=== PATIENT | female | born 1970 | race Caucasian/White ===

== ENCOUNTER → 2016-11-16 | Outpatient (CLI) | payer SELFPAY ==
[~2016-11-16] MED LIST: BISO1TAB41 PO; BPR150TCR PO; CIPR500T4 PO; CIPR500T78 PO; CITA40TA19 PO; CLIN300C3 PO; DICY20TA10 PO; DICY20TA33 PO; DICY20TA57 PO; DIVA500T PO; DULO60CA6 PO; ESCI20TA PO; ESTR0.5T PO; ESTR2TAB PO; ESTR2TAB4 PO; HYDR-3062 PO; HYDR25TA4 PO; LEVE100015 PO; LEVE500T PO; LEVE500T6 PO; LEVE500T76 PO; LORA-794 PO; LVT.1T PO; METO-272 PO; METO100T2 PO; METR500T21 PO; MORP15TA8 PO; MULT1TAB12 PO; Metronidazole PO; NAPR550T PO; NF-ESOM40C PO; OMEP-10 GT; OMEP1CAP10 PO; ONDA8TAB2 PO; ONDA8TAB6 PO; ORPH100T PO; OXYC-272 PO; OXYC-471 PO; PRM25T PO; PROM25TA14 PO; QUET50TA PO; RANI150T90 PO; TOPI100T2 PO; TRAM50TA2 PO; TRAZ-144 PO; VENL75CA PO
--- NOTE | 2016-11-16 10:35 | Diagnostic Imaging Report ---
PROCEDURE: US Abdomen, limited. TECHNIQUE: Multiple realtime grayscale images were obtained over the abdomen in various projections. INDICATION: Right upper quadrant pain. COMPARISON: Right upper quadrant ultrasound from 09/17/2013. FINDINGS: The liver is enlarged measuring 23 cm in length. It demonstrates diffuse increased echogenicity indicative of hepatic steatosis. There is no focal hepatic mass. The main portal vein is patent with antegrade flow. The gallbladder is distended without gallstones, wall thickening, or pericholecystic fluid. The common bile duct measures up to 0.4 cm in diameter. No intrahepatic biliary dilation. The visualized portions of the pancreas are normal. Portions of the head and tail are obscured by overlying bowel gas. The right kidney is normal in size. No hydronephrosis, shadowing calculi, or suspicious mass lesion. IMPRESSION: 1. Hepatomegaly with diffuse hepatic steatosis. 2. Normal gallbladder and common bile duct. Dictated by: Dictated on workstation # [id number]
== END ==
LOC: RAD 07:28
PROVIDERS: ATTEND Nurse Practitioner Adult Health
DX: K76.0 Fatty (change of) liver, not elsewhere classified (principal); R16.0 Hepatomegaly, not elsewhere classified
CPT/HCPCS: 76705

== ENCOUNTER → 2017-05-25 | Outpatient (CLI) | payer OTHER ==
[2017-05-25 09:43] LABS: THYROID STIMULATING HORMONE 5.76 UIU/ML (0.35-4.94)
--- NOTE | 2017-05-25 10:48 | Diagnostic Imaging Report ---
CLINICAL INDICATION: Patient with hyperthyroidism. COMPARISONS: None. FINDINGS: THYROID NODULES: There is a 1.1 cm x 0.5 cm x 0.7 cm slightly heterogeneous isoechoic nodule within the mid anterior aspect of the right thyroid gland. There is Doppler flow seen associated with this nodule. There are no other thyroid nodules seen. THYROID GLAND: Besides the thyroid nodule, the thyroid gland has normal size, shape and echogenicity. The right lobe measures 4.2 cm x 1.1 cm x 1.1 cm and the left lobe measures 4.2 cm x 0.9 cm x 1.2 cm in their three dimensions. ISTHMUS: The isthmus is unremarkable and measures 3 mm in thickness. Impression: There is a 1.1 cm nodule within the right thyroid gland. Otherwise, the thyroid gland is unremarkable. Dictated by: Dictated on workstation # [id number]
[2017-05-27 07:44] LABS: THYROGLOBULIN AUTOANTIBODY PT 0.13 Units (0.00-0.50)
== END ==
LOC: RAD 08:24
PROVIDERS: ATTEND Surgery
DX: E04.1 Nontoxic single thyroid nodule (principal)
CPT/HCPCS: 36415; 76536; 84439; 84443; 84480; 86376; 86800

== ENCOUNTER → 2017-06-01 | Outpatient (CLI) | payer OTHER ==
[~2017-06-01] VITALS: Ht 165.1 cm; Wt 78.5 kg
[~2017-06-01] MED LIST changes: +LIDOCAINE 1% INJ 20 ML (XYLOCAINE) VIAL INJ ONE
[2017-06-01 13:41] VITALS: BP 120/67
[2017-06-01 14:15] VITALS: BP 129/80
--- NOTE | 2017-06-01 16:12 | Diagnostic Imaging Report ---
EXAMINATION: US-guided fine needle biopsy-thyroid. INDICATION: Right thyroid nodule. CONSENT: Informed consent was obtained from the patient. The risks, benefits, potential complications and alternatives were reviewed and all questions answered to the patient's satisfaction. FINDINGS: Solid 1 cm right thyroid nodule. PROCEDURE: After sterile preparation and draping, 1% lidocaine was utilized for local anesthesia. A 25-gauge hypodermic needle is introduced into the right thyroid nodule under live ultrasound guidance. After confirming adequate positioning with saved ultrasound images, multiple passes of fine needle aspiration is performed and repeated 4 times. The patient tolerated the procedure well with no immediate complications. IMPRESSION: Successful US-guided fine needle aspiration biopsy of right thyroid nodule. Dictated by: Dictated on workstation # [id number]
== END ==
LOC: RAD 13:23
PROVIDERS: ATTEND Surgery
DX: E04.1 Nontoxic single thyroid nodule (principal)
CPT/HCPCS: 76942

== ENCOUNTER 2017-06-22 05:35 | Outpatient (CLI) | payer SELFPAY ==
[~2017-06-22] VITALS: Ht 165.1 cm; Wt 88.5 kg
[~2017-06-22 05:35] MED LIST changes: -LIDOCAINE 1% INJ 20 ML (XYLOCAINE) VIAL INJ ONE
[2017-06-22] MEDS ORDERED: METO100T12 PO (16:19)
[2017-06-22] MEDS ORDERED: RANI150T90 PO (16:19)
[2017-06-22] MEDS ORDERED: ESCI10TA55 PO (16:31)
== END 2017-06-22 16:32 ==
LOC: PREOP 05:35
PROVIDERS: ATTEND Surgery
DX: Z01.818 Encounter for other preprocedural examination (principal); E04.2 Nontoxic multinodular goiter

== ENCOUNTER 2017-06-29 09:13 | Day surgery (SDC) | payer SELFPAY ==
[~2017-06-29] VITALS: Ht 165.1 cm; Wt 88.5 kg
[~2017-06-29 09:13] MED LIST changes: +ESCI10TA55 PO; +METO100T12 PO
[2017-06-29] MEDS ORDERED: ceFAZolin 2 GM/50 ML NS 50 ML ONE (09:36)
[2017-06-29] MEDS ORDERED: MIDAZOLAM 2 MG/2 ML (VERSED) VIAL IM ONE (09:45)
[2017-06-29] MEDS ORDERED: ceFAZolin 2 GM/50 ML NS 50 ML IV ONE (09:45)
[2017-06-29] MEDS: LACTATED RINGERS 1,000 ML IV PRN ×3 (09:52→13:19)
--- NOTE | 2017-06-29 09:52 | Progress Note-Pre Operative ---
Pre-Operative Progress Note H&P Reviewed The H&P was reviewed, patient examined and no changes noted. Date Seen by Provider: Jun 15, 2017 Time Seen by Provider: 11:58 Date H&P Reviewed: Jun 29, 2017 Time H&P Reviewed: 09:52 Pre-Operative Diagnosis: Thyroid nodules INDY GOEL MD Jun 29, 2017 9:52 am
[2017-06-29 09:55] VITALS: BP 137/92
[2017-06-29] MEDS ORDERED: BUP/EPI 0.5% 1:200,000 (MARCAINE) 10ML VIAL IJ ONE (10:15)
[2017-06-29] MEDS ORDERED: THROMBIN SPRAY KIT 5,000 UNIT VIAL ONE (10:16)
[2017-06-29] MEDS ORDERED: fentaNYL INJECTION 250 MCG/5 ML AMP ONE (10:19)
[2017-06-29] MEDS ORDERED: MIDAZOLAM 2 MG/2 ML (VERSED) VIAL ONE (10:19)
[2017-06-29] MEDS ORDERED: GLYCOPYRROLATE 0.2 MG/ML (ROBINUL) 2 ML VIAL ONE (11:17)
[2017-06-29] MEDS ORDERED: ROCURONIUM 50 MG/5 ML (ZEMURON) VIAL IV ONE (11:17)
[2017-06-29] MEDS ORDERED: DEXAMETHASONE 10 MG/ML (DECADRON) 1 ML VIAL ONE (11:17)
[2017-06-29] MEDS ORDERED: proPOfol 200 MG/20 ML (DIPRIVAN) VIAL IV ONE (11:17)
[2017-06-29] MEDS ORDERED: NEOSTIGMINE (BLOXIVERZ ) 1 MG/1ML 10 ML VIAL ONE (11:17)
[2017-06-29] MEDS ORDERED: ONDANSETRON 4 MG/2 ML (SDV) Z0FRAN ONE (11:17)
[2017-06-29] MEDS ORDERED: LIDOCAINE PF 2% 5 ML (XYLOCAINE) VIAL ONE (11:17)
[2017-06-29] MEDS ORDERED: SEVOFLURANE (ULTANE) 15 ML INHAL SOLN ONE (11:17)
[2017-06-29] MEDS ORDERED: SUCCINYLCHOLINE INJ 100 MG/5 ML SYR ONE (11:17)
[2017-06-29] MEDS ORDERED: ONDANSETRON 4 MG/2 ML (SDV) Z0FRAN IVP PRN ×2 (12:30→12:45)
[2017-06-29] MEDS ORDERED: morphine INJ 10 MG/ML 1ML (SYR OR VIAL) IVP PRN (12:45)
[2017-06-29] MEDS ORDERED: PROMETHAZINE INJ 25 MG/ML (PHENERGAN) AMP ONE (12:57)
[2017-06-29] MEDS ORDERED: PROMETHAZINE INJ 25 MG/ML (PHENERGAN) AMP IVP ONE (13:15)
[2017-06-29] MEDS: fentaNYL INJECTION 100 MCG/2 ML AMP IVP PRN ×3 (13:15→18:35)
[2017-06-29 14:00] VITALS: BP 149/93
--- NOTE | 2017-06-29 14:51 | Consultation-Cardiology ---
HPI-Cardiology Cardiology Consultation: Date of Consultation 06/29/17 Time Seen by Provider: 14:40 Date of Admission 06-29-17 Attending Physician Nikhil Goel MD Admitting Physician Williams Saeed MD Consulting Physician Carito Tee MD HPI: Chief Complaint: EKG changes Ms. Brody is a 46 year old female admitted to [facility] post thyroid surgery. She is currently in bed with an ice pack at the surgical site to her neck. She denies any c/o CP, dyspnea, syncope or near syncope. She does report h/o palpitations in the past for which she follows with her PCP. She denies any LE edema. She states she underwent thyroid surgery d/t "a lump' on her thyroid. She does report surgical site discomfort at this time. Review of Systems-Cardiology Review of Systems Constitutional: No chills, No fever Eyes: No blindness, No blurred vision Ears/Nose/Throat: No recent hearing loss, throat pain (surgical site) Respiratory: As described under HPI Cardiovascular: As described under HPI Gastrointestinal: No constipation, No diarrhea, No vomiting Genitourinary: No dysuria Musculoskeletal: no symptoms reported Skin: No rash, No ulcerations Psychiatric/Neurological: No focal weakness, No syncope Hematologic: No bleeding abnormalities [id number] Hx Patient Social History Alcohol Use: Denies Use Recreational Drug Use: No Smoking Status: Former Smoker Former smoker/When Quit: Aug 11, 2014 Type Used: Cigarettes Recent Foreign Travel: No Recent Infectious Disease Expo: No Immunizations Up To Date Tetanus Booster (TDap): Unknown Date of Influenza Vaccine: May 06, 2014 Past Medical History PMH As described under Assessment. Family Medical History Family Medical History: She reports her brother had CAD and before age 50. Reports father has h/o CAD. Family History: 19 FATHER Diabetes mellitus Hypercholesterolemia Hypertension Kidney disease Myocardial infarction Neoplasm (In the eye) 19 MOTHER Alcoholism Drug abuse Hypertension Psychosocial problem Seizure disorder G8 BROTHER Congenital heart disease Drug abuse Myocardial infarction Allergies and Home Medications Allergies Coded Allergies: No Known Drug Allergies (Unverified , 05/04/10) Home Medications Escitalopram Oxalate 10 Mg Tablet, 10 MG PO DAILY, (Reported) Fluticasone Propionate 9.9 Ml [place].susp, 2 SPRAYS NS DAILY PRN for CONGESTION, (Reported) Hydrocodone/Acetaminophen 1 Each Tablet, 1-2 TAB PO 4-6HR PRN for PAIN, #30 Ref 0 Prescribed by: NIKHIL GOEL on 06/29/17 1600 Levothyroxine Sodium 100 Mcg Tablet, 100 MCG PO DAILY for 30 Days, #30 Ref 6 Prescribed by: NIKHIL GOEL on 06/29/17 1601 Loratadine 10 Mg Tablet, 10 MG PO DAILY, (Reported) Metoprolol Tartrate 100 Mg Tablet, 100 MG PO DAILY, (Reported) Quetiapine Fumarate 50 Mg Tablet, 50 MG PO HS, (Reported) Ranitidine HCl 150 Mg Tablet, 150 MG PO BID, (Reported) Venlafaxine HCl 75 Mg Tab, 75 MG PO BID, (Reported) Physical Exam-Cardiology Physical Exam Vital Signs/I&O Vital Sign - Last 12Hours 06/29/17 06/29/17 06/29/17 06/29/17 09:55 10:08 14:00 15:58 Temp 96.9 96.9 97.7 Pulse 92 72 76 Resp 18 18 B/P (MAP) 137/92 (107) 149/93 (111) Pulse Ox 96 96 O2 Delivery Room Air Nasal Cannula O2 Flow Rate 2.00 06/29/17 16:00 Temp 96.8 Pulse 73 Resp 18 B/P (MAP) 162/96 (118) Pulse Ox 95 O2 Delivery Nasal Cannula O2 Flow Rate 2.00 Capillary Refill : Constitutional: AAO x 3, well-developed, well-nourished HEENT: PERRL Neck: other (S/P thyroidectomy - surgical site) Respiratory: No accessory muscle use, chest expansion is symmetric, chest is bilaterally symmetric, lungs clear to auscultation Cardiovascular: regular rate-rhythm, S1 and S2 Gastrointestinal: No tender, soft, audible bowel sounds Rectal: deferred Extremities: no lower extremity edema bilateral Neurologic/Psychiatric: grossly intact Skin: No rash, No ulcerations Data Review Labs Laboratory Tests 06/29/17 14:26: Troponin I < 0.30 A/P-Cardiology Assessment/Admission Diagnosis Reported transient abnormality of ECG during surgery (possible ST elevation lasting only a couple of seconds, per report) No cliniccal evidence of ACS, thus far Echo of 06/29/27: LVEF 65-70%, no RWMA or valvular abnormality HTN S/P thyroidectomy d/t thyroid nodules by Dr. Goel Depression Seizure disorder Family h/o premature CAD Discussion and Recomendations Abnormal EKG (reported mild ST elevation) seen at the end of thyroid surgery which appears to have been transient We will check serial troponin Echocardiogram to evaluate LVEF Continue home medications for hypertension Further recommendations will be based on her hospital course We would like to thank the surgical services for this consult This consult is being scribed by Arnol Ewing APRN on behalf of Dr. Tee after discussion regarding plan of care Physician Assessment Physician Assessment No cp or palp or syncope or shortness of breath. Some discomfort at site of surgery Lungs: clear Cor: reg Ext: no c/c/e A&R * As documented in our note above that I updated (italics) and as noted below * I discussed her case in detail with Dr Goel, her surgeon, over the phone * I spoke with her and her daughter and answered questions * Continue observation, including serial card enz and ECGs and tele * If no evidence of any acute card issues, then d/c tomorrow with outpatient f/u RICKI EWING SULFONATOR OPERATOR Jun 29, 2017 14:51 CARITO TEE MD FACP FAC CCDS Jun 29, 2017 18:21
--- NOTE | 2017-06-29 15:51 | Operative Report ---
Operative Report Date of Procedure/Surgery Jun 29, 2017 Surgeon (s) INDY GOEL MD Office Messenger Helper (s): N/A Post-Operative Diagnosis Same Procedure Performed Total thyroidectomy Intraoperative neuro monitoring Description of Procedure Anesthesia Type: General Estimated blood loss (mL): Minimal Specimen(s) collected/removed Both lobes of thyroid with isthmus Description of the Procedure Indication for procedure: This lady presented with a right thyroid nodule, that was subjected to fine-needle aspiration. It turned out to be nondiagnostic. Having discussed the options of repeating the biopsy at a later date versus thyroidectomy, she opted to undergo thyroidectomy to establish a definitive diagnosis. Even though right hemithyroidectomy would have sufficient, the patient requested total thyroidectomy to avoid the least to probability of requiring completion thyroidectomy should a carcinoma be found on histological examination. Informed consent was obtained after reviewing the operative details and complications of hematoma, transient hoarseness of voice and hypocalcemia. Description of the procedure: She was placed supine on the operating table and general anesthesia induced using an endotracheal tube. Ancef was administered intravenously as prophylaxis against wound infection. Sequential compression devices were placed around her legs, to minimize the risk of venous thrombosis. Her neck and upper chest were prepared and draped in the usual sterile manner. Pre- emptive analgesia was established using 0.5 percent Marcaine with epinephrine. A 4 cm transverse incision was made along the skin crease of the neck and platysma incised transversely. Flaps were raised superiorly to the level of the thyroid cartilage and inferiorly to the sternal notch. Cervical fascia was incised vertically and the strap muscles were retracted laterally. I began the dissection on the left side. The lobe was retracted medially, displaying a distinct middle thyroid vein. It was controlled using Harmonic scalpel. Superior thyroid artery was then controlled between 0 silk sutures, reinforced with and ligated.. Recurrent laryngeal nerve was identified by visual inspection and nerve stimulation technique. It was kept out of harm's way throughout the procedure. Branches of the inferior thyroid artery were controlled using a combination of ligated ligaclips and Harmonic scalpel, protecting the nerve. Both parathyroid glands were identified and preserved along with their blood supply. The isthmus was then divided and the left lobe sent separately for histological examination. A similar dissection was performed on the right side. I was able to identify both parathyroid glands and preserve their blood supply. We had the anesthesiologist conduct Valsalva maneuver, looking for any venous bleeding. There wasn't any. Gelfoam, soaked in thrombin solution was placed along the tracheo-esophageal groove to optimize hemostasis. Neck was then flexed in preparation for closure. Cervical fascia was approximated using 2-0 Vicryl. Platysma was closed using 3- 0 Vicryl. Skin was closed using 4-0 Vicryl, in a subcuticular fashion. She tolerated the procedure well, was extubated in the operating room and taken to the recovery room in a stable condition. Findings of the Procedure See op report Allergies and Home Medications Allergies Coded Allergies: No Known Drug Allergies (Unverified , 05/04/10) Home Medications Escitalopram Oxalate 10 Mg Tablet, 10 MG PO DAILY, (Reported) Metoprolol Tartrate 100 Mg Tablet, 100 MG PO BID, (Reported) Quetiapine Fumarate 50 Mg Tablet, 50 MG PO HS, (Reported) Ranitidine HCl 150 Mg Tablet, 150 MG PO BID, (Reported) Venlafaxine HCl 75 Mg Cap.er.24h, 75 MG PO BID WITH MEALS, (Reported) INDY GOEL MD Jun 29, 2017 3:51 pm
--- NOTE | 2017-06-29 15:58 | Discharge Inst-Simple/Standard ---
Discharge Inst-Standard Discharge Medications New, Converted or Re-Newed RX: RX on Chart Patient Instructions/Follow Up Plan of Care/Instructions/FU: Dressings off in area. Follow-up in 3 weeks Activity as Tolerated: Yes Discharge Diet: No Restrictions INDY GOEL MD Jun 29, 2017 3:58 pm
[2017-06-29] MEDS ORDERED: VNL75T PO (15:59)
[2017-06-29 16:00] VITALS: BP 162/96
[2017-06-29] MEDS ORDERED: HYDR-3812 PO (16:00)
[2017-06-29] MEDS ORDERED: LEVO100T7 PO (16:01)
[2017-06-29] MEDS ORDERED: LORA10TA7 PO (16:36)
[2017-06-29] MEDS ORDERED: [UNRECOGNIZED DRUG - CODE] NS (16:36)
[2017-06-29] MEDS ORDERED: INFLUENZA TRIvalent 2017-2018 0.5 ML/45 MCG SYR IM ONE (16:45)
[2017-06-29] MEDS: VENlafaxine XR 75 MG (EFFEXOR XR) CAP PO SCH (17:48)
[2017-06-29] MEDS ORDERED: METOCLOPRAMIDE INJ 10 MG/2 ML (REGLAN) ONE (18:31)
[2017-06-29] MEDS: LACTATED RINGERS 1,000 ML IV SCH ×2 (19:32→22:33)
[2017-06-29 20:09] VITALS: BP 138/85
[2017-06-29] MEDS ORDERED: NON-FORMULARY MEDICATION 1 EA EA (Quetiapine Fumarate (Seroquel) 50 MG) PO SCH (21:00)
[2017-06-29] MEDS ORDERED: QUEtiapine 25 MG (SEROquel) TAB IMMEDIATE RELEASE PO SCH (21:00)
[2017-06-29] MEDS ORDERED: SCOPOLAMINE 1.5 MG (TRANSDERM-SCOP) PATCH TOP SCH (21:00)
[2017-06-29] MEDS ORDERED: NON-FORMULARY MEDICATION 1 EA EA (Metoprolol Tartrate 100 MG) PO SCH (21:00)
[2017-06-29] MEDS ORDERED: raNItidine (ZANTAC) 150 MG TAB NON-FORMULARY PO SCH (21:00)
[2017-06-29] MEDS ORDERED: PROMETHAZINE INJ 25 MG/ML (PHENERGAN) AMP IVP PRN (21:00)
[2017-06-29] MEDS: meTOprolol TARTRATE 50 MG (LOPRESSOR) TAB PO SCH (22:13)
[2017-06-29] MEDS: FAMOTIDINE 20 MG (PEPCID) TABLET PO SCH (22:14)
[2017-06-29] MEDS: HYDROcodone/APAP 5 MG/325 MG (LORTAB) TAB PO PRN (22:17)
[2017-06-30] VITALS: BP 118/66
[2017-06-30] MEDS ORDERED: METOCLOPRAMIDE INJ 10 MG/2 ML (REGLAN) IVP PRN
[2017-06-30] MEDS ORDERED: METOCLOPRAMIDE INJ 10 MG/2 ML (REGLAN) IVP SCH
[2017-06-30 04:00] VITALS: BP 109/72
[2017-06-30] MEDS: HYDROcodone/APAP 5 MG/325 MG (LORTAB) TAB PO PRN ×2 (04:24→09:05)
[2017-06-30] MEDS: VENlafaxine XR 75 MG (EFFEXOR XR) CAP PO SCH (05:50)
[2017-06-30 06:12] LABS: MEAN PLATELET VOLUME 9.4 FL (7.4-10.4); RED BLOOD COUNT 4.36 10^6/uL (4.35-5.85); RED CELL DISTRIBUTION WIDTH 15.5 % (10.0-14.5); WHITE BLOOD COUNT 14.1 10^3/uL (4.3-11.0)
[2017-06-30] MEDS ORDERED: LEVOTHYROXINE 100 MCG (LEVOTHROID) TAB PO SCH (06:30)
[2017-06-30 07:21] LABS: ALANINE AMINOTRANSFERASE 49 U/L (0-55); ANION GAP 12 MMOL/L (5-14); ASPARTATE AMINO TRANSFERASE 26 U/L (5-34); BILIRUBIN,TOTAL 0.7 MG/DL (0.1-1.0); BLOOD UREA NITROGEN 10 MG/DL (7-18); BUN/CREATININE RATIO 15; CALCIUM 9.1 MG/DL (8.5-10.1); CARBON DIOXIDE 24 MMOL/L (21-32); CHLORIDE 103 MMOL/L (98-107); CREATININE SERUM 0.67 MG/DL (0.60-1.30); GFR ESTIMATED > 60; GLUCOSE 125 MG/DL (70-105); MAGNESIUM 1.8 MG/DL (1.8-2.4); POTASSIUM 4.1 MMOL/L (3.6-5.0); SODIUM 139 MMOL/L (135-145)
[2017-06-30 07:32] LABS: THYROID STIMULATING HORMONE 1.56 UIU/ML (0.35-4.94)
[2017-06-30 08:54] VITALS: BP 114/72
[2017-06-30] MEDS ORDERED: NON-FORMULARY MEDICATION 1 EA EA (Escitalopram Oxalate 10 MG) PO SCH (09:00)
[2017-06-30] MEDS: FAMOTIDINE 20 MG (PEPCID) TABLET PO SCH (09:05)
[2017-06-30] MEDS: meTOprolol TARTRATE 50 MG (LOPRESSOR) TAB PO SCH (09:05)
--- OUTSIDE RECORDS SUMMARY | 2017-06-30 09:30 | XMS REPORT | Continuity of Care Document ---
Author Author [facility] Address Unknown Phone Unavailable Allergies Active Description Code Type Severity Reaction Onset Reported/Identified Relationship to Patient Clinical Status Yes No Known Drug Allergies [id number] Drug Allergy Unknown N/A 05/04/2010 Yes BuSpar 10 mg tablet Drug Allergy N/A N/A 02/07/2012 Yes Seroquel 100 mg tablet Drug Allergy N/A N/A 02/07/2012 Yes BuSpar 10 mg tablet Drug Allergy 02/07/2012 Yes Seroquel 100 mg tablet Drug Allergy 02/07/2012 Medications There is no data. Problems Date Dx Coded Attending Type Code Diagnosis Diagnosed By 12/19/2008 461.8 RHINOSINUSITIS 12/19/2008 627.9 MENOPAUSAL AND POSTMENOPAUSAL DISORDER UNSPECIFIED 12/19/2008 V07.4 HORMONE REPLACEMENT THERAPY (POSTMENOPAUSAL) 12/19/2008 461.8 RHINOSINUSITIS 12/19/2008 627.9 MENOPAUSAL AND POSTMENOPAUSAL DISORDER UNSPECIFIED 12/19/2008 V07.4 HORMONE REPLACEMENT THERAPY (POSTMENOPAUSAL) 12/19/2008 [facility], ABIEL R 461.8 RHINOSINUSITIS 12/19/2008 [facility], ABIEL R 627.9 MENOPAUSAL AND POSTMENOPAUSAL DISORDER UNSPECIFIED 12/19/2008 [facility], ABIEL R V07.4 HORMONE REPLACEMENT THERAPY (POSTMENOPAUSAL) 12/19/2008 [facility], ABIEL R 461.8 RHINOSINUSITIS 12/19/2008 [facility], ABIEL R 627.9 MENOPAUSAL AND POSTMENOPAUSAL DISORDER UNSPECIFIED 12/19/2008 [facility], ABIEL R V07.4 HORMONE REPLACEMENT THERAPY (POSTMENOPAUSAL) 12/19/2008 [facility], ABIEL R 461.8 RHINOSINUSITIS 12/19/2008 [facility], ABIEL R 627.9 MENOPAUSAL AND POSTMENOPAUSAL DISORDER UNSPECIFIED 12/19/2008 [facility], ABIEL R V07.4 HORMONE REPLACEMENT THERAPY (POSTMENOPAUSAL) 12/19/2008 ANGELY SOUZA APRN LUIS 461.8 RHINOSINUSITIS 12/19/2008 [employer] DES[employer] SUPERVIS[employer], ANGELY SMITH 627.9 MENOPAUSAL AND POSTMENOPAUSAL DISORDER UNSPECIFIED 12/19/2008 LIBBY EDWARDSN, ANGELY SMITH V07.4 HORMONE REPLACEMENT THERAPY (POSTMENOPAUSAL) 12/19/2008 LIBBY EDWARDSN, ANGELY SMITH 461.8 RHINOSINUSITIS 12/19/2008 LIBBY EDWARDSN, ANGELY SMITH 627.9 MENOPAUSAL AND POSTMENOPAUSAL DISORDER UNSPECIFIED 12/19/2008 LIBBY EDWARDSN, ANGELY SMITH V07.4 HORMONE REPLACEMENT THERAPY (POSTMENOPAUSAL) 12/19/2008 [facility], ABIEL R 461.8 RHINOSINUSITIS 12/19/2008 [facility], ABIEL R 627.9 MENOPAUSAL AND POSTMENOPAUSAL DISORDER UNSPECIFIED 12/19/2008 [facility], ABIEL R V07.4 HORMONE REPLACEMENT THERAPY (POSTMENOPAUSAL) 12/19/2008 [facility], ABIEL R 461.8 RHINOSINUSITIS 12/19/2008 [facility], ABIEL R 627.9 MENOPAUSAL AND POSTMENOPAUSAL DISORDER UNSPECIFIED 12/19/2008 [facility], ABIEL R V07.4 HORMONE REPLACEMENT THERAPY (POSTMENOPAUSAL) 12/19/2008 JEREMIE PRIDE PHD 461.8 RHINOSINUSITIS 12/19/2008 JEREMIE PRIDE PHD 627.9 MENOPAUSAL AND POSTMENOPAUSAL DISORDER UNSPECIFIED 12/19/2008 JEREMIE PRIDE PHD V07.4 HORMONE REPLACEMENT THERAPY (POSTMENOPAUSAL) 12/19/2008 SUSAN BYRD MD 461.8 RHINOSINUSITIS 12/19/2008 SUSAN BYRD MD 627.9 MENOPAUSAL AND POSTMENOPAUSAL DISORDER UNSPECIFIED 12/19/2008 SUSAN BYRD MD V07.4 HORMONE REPLACEMENT THERAPY (POSTMENOPAUSAL) 12/19/2008 JEREMIE PRIDE PHD 461.8 RHINOSINUSITIS 12/19/2008 JEREMIE PRIDE PHD 627.9 MENOPAUSAL AND POSTMENOPAUSAL DISORDER UNSPECIFIED 12/19/2008 JEREMIE PRIDE PHD V07.4 HORMONE REPLACEMENT THERAPY (POSTMENOPAUSAL) 12/19/2008 JEREMIE PRIDE PHD 461.8 RHINOSINUSITIS 12/19/2008 JEREMIE PRIDE PHD 627.9 MENOPAUSAL AND POSTMENOPAUSAL DISORDER UNSPECIFIED 12/19/2008 JEREMIE PRIDE PHD V07.4 HORMONE REPLACEMENT THERAPY (POSTMENOPAUSAL) 12/19/2008 [employer] DES[employer] SUPERVISOR, MARTINEZ 461.8 RHINOSINUSITIS 12/19/2008 [employer] DESIGN SUPERVISOR, MARTINEZ 627.9 MENOPAUSAL AND POSTMENOPAUSAL DISORDER UNSPECIFIED 12/19/2008 DAYSI DESIGN SUPERVISOR, MARTINEZ V07.4 HORMONE REPLACEMENT THERAPY (POSTMENOPAUSAL) 12/19/2008 [employer]SI DESIGN SUPERVISOR, MARTINEZ 461.8 RHINOSINUSITIS 12/19/2008 DAYSI DESIGN SUPERVISOR, MARTINEZ 627.9 MENOPAUSAL AND POSTMENOPAUSAL DISORDER UNSPECIFIED 12/19/2008 DAYSI DESIGN SUPERVISOR, MARTINEZ V07.4 HORMONE REPLACEMENT THERAPY (POSTMENOPAUSAL) 12/19/2008 BIGG JETER, JEREMIE Holden 461.8 RHINOSINUSITIS 12/19/2008 BIGG PHD, JEREMIE Holden 627.9 MENOPAUSAL AND POSTMENOPAUSAL DISORDER UNSPECIFIED 12/19/2008 BIGG JETER, JEREMIE Holden V07.4 HORMONE REPLACEMENT THERAPY (POSTMENOPAUSAL) 12/19/2008 [employer] DESIGN SUPERVISOR, MARTINEZ 461.8 RHINOSINUSITIS 12/19/2008 [employer]SI DESIGN SUPERVISOR, MARTINEZ 627.9 MENOPAUSAL AND POSTMENOPAUSAL DISORDER UNSPECIFIED 12/19/2008 DAYSI DESIGN SUPERVISOR, MARTINEZ V07.4 HORMONE REPLACEMENT THERAPY (POSTMENOPAUSAL) 12/19/2008 RENAY DESIGN SUPERVISOR, HUSSAIN S 461.8 RHINOSINUSITIS 12/19/2008 RENAY DESIGN SUPERVISOR, HUSSAIN S 627.9 MENOPAUSAL AND POSTMENOPAUSAL DISORDER UNSPECIFIED 12/19/2008 RENAY DESIGN SUPERVISOR, HUSSAIN S V07.4 HORMONE REPLACEMENT THERAPY (POSTMENOPAUSAL) 12/19/2008 DAYSI DESIGN SUPERVISOR, MARTINEZ 461.8 RHINOSINUSITIS 12/19/2008 DAYSI DESIGN SUPERVISOR, MARTINEZ 627.9 MENOPAUSAL AND POSTMENOPAUSAL DISORDER UNSPECIFIED 12/19/2008 DAYSI DESIGN SUPERVISOR, MARTINEZ V07.4 HORMONE REPLACEMENT THERAPY (POSTMENOPAUSAL) 12/19/2008 BIGG PHD, JEREMIE Holden 461.8 RHINOSINUSITIS 12/19/2008 BIGG JETER, JEREMIE Holden 627.9 MENOPAUSAL AND POSTMENOPAUSAL DISORDER UNSPECIFIED 12/19/2008 BIGG JETER, JEREMIE Holden V07.4 HORMONE REPLACEMENT THERAPY (POSTMENOPAUSAL) 12/19/2008 RENAY DESIGN SUPERVISOR, HUSSAIN S 461.8 RHINOSINUSITIS 12/19/2008 RENAY HOUSTON, HUSSAIN S 627.9 MENOPAUSAL AND POSTMENOPAUSAL DISORDER UNSPECIFIED 12/19/2008 RENAY DESIGN SUPERVISOR, HUSSAIN S V07.4 HORMONE REPLACEMENT THERAPY (POSTMENOPAUSAL) 12/19/2008 RENAY DESIGN SUPERVISOR, HUSSAIN S 461.8 RHINOSINUSITIS 12/19/2008 RENAY DESIGN SUPERVISOR, HUSSAIN S 627.9 MENOPAUSAL AND POSTMENOPAUSAL DISORDER UNSPECIFIED 12/19/2008 RENAY DESIGN SUPERVISOR, HUSSAIN S V07.4 HORMONE REPLACEMENT THERAPY (POSTMENOPAUSAL) 12/19/2008 RENAY DESIGN SUPERVISOR, HUSSAIN S 461.8 RHINOSINUSITIS 12/19/2008 RENAY DESIGN SUPERVISOR, HUSSAIN S 627.9 MENOPAUSAL AND POSTMENOPAUSAL DISORDER UNSPECIFIED 12/19/2008 RENAY DESIGN SUPERVISOR, HUSSAIN S V07.4 HORMONE REPLACEMENT THERAPY (POSTMENOPAUSAL) 12/19/2008 RENAY DESIGN SUPERVISOR, HUSSAIN S 461.8 RHINOSINUSITIS 12/19/2008 RENAY DESIGN SUPERVISOR, HUSSAIN S 627.9 MENOPAUSAL AND POSTMENOPAUSAL DISORDER UNSPECIFIED 12/19/2008 RENAY DESIGN SUPERVISOR, HUSSAIN S V07.4 HORMONE REPLACEMENT THERAPY (POSTMENOPAUSAL) 12/19/2008 RENAY DESIGN SUPERVISOR, HUSSAIN S 461.8 RHINOSINUSITIS 12/19/2008 RENAY DESIGN SUPERVISOR, HUSSAIN S 627.9 MENOPAUSAL AND POSTMENOPAUSAL DISORDER UNSPECIFIED 12/19/2008 RENAY DESIGN SUPERVISOR, HUSSAIN S V07.4 HORMONE REPLACEMENT THERAPY (POSTMENOPAUSAL) 01/17/2009 789.00 ABDOMINAL PAIN UNSPECIFIED SITE 01/17/2009 789.00 ABDOMINAL PAIN UNSPECIFIED SITE 01/17/2009 [facility], ABIEL R 789.00 ABDOMINAL PAIN UNSPECIFIED SITE 01/17/2009 [facility], ABIEL R 789.00 ABDOMINAL PAIN UNSPECIFIED SITE 01/17/2009 [facility], ABIEL R 789.00 ABDOMINAL PAIN UNSPECIFIED SITE 01/17/2009 ANGELY SOUZA APRN 789.00 ABDOMINAL PAIN UNSPECIFIED SITE 01/17/2009 ANGELY SOUZA APRN 789.00 ABDOMINAL PAIN UNSPECIFIED SITE 01/17/2009 [facility], ABIEL R 789.00 ABDOMINAL PAIN UNSPECIFIED SITE 01/17/2009 [facility], ABIEL R 789.00 ABDOMINAL PAIN UNSPECIFIED SITE 01/17/2009 BIGG JETER, JEREMIE oHlden 789.00 ABDOMINAL PAIN UNSPECIFIED SITE 01/17/2009 CARSON GUSMAN, SUSAN 789.00 ABDOMINAL PAIN UNSPECIFIED SITE 01/17/2009 BIGG JETER, JEREMIE Holden 789.00 ABDOMINAL PAIN UNSPECIFIED SITE 01/17/2009 BIGG JETER, JEREMIE Holden 789.00 ABDOMINAL PAIN UNSPECIFIED SITE 01/17/2009 DAYSI DESIGN SUPERVISOR, MARTINEZ 789.00 ABDOMINAL PAIN UNSPECIFIED SITE 01/17/2009 DAYSI DESIGN SUPERVISOR, MARTINEZ 789.00 ABDOMINAL PAIN UNSPECIFIED SITE 01/17/2009 BIGG PHD, JEREMIE Holden 789.00 ABDOMINAL PAIN UNSPECIFIED SITE 01/17/2009 DAYSI DESIGN SUPERVISOR, MARTINEZ 789.00 ABDOMINAL PAIN UNSPECIFIED SITE 01/17/2009 RENAY DESIGN SUPERVISOR, HUSSAIN S 789.00 ABDOMINAL PAIN UNSPECIFIED SITE 01/17/2009 DAYSI DESIGN SUPERVISOR, MARTINEZ 789.00 ABDOMINAL PAIN UNSPECIFIED SITE 01/17/2009 BIGG JETER, JEREMIE Holden 789.00 ABDOMINAL PAIN UNSPECIFIED SITE 01/17/2009 RENAY DESIGN SUPERVISOR, HUSSAIN S 789.00 ABDOMINAL PAIN UNSPECIFIED SITE 01/17/2009 RENAY DESIGN SUPERVISOR, HUSSAIN S 789.00 ABDOMINAL PAIN UNSPECIFIED SITE 01/17/2009 RENAY DESIGN SUPERVISOR, HUSSAIN S 789.00 ABDOMINAL PAIN UNSPECIFIED SITE 01/17/2009 RENAY DESIGN SUPERVISOR, HUSSAIN S 789.00 ABDOMINAL PAIN UNSPECIFIED SITE 01/17/2009 RENAY DESIGN SUPERVISOR, HUSSAIN S 789.00 ABDOMINAL PAIN UNSPECIFIED SITE 02/26/2009 300.02 GENERALIZED ANXIETY DISORDER 02/26/2009 307.42 INSOMNIA DUE TO STRESS 02/26/2009 401.9 ESSENTIAL HYPERTENSION 02/26/2009 300.02 GENERALIZED ANXIETY DISORDER 02/26/2009 307.42 INSOMNIA DUE TO STRESS 02/26/2009 401.9 ESSENTIAL HYPERTENSION 02/26/2009 [facility], ABIEL R 300.02 GENERALIZED ANXIETY DISORDER 02/26/2009 [facility], ABIEL R 307.42 INSOMNIA DUE TO STRESS 02/26/2009 [facility], ABIEL R 401.9 ESSENTIAL HYPERTENSION 02/26/2009 [facility], ABIEL R 300.02 GENERALIZED ANXIETY DISORDER 02/26/2009 [facility], ABIEL R 307.42 INSOMNIA DUE TO STRESS 02/26/2009 BIGG LSCS, ABIEL R 401.9 ESSENTIAL HYPERTENSION 02/26/2009 BIGG [facility]SC[facility], ABIEL R 300.02 GENERALIZED ANXIETY DISORDER 02/26/2009 BIGG LSCS, ABIEL R 307.42 INSOMNIA DUE TO STRESS 02/26/2009 BIGG LSCS, ABIEL R 401.9 ESSENTIAL HYPERTENSION 02/26/2009 [employer] DESIGN SUPERVISOR, ANGELY SMITH 300.02 GENERALIZED ANXIETY DISORDER 02/26/2009 SOUZA DESIGN SUPERVISOR, ANGELY SMITH 307.42 INSOMNIA DUE TO STRESS 02/26/2009 LIBBY DESIGN SUPERVISOR, ANGELY SMITH 401.9 ESSENTIAL HYPERTENSION 02/26/2009 SOUZA DESIGN SUPERVISOR, ANGELY SMITH 300.02 GENERALIZED ANXIETY DISORDER 02/26/2009 SOUZA DESIGN SUPERVISOR, ANGELY SMITH 307.42 INSOMNIA DUE TO STRESS 02/26/2009 SOUZA DESIGN SUPERVISOR, ANGELY SMITH 401.9 ESSENTIAL HYPERTENSION 02/26/2009 BIGG LSCS, ABIEL R 300.02 GENERALIZED ANXIETY DISORDER 02/26/2009 BIGG CS, ABIEL R 307.42 INSOMNIA DUE TO STRESS 02/26/2009 BIGG LSCS, ABIEL R 401.9 ESSENTIAL HYPERTENSION 02/26/2009 BIGG LSCS, ABIEL R 300.02 GENERALIZED ANXIETY DISORDER 02/26/2009 BIGG LSCS, ABIEL R 307.42 INSOMNIA DUE TO STRESS 02/26/2009 BIGG CS, ABIEL R 401.9 ESSENTIAL HYPERTENSION 02/26/2009 JEREMIE PRIDE PHD 300.02 GENERALIZED ANXIETY DISORDER 02/26/2009 JEREMIE PRIDE PHD 307.42 INSOMNIA DUE TO STRESS 02/26/2009 JEREMIE PRIDE PHD 401.9 ESSENTIAL HYPERTENSION 02/26/2009 SUSAN BYRD MD 300.02 GENERALIZED ANXIETY DISORDER 02/26/2009 SUSAN BYRD MD 307.42 INSOMNIA DUE TO STRESS 02/26/2009 SUSAN BYRD MD 401.9 ESSENTIAL HYPERTENSION 02/26/2009 JEREMIE PRIDE PHD 300.02 GENERALIZED ANXIETY DISORDER 02/26/2009 JEREMIE PRIDE PHD 307.42 INSOMNIA DUE TO STRESS 02/26/2009 JEREMIE PRIDE PHD 401.9 ESSENTIAL HYPERTENSION 02/26/2009 JEREMIE PRIDE PHD 300.02 GENERALIZED ANXIETY DISORDER 02/26/2009 JEREMIE PRIDE PHD 307.42 INSOMNIA DUE TO STRESS 02/26/2009 JEREMIE PRIDE PHD 401.9 ESSENTIAL HYPERTENSION 02/26/2009 DAYSI DESIGN SUPERVISOR, MARTINEZ 300.02 GENERALIZED ANXIETY DISORDER 02/26/2009 DAYSI DESIGN SUPERVISOR, MARTINEZ 307.42 INSOMNIA DUE TO STRESS 02/26/2009 DAYSI DESIGN SUPERVISOR, MARTINEZ 401.9 ESSENTIAL HYPERTENSION 02/26/2009 DAYSI DESIGN SUPERVISOR, MARTINEZ 300.02 GENERALIZED ANXIETY DISORDER 02/26/2009 DAYSI DESIGN SUPERVISOR, MARTINEZ 307.42 INSOMNIA DUE TO STRESS 02/26/2009 DAYSI DESIGN SUPERVISOR, MARTINEZ 401.9 ESSENTIAL HYPERTENSION 02/26/2009 JEREMIE PRIDE PHD 300.02 GENERALIZED ANXIETY DISORDER 02/26/2009 JEREMIE PRIDE PHD 307.42 INSOMNIA DUE TO STRESS 02/26/2009 JEREMIE PRIDE PHD 401.9 ESSENTIAL HYPERTENSION 02/26/2009 DAYSI DESIGN SUPERVISOR, MARTINEZ 300.02 GENERALIZED ANXIETY DISORDER 02/26/2009 DAYSI DESIGN SUPERVISOR, MARTINEZ 307.42 INSOMNIA DUE TO STRESS 02/26/2009 DAYSI DESIGN SUPERVISOR, MARTINEZ 401.9 ESSENTIAL HYPERTENSION 02/26/2009 RENAY HOUSTON, HUSSAIN S 300.02 GENERALIZED ANXIETY DISORDER 02/26/2009 RENAY DESIGN SUPERVISOR, HUSSAIN S 307.42 INSOMNIA DUE TO STRESS 02/26/2009 RENAY DESIGN SUPERVISOR, HUSSAIN S 401.9 ESSENTIAL HYPERTENSION 02/26/2009 DAYSI DESIGN SUPERVISOR, MARTINEZ 300.02 GENERALIZED ANXIETY DISORDER 02/26/2009 DAYSI DESIGN SUPERVISOR, MARTINEZ 307.42 INSOMNIA DUE TO STRESS 02/26/2009 DAYSI DESIGN SUPERVISOR, MARTINEZ 401.9 ESSENTIAL HYPERTENSION 02/26/2009 JEREMIE PRIDE PHD 300.02 GENERALIZED ANXIETY DISORDER 02/26/2009 JEREMIE PRIDE PHD 307.42 INSOMNIA DUE TO STRESS 02/26/2009 JEREMIE PRIDE PHD 401.9 ESSENTIAL HYPERTENSION 02/26/2009 RENAY DESIGN SUPERVISOR, HUSSAIN S 300.02 GENERALIZED ANXIETY DISORDER 02/26/2009 RENAY DESIGN SUPERVISOR, HUSSAIN S 307.42 INSOMNIA DUE TO STRESS 02/26/2009 RENAY DESIGN SUPERVISOR, HUSSAIN S 401.9 ESSENTIAL HYPERTENSION 02/26/2009 RENAY DESIGN SUPERVISOR, HUSSAIN S 300.02 GENERALIZED ANXIETY DISORDER 02/26/2009 RENAY DESIGN SUPERVISOR, HUSSAIN S 307.42 INSOMNIA DUE TO STRESS 02/26/2009 MARINA NIÑO APRNNDA S 401.9 ESSENTIAL HYPERTENSION 02/26/2009 RENAY HOUSTON, HUSSAIN S 300.02 GENERALIZED ANXIETY DISORDER 02/26/2009 RENAY HOUSTON, HUSSAIN S 307.42 INSOMNIA DUE TO STRESS 02/26/2009 RENAY HOUSTON, HUSSAIN S 401.9 ESSENTIAL HYPERTENSION 02/26/2009 RENAY HOUSTON, HUSSAIN S 300.02 GENERALIZED ANXIETY DISORDER 02/26/2009 RENAY HOUSTON, HUSSAIN S 307.42 INSOMNIA DUE TO STRESS 02/26/2009 RENAY HOUSTON, HUSSAIN S 401.9 ESSENTIAL HYPERTENSION 02/26/2009 RNEAY HOUSTON, HUSSAIN S 300.02 GENERALIZED ANXIETY DISORDER 02/26/2009 RENAY HOUSTON, HUSSAIN S 307.42 INSOMNIA DUE TO STRESS 02/26/2009 MARINA NIÑO APRNNDA S 401.9 ESSENTIAL HYPERTENSION 05/04/2010 Ot 300.00 05/04/2010 Ot 307.81 05/04/2010 Ot 401.9 05/04/2010 Ot V58.69 06/01/2010 Ot 780.2 04/14/2011 Ot 256.2 04/14/2011 Ot 311 04/14/2011 Ot 401.9 04/14/2011 Ot V58.69 04/14/2011 Ot V62.84 01/21/2012 296.33 MO DEPRESSIVE RECURRENT SEVERE W/O PSYCHOTIC BEHAVIOR 01/21/2012 296.33 MO DEPRESSIVE RECURRENT SEVERE W/O PSYCHOTIC BEHAVIOR 01/21/2012 [facility], ABIEL R 296.33 MO DEPRESSIVE RECURRENT SEVERE W/O PSYCHOTIC BEHAVIOR 01/21/2012 [facility], ABIEL R 296.33 MO DEPRESSIVE RECURRENT SEVERE W/O PSYCHOTIC BEHAVIOR 01/21/2012 [facility], ABIEL R 296.33 MO DEPRESSIVE RECURRENT SEVERE W/O PSYCHOTIC BEHAVIOR 01/21/2012 ANGELY SOUZA APRN 296.33 MO DEPRESSIVE RECURRENT SEVERE W/O PSYCHOTIC BEHAVIOR 01/21/2012 ANGELY SOUZA APRN 296.33 MO DEPRESSIVE RECURRENT SEVERE W/O PSYCHOTIC BEHAVIOR 01/21/2012 [facility], ABIEL R 296.33 MO DEPRESSIVE RECURRENT SEVERE W/O PSYCHOTIC BEHAVIOR 01/21/2012 [facility], ABIEL R 296.33 MO DEPRESSIVE RECURRENT SEVERE W/O PSYCHOTIC BEHAVIOR 01/21/2012 BIGG JETER, JEREMIE Holden 296.33 MO DEPRESSIVE RECURRENT SEVERE W/O PSYCHOTIC BEHAVIOR 01/21/2012 SUSAN BYRD MD 296.33 MO DEPRESSIVE RECURRENT SEVERE W/O PSYCHOTIC BEHAVIOR 01/21/2012 BIGG JETER, JEREMIE Holden 296.33 MO DEPRESSIVE RECURRENT SEVERE W/O PSYCHOTIC BEHAVIOR 01/21/2012 BIGG JETER, JEREMIE Holden 296.33 MO DEPRESSIVE RECURRENT SEVERE W/O PSYCHOTIC BEHAVIOR 01/21/2012 GRECIA TAVAREZ APRNETTE 296.33 MO DEPRESSIVE RECURRENT SEVERE W/O PSYCHOTIC BEHAVIOR 01/21/2012 GRECIA TAVAREZ APRNETTE 296.33 MO DEPRESSIVE RECURRENT SEVERE W/O PSYCHOTIC BEHAVIOR 01/21/2012 BIGG JETER, JEREMIE Holden 296.33 MO DEPRESSIVE RECURRENT SEVERE W/O PSYCHOTIC BEHAVIOR 01/21/2012 MARTINEZ TAVAREZ APRN 296.33 MO DEPRESSIVE RECURRENT SEVERE W/O PSYCHOTIC BEHAVIOR 01/21/2012 KELSEY NIÑO APRNA S 296.33 MO DEPRESSIVE RECURRENT SEVERE W/O PSYCHOTIC BEHAVIOR 01/21/2012 MARTINEZ TAVAREZ APRN 296.33 MO DEPRESSIVE RECURRENT SEVERE W/O PSYCHOTIC BEHAVIOR 01/21/2012 BIGG JETER, JEREMIE Holden 296.33 MO DEPRESSIVE RECURRENT SEVERE W/O PSYCHOTIC BEHAVIOR 01/21/2012 MARINA NIÑO APRNNDA S 296.33 MO DEPRESSIVE RECURRENT SEVERE W/O PSYCHOTIC BEHAVIOR 01/21/2012 MARINA NIÑO APRNNDA S 296.33 MO DEPRESSIVE RECURRENT SEVERE W/O PSYCHOTIC BEHAVIOR 01/21/2012 MARINA NIÑO APRNNDA S 296.33 MO DEPRESSIVE RECURRENT SEVERE W/O PSYCHOTIC BEHAVIOR 01/21/2012 MARINA NIÑO APRNNDA S 296.33 MO DEPRESSIVE RECURRENT SEVERE W/O PSYCHOTIC BEHAVIOR 01/21/2012 MARINA NIÑO APRNNDA S 296.33 MO DEPRESSIVE RECURRENT SEVERE W/O PSYCHOTIC BEHAVIOR 01/26/2012 300.00 AN ANXIETY UNSPEC 01/26/2012 300.00 AN ANXIETY UNSPEC [facility]/2012 [facility] AN ANXIETY UNSPEC 01/26/2012 [facility], ABIEL R 300.00 AN ANXIETY UNSPEC 01/26/2012 [facility], ABIEL R 300.00 AN ANXIETY UNSPEC 01/26/2012 ANGELY SOUZA APRN 300.00 AN ANXIETY UNSPEC 01/26/2012 ANGELY SOUZA APRN LUIS 300.00 AN ANXIETY UNSPEC 01/26/2012 [facility], ABIEL R 300.00 AN ANXIETY UNSPEC 01/26/2012 [facility], ABIEL R 300.00 AN ANXIETY UNSPEC 01/26/2012 BIGG JETER, JEREMIE Holden 300.00 AN ANXIETY UNSPEC 01/26/2012 SUSAN BYRD MD 300.00 AN ANXIETY UNSPEC 01/26/2012 BIGG JETER, JEREMIE Holden 300.00 AN ANXIETY UNSPEC 01/26/2012 BIGG JETER, JEREMIE Holden 300.00 AN ANXIETY UNSPEC 01/26/2012 MARTINEZ TAVAREZ APRN 300.00 AN ANXIETY UNSPEC 01/26/2012 MARTINEZ TAVAREZ APRN 300.00 AN ANXIETY UNSPEC 01/26/2012 BIGG JETER, JEREMIE Holden 300.00 AN ANXIETY UNSPEC 01/26/2012 MARTINEZ TAVAREZ APRN 300.00 AN ANXIETY UNSPEC 01/26/2012 HUSSAIN NIÑO APRN S 300.00 AN ANXIETY UNSPEC 01/26/2012 MARTINEZ TAVAREZ APRN 300.00 AN ANXIETY UNSPEC 01/26/2012 BIGG JETER, JEREMIE Holden 300.00 AN ANXIETY UNSPEC 01/26/2012 HUSSAIN NIÑO APRN S 300.00 AN ANXIETY UNSPEC 01/26/2012 KELSEY NIÑO APRNA S 300.00 AN ANXIETY UNSPEC 01/26/2012 KELSEY NIÑO APRNA S 300.00 AN ANXIETY UNSPEC 01/26/2012 KELSEY NIÑO APRNA S 300.00 AN ANXIETY UNSPEC 01/26/2012 HUSSAIN NIÑO APRN S 300.00 AN ANXIETY UNSPEC 02/06/2012 Ot 780.2 02/06/2012 Ot 780.39 02/06/2012 Ot 920 02/06/2012 Ot 959.01 02/06/2012 Ot E000.8 02/06/2012 Ot E849.0 02/06/2012 Ot E888.1 02/08/2012 296.32 MAJOR DEPRESSION RECURRENT MODERATE 02/08/2012 296.32 MAJOR DEPRESSION RECURRENT MODERATE [facility]2012 [facility] 296.32 MAJOR DEPRESSION RECURRENT MODERATE 02/08/2012 [facility], ABIEL R 296.32 MAJOR DEPRESSION RECURRENT MODERATE 02/08/2012 [facility], ABIEL Amin 296.32 MAJOR DEPRESSION RECURRENT MODERATE 02/08/2012 LIBBY HOUSTON ANGELY GIBBSH 296.32 MAJOR DEPRESSION RECURRENT MODERATE 02/08/2012 LIBBY [place] ANGELY SMITH 296.32 MAJOR DEPRESSION RECURRENT MODERATE 02/08/2012 [facility], ABIEL R 296.32 MAJOR DEPRESSION RECURRENT MODERATE 02/08/2012 [facility], ABIEL R 296.32 MAJOR DEPRESSION RECURRENT MODERATE 02/08/2012 JEREMIE PRIDE PHD 296.32 MAJOR DEPRESSION RECURRENT MODERATE 02/08/2012 SUSAN BYRD MD 296.32 MAJOR DEPRESSION RECURRENT MODERATE 02/08/2012 JEREMIE PRIDE PHD 296.32 MAJOR DEPRESSION RECURRENT MODERATE 02/08/2012 JEREMIE PRIDE PHD 296.32 MAJOR DEPRESSION RECURRENT MODERATE 02/08/2012 MARTINEZ TAVAREZ APRN 296.32 MAJOR DEPRESSION RECURRENT MODERATE 02/08/2012 MARTINEZ TAVAREZ APRN 296.32 MAJOR DEPRESSION RECURRENT MODERATE 02/08/2012 JEREMIE PRIDE PHD 296.32 MAJOR DEPRESSION RECURRENT MODERATE 02/08/2012 MARTINEZ TAVAREZ APRN 296.32 MAJOR DEPRESSION RECURRENT MODERATE 02/08/2012 MARINA NIÑO APRNNDA S 296.32 MAJOR DEPRESSION RECURRENT MODERATE 02/08/2012 GRECIA TAVAREZ APRNETTE 296.32 MAJOR DEPRESSION RECURRENT MODERATE 02/08/2012 JEREMIE PRIDE PHD 296.32 MAJOR DEPRESSION RECURRENT MODERATE 02/08/2012 MARINA NIÑO APRNNDA S 296.32 MAJOR DEPRESSION RECURRENT MODERATE 02/08/2012 MARINA NIÑO APRNNDA S 296.32 MAJOR DEPRESSION RECURRENT MODERATE 02/08/2012 MARINA NIÑO APRNNDA S 296.32 MAJOR DEPRESSION RECURRENT MODERATE 02/08/2012 MARINA NIÑO APRNNDA S 296.32 MAJOR DEPRESSION RECURRENT MODERATE 02/08/2012 MARINA NIÑO APRNNDA S 296.32 MAJOR DEPRESSION RECURRENT MODERATE 05/18/2012 790.29 HYPERGLYCEMIA 05/18/2012 790.29 HYPERGLYCEMIA 05/18/2012 [facility], ABIEL R 790.29 HYPERGLYCEMIA 05/18/2012 [facility], ABILE R 790.29 HYPERGLYCEMIA 05/18/2012 [facility], ABIEL R 790.29 HYPERGLYCEMIA 05/18/2012 [facility] ANGELY LUIS 790.29 HYPERGLYCEMIA 05/18/2012 SOUZA APRN, ANGELY LUIS 790.29 HYPERGLYCEMIA 05/18/2012 [facility], ABIEL R 790.29 HYPERGLYCEMIA 05/18/2012 [facility], ABIEL R 790.29 HYPERGLYCEMIA 05/18/2012 [facility] PHD, JEREMIE Holden 790.29 HYPERGLYCEMIA 05/18/2012 SUSAN BYRD MD 790.29 HYPERGLYCEMIA 05/18/2012 [facility] PHD, JEREMIE Holden 790.29 HYPERGLYCEMIA 05/18/2012 [facility] PHD, JEREMIE Holden 790.29 HYPERGLYCEMIA 05/18/2012 [employer], MARTINEZ 790.29 HYPERGLYCEMIA 05/18/2012 [employer]PER[employer], MARTINEZ 790.29 HYPERGLYCEMIA 05/18/2012 [facility] PHD, JEREMIE Holden 790.29 HYPERGLYCEMIA 05/18/2012 [employer]PER[employer], MARTINEZ 790.29 HYPERGLYCEMIA 05/18/2012 RENA[employer] DES[employer] SUPERVISOR, HUSSAIN S 790.29 HYPERGLYCEMIA 05/18/2012 [employer]PER[employer], MARTINEZ 790.29 HYPERGLYCEMIA 05/18/2012 [facility] JETER, JEREMIE Holden 790.29 HYPERGLYCEMIA 05/18/2012 RENAY DESIGN SUPERVISOR, HUSSAIN S 790.29 HYPERGLYCEMIA 05/18/2012 RENAY DESIGN SUPERVISOR, HUSSAIN S 790.29 HYPERGLYCEMIA 05/18/2012 RENAY DESIGN SUPERVISOR, HUSSAIN S 790.29 HYPERGLYCEMIA 05/18/2012 RENAY DESIGN SUPERVISOR, HUSSAIN S 790.29 HYPERGLYCEMIA 05/18/2012 RENAY DESIGN SUPERVISOR, HUSSAIN S 790.29 HYPERGLYCEMIA 06/07/2012 723.1 neck pain 06/07/2012 788.1 pain during urination (dysuria) 06/07/2012 723.1 neck pain 06/07/2012 788.1 pain during urination (dysuria) 06/07/2012 [facility], ABIEL R 723.1 neck pain 06/07/2012 [facility], ABIEL R 788.1 pain during urination (dysuria) 06/07/2012 [facility], ABIEL R 723.1 neck pain 06/07/2012 [facility], ABIEL R 788.1 pain during urination (dysuria) 06/07/2012 [facility], ABIEL R 723.1 neck pain 06/07/2012 [facility], ABIEL R 788.1 pain during urination (dysuria) 06/07/2012 [facility] ANGELY SMITH 723.1 neck pain 06/07/2012 [facility] ANGELY SMITH 788.1 pain during urination (dysuria) 06/07/2012 [facility], ABIEL R 723.1 neck pain 06/07/2012 [facility], ABIEL R 788.1 pain during urination (dysuria) 06/07/2012 [facility], ABIEL R 723.1 neck pain 06/07/2012 [facility], ABIEL R 788.1 pain during urination (dysuria) 06/07/2012 JEREMIE PRIDE PHD 723.1 neck pain 06/07/2012 JEREMIE PRIDE PHD 788.1 pain during urination (dysuria) 06/07/2012 SUSAN BYRD MD 723.1 neck pain 06/07/2012 SUSAN BYRD MD 788.1 pain during urination (dysuria) 06/07/2012 JEREMIE PRIDE PHD 723.1 neck pain 06/07/2012 JEREMIE PRIDE PHD 788.1 pain during urination (dysuria) 06/07/2012 JEREMIE PRIDE PHD 723.1 neck pain 06/07/2012 JEREMIE PRIDE PHD 788.1 pain during urination (dysuria) 06/07/2012 [facility] MARTINEZ 723.1 neck pain 06/07/2012 [facility], MARTINEZ 788.1 pain during urination (dysuria) 06/07/2012 [facility] MARTINEZ 723.1 neck pain 06/07/2012 [facility] MARTINEZ 788.1 pain during urination (dysuria) 06/07/2012 JEREMIE PRIDE PHD 723.1 neck pain 06/07/2012 JEREMIE PRIDE PHD 788.1 pain during urination (dysuria) 06/07/2012 [facility], MARTINEZ 723.1 neck pain 06/07/2012 [facility], MARTINEZ 788.1 pain during urination (dysuria) 06/07/2012 KELSEY NIÑO APRNA S 723.1 neck pain 06/07/2012 KELSEY NIÑO APRNA S 788.1 pain during urination (dysuria) 06/07/2012 [facility], MARTINEZ 723.1 neck pain 06/07/2012 [employer]PER[employer], MARTINEZ 788.1 pain during urination (dysuria) 06/07/2012 JEREMIE PRIDE PHD 723.1 neck pain 06/07/2012 JEREMIE PRIDE PHD 788.1 pain during urination (dysuria) 06/07/2012 RENAY DESIGN SUPERVISOR, HUSSAIN S 723.1 neck pain 06/07/2012 RENAY DESIGN SUPERVISOR, HUSSAIN S 788.1 pain during urination (dysuria) 06/07/2012 RENAY DESIGN SUPERVISOR, HUSSAIN S 723.1 neck pain 06/07/2012 RENAY DESIGN SUPERVISOR, HUSSAIN S 788.1 pain during urination (dysuria) 06/07/2012 RENAY DESIGN SUPERVISOR, HUSSAIN S 723.1 NECK PAIN 06/07/2012 RENAY DESIGN SUPERVISOR, HUSSAIN S 788.1 PAIN DURING URINATION (DYSURIA) 06/07/2012 RENAY DESIGN SUPERVISOR, HUSSAIN S 723.1 NECK PAIN 06/07/2012 RENAY DESIGN SUPERVISOR, HUSSAIN S 788.1 PAIN DURING URINATION (DYSURIA) 06/07/2012 RENAY DESIGN SUPERVISOR, HUSSAIN S 723.1 NECK PAIN 06/07/2012 RENAY DESIGN SUPERVISOR, HUSSAIN S 788.1 PAIN DURING URINATION (DYSURIA) 09/04/2012 ANGELY SOUZA APRN 345.00 GENERALIZED NONCONVULSIVE EPILEPSY WITHOUT INTRACTABLE EPILEPSY 09/04/2012 [facility], ABIEL R 345.00 GENERALIZED NONCONVULSIVE EPILEPSY WITHOUT INTRACTABLE EPILEPSY 09/04/2012 [facility], ABIEL R 345.00 GENERALIZED NONCONVULSIVE EPILEPSY WITHOUT INTRACTABLE EPILEPSY 09/04/2012 JEREMIE PRIDE PHD 345.00 GENERALIZED NONCONVULSIVE EPILEPSY WITHOUT INTRACTABLE EPILEPSY 09/04/2012 SUSAN BYRD MD 345.00 GENERALIZED NONCONVULSIVE EPILEPSY WITHOUT INTRACTABLE EPILEPSY 09/04/2012 JEREMIE PRIDE PHD 345.00 GENERALIZED NONCONVULSIVE EPILEPSY WITHOUT INTRACTABLE EPILEPSY 09/04/2012 JEREMIE PRIDE PHD 345.00 GENERALIZED NONCONVULSIVE EPILEPSY WITHOUT INTRACTABLE EPILEPSY 09/04/2012 MARTINEZ TAVAREZ APRN 345.00 GENERALIZED NONCONVULSIVE EPILEPSY WITHOUT INTRACTABLE EPILEPSY 09/04/2012 DAYSI HOUSTON, MARTINEZ 345.00 GENERALIZED NONCONVULSIVE EPILEPSY WITHOUT INTRACTABLE EPILEPSY 09/04/2012 BIGG JETER, JEREMIE Holden 345.00 GENERALIZED NONCONVULSIVE EPILEPSY WITHOUT INTRACTABLE EPILEPSY 09/04/2012 DAYSI HOUSTON, MARTINEZ 345.00 GENERALIZED NONCONVULSIVE EPILEPSY WITHOUT INTRACTABLE EPILEPSY 09/04/2012 RENAY HOUSTON, HUSSAIN S 345.00 GENERALIZED NONCONVULSIVE EPILEPSY WITHOUT INTRACTABLE EPILEPSY 09/04/2012 DAYSI HOUSTON, MARTINEZ 345.00 GENERALIZED NONCONVULSIVE EPILEPSY WITHOUT INTRACTABLE EPILEPSY 09/04/2012 BIGG JETER, JEREMIE Holden 345.00 GENERALIZED NONCONVULSIVE EPILEPSY WITHOUT INTRACTABLE EPILEPSY 09/04/2012 RENAY HOUSTON, HUSSAIN S 345.00 GENERALIZED NONCONVULSIVE EPILEPSY WITHOUT INTRACTABLE EPILEPSY 09/04/2012 RENAY HOUSTON, HUSSAIN S 345.00 GENERALIZED NONCONVULSIVE EPILEPSY WITHOUT INTRACTABLE EPILEPSY 09/04/2012 RENAY HOUSTON, HUSSAIN S 345.00 GENERALIZED NONCONVULSIVE EPILEPSY WITHOUT INTRACTABLE EPILEPSY 09/04/2012 RENAY HOUSTON, HUSSAIN S 345.00 GENERALIZED NONCONVULSIVE EPILEPSY WITHOUT INTRACTABLE EPILEPSY 09/04/2012 RENAY HOUSTON, HUSSAIN S 345.00 GENERALIZED NONCONVULSIVE EPILEPSY WITHOUT INTRACTABLE EPILEPSY 09/12/2012 Ot 780.39 OTHER CONVULSIONS 09/12/2012 Ot 780.97 ALTERED MENTAL STATUS 09/14/2012 LIBBY HOUSTON ANGELY SMITH V58.69 MEDICATION HIGH RISK 09/14/2012 [facility], ABIEL R V58.69 MEDICATION HIGH RISK 09/14/2012 [facility], ABIEL R V58.69 MEDICATION HIGH RISK 09/14/2012 BIGG PHD, JEREMIE Holden V58.69 MEDICATION HIGH RISK 09/14/2012 SUSAN BYRD MD V58.69 MEDICATION HIGH RISK 09/14/2012 BIGG PHD, JEREMIE Holden V58.69 MEDICATION HIGH RISK 09/14/2012 BIGG PHD, JEREMIE Holden V58.69 MEDICATION HIGH RISK 09/14/2012 MARTINEZ TAVAREZ APRN V58.69 MEDICATION HIGH RISK 09/14/2012 MARTINEZ TAVAREZ APRN V58.69 MEDICATION HIGH RISK 09/14/2012 BIGG JETER, JEREMIE Holden V58.69 MEDICATION HIGH RISK 09/14/2012 DAYSI DESIGN SUPERVISOR, MARTINEZ V58.69 MEDICATION HIGH RISK 09/14/2012 RENAY DESIGN SUPERVISOR, HUSSAIN S V58.69 MEDICATION HIGH RISK 09/14/2012 DAYSI DESIGN SUPERVISOR, MARTINEZ V58.69 MEDICATION HIGH RISK 09/14/2012 BIGG PHD, JEREMIE Holden V58.69 MEDICATION HIGH RISK 09/14/2012 RENAY DESIGN SUPERVISOR, HUSSAIN S V58.69 MEDICATION HIGH RISK 09/14/2012 RENAY DESIGN SUPERVISOR, HUSSAIN S V58.69 MEDICATION HIGH RISK 09/14/2012 RENAY DESIGN SUPERVISOR, HUSSAIN S V58.69 MEDICATION HIGH RISK 09/14/2012 RENAY DESIGN SUPERVISOR, HUSSAIN S V58.69 MEDICATION HIGH RISK 09/14/2012 RENAY DESIGN SUPERVISOR, HUSSAIN S V58.69 MEDICATION HIGH RISK 10/10/2012 [facility], ABIEL R 301.83 PD BORDERLINE 10/10/2012 [facility], ABIEL R 301.83 PD BORDERLINE 10/10/2012 BIGG PHD, JEREMIE Holden 301.83 PD BORDERLINE 10/10/2012 SUSAN BYRD MD 301.83 PD BORDERLINE 10/10/2012 BIGG PHD, JEREMIE Holden 301.83 PD BORDERLINE 10/10/2012 BIGG PHD, JEREMIE Holden 301.83 PD BORDERLINE 10/10/2012 DAYSI DESIGN SUPERVISOR, MARTINEZ 301.83 PD BORDERLINE 10/10/2012 DAYSI DESIGN SUPERVISOR, MARTINEZ 301.83 PD BORDERLINE 10/10/2012 BIGG PHD, JEREMIE Holden 301.83 PD BORDERLINE 10/10/2012 DAYSI DESIGN SUPERVISOR, MARTINEZ 301.83 PD BORDERLINE 10/10/2012 RENAY DESIGN SUPERVISOR, HUSSAIN S 301.83 PD BORDERLINE 10/10/2012 DAYSI DESIGN SUPERVISOR, MARTINEZ 301.83 PD BORDERLINE 10/10/2012 BIGG PHD, JEREMIE Holden 301.83 PD BORDERLINE 10/10/2012 RENAY DESIGN SUPERVISOR, HUSSAIN S 301.83 PD BORDERLINE 10/10/2012 RENAY DESIGN SUPERVISOR, HUSSAIN S 301.83 PD BORDERLINE 10/10/2012 RENAY DESIGN SUPERVISOR, HUSSAIN S 301.83 PD BORDERLINE 10/10/2012 RENAY DESIGN SUPERVISOR, HUSSAIN S 301.83 PD BORDERLINE 10/10/2012 RENAY DESIGN SUPERVISOR, HUSSAIN S 301.83 PD BORDERLINE 09/26/2013 BIGG JETER, JEREMIE Holden 303.90 ALCOHOLISM 09/26/2013 BIGG JETER, JEREMIE Holden 304.10 SEDATIVE DEPENDENCE 09/26/2013 SUSAN BYRD MD 303.90 ALCOHOLISM 09/26/2013 SUSAN BYRD MD 304.10 SEDATIVE DEPENDENCE 09/26/2013 BIGG JETER, JEREMIE Holden 303.90 ALCOHOLISM 09/26/2013 BIGG JETER, JEREMIE Holden 304.10 SEDATIVE DEPENDENCE 09/26/2013 BIGG JETER, JEREMIE Holden 303.90 ALCOHOLISM 09/26/2013 BIGG JETER, JEREMIE Holden 304.10 SEDATIVE DEPENDENCE 09/26/2013 DAYSI DESIGN SUPERVISOR, MARTINEZ 303.90 ALCOHOLISM 09/26/2013 DAYSI DESIGN SUPERVISOR, MARTINEZ 304.10 SEDATIVE DEPENDENCE 09/26/2013 DAYSI DESIGN SUPERVISOR, MARTINEZ 303.90 ALCOHOLISM 09/26/2013 DAYSI DESIGN SUPERVISOR, MARTINEZ 304.10 SEDATIVE DEPENDENCE 09/26/2013 BIGG JETER, JEREMIE Holden 303.90 ALCOHOLISM 09/26/2013 BIGG JETER, JEREMIE Holden 304.10 SEDATIVE DEPENDENCE 09/26/2013 DAYSI DESIGN SUPERVISOR, MARTINEZ 303.90 ALCOHOLISM 09/26/2013 DAYSI DESIGN SUPERVISOR, MARTINEZ 304.10 SEDATIVE DEPENDENCE 09/26/2013 RENAY DESIGN SUPERVISOR, HUSSAIN S 303.90 ALCOHOLISM 09/26/2013 RENAY DESIGN SUPERVISOR, HUSSAIN S 304.10 SEDATIVE DEPENDENCE 09/26/2013 DAYSI DESIGN SUPERVISOR, MARTINEZ 303.90 ALCOHOLISM 09/26/2013 DAYSI DESIGN SUPERVISOR, MARTINEZ 304.10 SEDATIVE DEPENDENCE 09/26/2013 BIGG JETER, JEREMIE Holden 303.90 ALCOHOLISM 09/26/2013 BIGG JETER, JEREMIE Holden 304.10 SEDATIVE DEPENDENCE 09/26/2013 RENAY DESIGN SUPERVISOR, HUSSAIN S 303.90 ALCOHOLISM 09/26/2013 RENAY DESIGN SUPERVISOR, HUSSAIN S 304.10 SEDATIVE DEPENDENCE 09/26/2013 RENAY DESIGN SUPERVISOR, HUSSAIN S 303.90 ALCOHOLISM 09/26/2013 RENAY DESIGN SUPERVISOR, HUSSAIN S 304.10 SEDATIVE DEPENDENCE 09/26/2013 RENAY DESIGN SUPERVISOR, HUSSAIN S 303.90 ALCOHOLISM 09/26/2013 RENAY DESIGN SUPERVISOR, HUSSAIN S 304.10 SEDATIVE DEPENDENCE 09/26/2013 RENAY DESIGN SUPERVISOR, HUSSAIN S 303.90 ALCOHOLISM 09/26/2013 RENAY DESIGN SUPERVISOR, HUSSAIN S 304.10 SEDATIVE DEPENDENCE 09/26/2013 RENAY HOUSTON, HUSSAIN S 303.90 ALCOHOLISM 09/26/2013 RENAY HOUSTON, HUSSAIN S 304.10 SEDATIVE DEPENDENCE 10/01/2013 BIGG PHD, JEREMIE Holden 304.80 SA POLYSUB DEP 10/06/2013 MIKEL GORE DESIGN SUPERVISOR Ot 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, HYPNOTIC OR ANXIOLYTIC ABUSE, 10/06/2013 MIKEL GORE DESIGN SUPERVISOR Ot 787.91 DIARRHEA 11/12/2013 DAYSI HOUSTON, MARTINEZ 704.00 ALOPECIA UNSPECIFIED 11/12/2013 DAYSI DESIGN SUPERVISOR, MARTINEZ V70.0 EXAM - ROUTINE H&P 11/12/2013 BIGG PHD, JEREMIE Holden 704.00 ALOPECIA UNSPECIFIED 11/12/2013 BIGG PHD, JEREMIE Holden V70.0 EXAM - ROUTINE H&P 11/12/2013 DAYSI HOUSTON, MARTINEZ 704.00 ALOPECIA UNSPECIFIED 11/12/2013 DAYSI HOUSTON, MARTINEZ V70.0 EXAM - ROUTINE H&P 11/12/2013 RENAY HOUSTON, HUSSAIN S 704.00 ALOPECIA UNSPECIFIED 11/12/2013 RENAY EDWARDSN, HUSSAIN S V70.0 EXAM - ROUTINE H&P 11/12/2013 DAYSI HOUSTON, MARTINEZ 704.00 ALOPECIA UNSPECIFIED 11/12/2013 DAYSI HOUSTON, MARTINEZ V70.0 EXAM - ROUTINE H&P 11/12/2013 BIGG PHD, JEREMIE Holden 704.00 ALOPECIA UNSPECIFIED 11/12/2013 BIGG PHD, JEREMIE Hloden V70.0 EXAM - ROUTINE H&P 11/12/2013 RENAY EDWARDSN, HUSSAIN S 704.00 ALOPECIA UNSPECIFIED 11/12/2013 RENAY DESIGN SUPERVISOR, HUSSAIN S V70.0 EXAM - ROUTINE H&P 11/12/2013 RENAY DESIGN SUPERVISOR, HUSSAIN S 704.00 ALOPECIA UNSPECIFIED 11/12/2013 RENAY DESIGN SUPERVISOR, HUSSAIN S V70.0 EXAM - ROUTINE H&P 11/12/2013 RENAY DESIGN SUPERVISOR, HUSSAIN S 704.00 ALOPECIA UNSPECIFIED 11/12/2013 RENAY EDWARDSN, HUSSAIN S V70.0 EXAM - ROUTINE H&P 11/12/2013 MARINA NIÑO APRNNDA S 704.00 ALOPECIA UNSPECIFIED 11/12/2013 MARINA NIÑO APRNNDA S V70.0 EXAM - ROUTINE H&P 11/12/2013 MARINA NIÑO APRNNDA S 704.00 ALOPECIA UNSPECIFIED 11/12/2013 RENAY HOUSTON HUSSAIN S V70.0 EXAM - ROUTINE H&P 12/11/2013 MARTINEZ TAVAREZ APRN 296.35 MO DEPRESSIVE RECURRENT IN PART OR UNSPECIFIED REMISSION 12/11/2013 MARINA NIÑO APRNNDA S 296.35 MO DEPRESSIVE RECURRENT IN PART OR UNSPECIFIED REMISSION 12/11/2013 MARTINEZ TAVAREZ APRN 296.35 MO DEPRESSIVE RECURRENT IN PART OR UNSPECIFIED REMISSION 12/11/2013 BIGG PHD, JEREMIE Holden 296.35 MO DEPRESSIVE RECURRENT IN PART OR UNSPECIFIED REMISSION 12/11/2013 MARINA NIÑO APRNNDA S 296.35 MO DEPRESSIVE RECURRENT IN PART OR UNSPECIFIED REMISSION 12/11/2013 MARINA NIÑO APRNNDA S 296.35 MO DEPRESSIVE RECURRENT IN PART OR UNSPECIFIED REMISSION 12/11/2013 MARINA NIÑO APRNNDA S 296.35 MO DEPRESSIVE RECURRENT IN PART OR UNSPECIFIED REMISSION 12/11/2013 MARINA NIÑO APRNNDA S 296.35 MO DEPRESSIVE RECURRENT IN PART OR UNSPECIFIED REMISSION 12/11/2013 RENAY HOUSTON HUSSAIN S 296.35 MO DEPRESSIVE RECURRENT IN PART OR UNSPECIFIED REMISSION 12/16/2013 PAULA GUSMAN, RONA L Ot 783.21 LOSS OF WEIGHT 12/16/2013 PAULA GUSMAN, RONA L Ot 787.91 DIARRHEA 12/16/2013 PAULA GUSMAN, RONA L Ot 789.00 ABDOMINAL PAIN, UNSPECIFIED SITE 12/25/2013 MARINA NIÑO APRNNDA S 345.90 SEIZURE DISORDER 12/25/2013 MARTINEZ TAVAREZ APRN 345.90 SEIZURE DISORDER 12/25/2013 BIGG JETER, JEREMIE Holden 345.90 SEIZURE DISORDER 12/25/2013 MARINA NIÑO APRNNDA S 345.90 SEIZURE DISORDER 12/25/2013 MARINA NIÑO APRNNDA S 345.90 SEIZURE DISORDER 12/25/2013 MARINA NIÑO APRNNDA S 345.90 SEIZURE DISORDER 12/25/2013 RENAY EDWARDSN, HUSSAIN S 345.90 SEIZURE DISORDER 12/25/2013 RENAY HOUSTON, HUSSAIN S 345.90 SEIZURE DISORDER 01/05/2014 DAYSI HOUSTON MARTINEZ 305.90 DRUG ABUSE - UNSPECIFIED 01/05/2014 BIGG PHD, JEREMIE Holden 305.90 DRUG ABUSE - UNSPECIFIED 01/05/2014 RENAY DESIGN SUPERVISOR, HUSSAIN S 305.90 DRUG ABUSE - UNSPECIFIED 01/05/2014 RENAY DESIGN SUPERVISOR, HUSSAIN S 305.90 DRUG ABUSE - UNSPECIFIED 01/05/2014 RENAY DESIGN SUPERVISOR, HUSSAIN S 305.90 DRUG ABUSE - UNSPECIFIED 01/05/2014 RENAY DESIGN SUPERVISOR, HUSSAIN S 305.90 DRUG ABUSE - UNSPECIFIED 01/05/2014 RENAY EDWARDSN, HUSSAIN S 305.90 DRUG ABUSE - UNSPECIFIED 03/07/2014 BIGG PHD, JEREMIE D 244.9 HYPOTHYROIDISM 03/07/2014 RENAY HOUSTON, HUSSAIN S 244.9 HYPOTHYROIDISM 03/07/2014 RENAY EDWARDSN, HUSSAIN S 244.9 HYPOTHYROIDISM 03/07/2014 RENAY DESIGN SUPERVISOR, HUSSAIN S 244.9 HYPOTHYROIDISM 03/07/2014 RENAY DESIGN SUPERVISOR, HUSSAIN S 244.9 HYPOTHYROIDISM 03/07/2014 RENAY EDWARDSN, HUSSAIN S 244.9 HYPOTHYROIDISM 06/10/2014 RENAY HOUSTON, HUSSAIN S V04.81 FLU SHOT 06/10/2014 RENAY HOUSTON, HUSSAIN S V04.81 FLU SHOT 06/10/2014 RENAY HOUSTON, HUSSAIN S V04.81 FLU SHOT 06/10/2014 RENAY EDWARDSN, HUSSAIN S V04.81 FLU SHOT 07/29/2014 RENAY HOUSTON, HUSSAIN S 564.1 IRRITABLE BOWEL SYNDROME 07/29/2014 MARINA NIÑO APRNNDA S 787.01 NAUSEA WITH VOMITING 07/29/2014 RENAY HOUSTON, HUSSAIN S 789.07 ABDOMINAL PAIN GENERALIZED 07/29/2014 MARINA NIÑO APRNNDA S V15.82 NICOTINE ABUSE 07/29/2014 MARINA NIÑO APRNNDA S 564.1 IRRITABLE BOWEL SYNDROME 07/29/2014 KELSEY NIÑO APRNA S 787.01 NAUSEA WITH VOMITING 07/29/2014 KELSEY NIÑO APRNA S 789.07 ABDOMINAL PAIN GENERALIZED 07/29/2014 MARINA NIÑO APRNNDA S V15.82 NICOTINE ABUSE 07/29/2014 MARINA NIÑO APRNNDA S 564.1 IRRITABLE BOWEL SYNDROME 07/29/2014 MARINA NIÑO APRNNDA S 787.01 NAUSEA WITH VOMITING 07/29/2014 MARINA NIÑO APRNNDA S 789.07 ABDOMINAL PAIN GENERALIZED 07/29/2014 MARINA NIÑO APRNNDA S V15.82 NICOTINE ABUSE 09/19/2014 KELSEY NIÑO APRNA S 578.1 BLOOD IN STOOL 09/19/2014 RENAYKELSEY SANTANA APRNA S 578.1 BLOOD IN STOOL 09/20/2014 Ot 558.9 NONINF GASTROENTERIT NEC 10/04/2014 MUSA CASPER DO Ot 535.50 UNSP GASTRITIS GASTRODUODENITIS W/O ME 10/04/2014 MUSA CASPER DO Ot 578.1 BLOOD IN STOOL 10/04/2014 MUSA CASPER DO Ot 787.91 DIARRHEA 10/11/2014 Ot 478.19 10/11/2014 Ot 780.09 10/11/2014 Ot 710.0 10/11/2014 Ot 780.39 10/11/2014 Ot 710.0 10/11/2014 Ot 780.39 10/11/2014 PAULA GUSMAN, RONA Cabral Ot 345.90 10/11/2014 PAULA GUSMAN, RONA Cabral Ot V58.69 10/11/2014 PAULA GUSMAN, RONA Cabral Ot 345.90 10/11/2014 PAULA GUSMAN, RONA Cabral Ot V58.69 10/11/2014 PAULA GUSMAN, RONA Cabral Ot V58.83 10/11/2014 PAULA GUSMAN, RONA Cabral Ot 787.91 10/11/2014 PAULA GUSMAN, RONA Cabral Ot 789.00 10/11/2014 PAULA GUSMAN, RONA Cabral Ot 787.91 10/11/2014 PAULA GUSMAN, RONA Cabral Ot 789.00 10/11/2014 PAULA GUSMAN, RONA Cabral Ot 345.90 10/11/2014 PAULA GUSMAN, RONA L Ot V58.69 10/11/2014 PAULA GUSMAN, RONA L Ot V58.83 10/11/2014 PAULA GUSMAN, RONA L Ot 345.90 10/11/2014 PAULA GUSMAN, RONA L Ot V58.69 10/11/2014 Ot 710.0 10/11/2014 Ot 780.39 10/11/2014 Ot 710.0 10/11/2014 Ot 780.39 10/11/2014 Ot 710.0 10/11/2014 Ot 780.39 10/11/2014 Ot 710.0 10/11/2014 Ot 780.39 10/23/2014 PAULA GUSMAN, RONA L Ot 345.90 10/23/2014 PAULA GUSMAN, RONA L Ot V58.69 10/23/2014 PAULA GUSMAN, RONA L Ot 345.90 10/23/2014 PAULA GUSMAN, RONA L Ot V58.69 10/23/2014 PAULA GUSMAN, RONA L Ot V58.83 10/23/2014 PAULA GUSMAN, RONA L Ot 787.91 10/23/2014 PAULA GUSMAN, RONA L Ot 789.00 10/29/2014 MUSA CASPER DO Ot V72.84 12/04/2014 PAULA GUSMAN, RONA Cabral Ot 345.90 12/04/2014 PAULA GUSMAN, RONA L Ot V58.69 12/04/2014 PAULA GUSMAN, RONA L Ot 345.90 12/04/2014 PAULA GUSMAN, RONA L Ot V58.69 12/04/2014 PAULA GUSMAN, RONA L Ot V58.83 12/04/2014 PAULA GUSMAN, ORNA L Ot 787.91 12/04/2014 PAULA GUSMAN, RONA L Ot 789.00 12/04/2014 Ot 783.21 12/04/2014 Ot 787.91 12/04/2014 Ot 789.00 12/04/2014 MUSA CASPER DO Ot V72.84 12/10/2014 PAULA GUSMAN, RONA L Ot 345.90 12/10/2014 PAULA GUSMAN, RONA L Ot V58.69 12/10/2014 PAULA GUSMAN, RONA L Ot 345.90 12/10/2014 PAULA GUSMAN, RONA L Ot V58.69 12/10/2014 PAULA GUSMAN, RONA L Ot V58.83 12/10/2014 PAULA GUSMAN, RONA L Ot 787.91 12/10/2014 PAULA GUSMAN, RONA L Ot 789.00 12/10/2014 Ot 783.21 12/10/2014 Ot 787.91 12/10/2014 Ot 789.00 12/10/2014 MUSA CASPER DO Ot V72.84 01/08/2015 PAULA GUSMAN, RONA L Ot 345.90 01/08/2015 PAULA GUSMAN, RONA L Ot V58.69 01/08/2015 PAULA GUSMAN, RONA L Ot 345.90 01/08/2015 PAULA GUSMAN, RONA L Ot V58.69 01/08/2015 PAULA GUSMAN, RONA L Ot V58.83 01/08/2015 PAULA GUSMAN, RONA L Ot 787.91 01/08/2015 PAULA GUSMAN, RONA L Ot 789.00 01/08/2015 Ot 783.21 01/08/2015 Ot 787.91 01/08/2015 Ot 789.00 01/08/2015 MUSA CASPER DO Ot V72.84 01/08/2015 PAULA GUSMAN, RONA L Ot 345.90 01/08/2015 PAULA GUSMAN, RONA L Ot V58.69 01/08/2015 PAULA GUSMAN, RONA L Ot 345.90 01/08/2015 PAULA GUSMAN, RONA L Ot V58.69 01/08/2015 PAULA GUSMAN, RONA L Ot V58.83 01/08/2015 PAULA GUSMAN, RONA L Ot 787.91 01/08/2015 PAULA GUSMAN, RONA L Ot 789.00 01/08/2015 Ot 783.21 01/08/2015 Ot 787.91 01/08/2015 Ot 789.00 01/08/2015 MUSA CASPER DO Ot V72.84 01/09/2015 PAULA GUSMAN, RONA L Ot 345.90 01/09/2015 PAULA GUSMAN, RONA L Ot V58.69 01/09/2015 PAULA GUSMAN, RONA L Ot 345.90 01/09/2015 PAULA GUSMAN, RONA L Ot V58.69 01/09/2015 PAULA GUSMAN, RONA L Ot V58.83 01/09/2015 PAULA GUSMAN, RONA Cabral Ot 787.91 01/09/2015 PAULA GUSMAN, RONA Cabral Ot 789.00 01/09/2015 Ot 783.21 01/09/2015 Ot 787.91 01/09/2015 Ot 789.00 01/09/2015 MUSA CASPER DO Ot V72.84 01/13/2015 MAIER DO ALISSA K Ot 242.90 THYROTOX NOS NO CRISIS 01/13/2015 MAIER ALISSA K Ot 250.00 DIAB ISAC WO COMPL, TYPE II OR UNSPEC TY 01/13/2015 MAIER DO ALISSA K Ot 345.90 EPILEPSY UNSPEC W/O MENTION INTRACTABLE 01/13/2015 DARRION HERNANDEZ ALISSA K Ot 558.9 NONINF GASTROENTERIT NEC 01/13/2015 DARRION HERNANDEZ ALISSA K Ot 710.0 SYST LUPUS ERYTHEMATOSIS 01/13/2015 DARRION HERNANDEZ ALISSA K Ot V15.82 HISTORY OF TOBACCO USE 01/21/2015 PAULA GUSMAN, RONA Cabral Ot 345.90 01/21/2015 PAULA GUSMAN, RONA Cabral Ot V58.69 01/21/2015 PAULA GUSMAN, RONA Cabral Ot 345.90 01/21/2015 PAULA GUSMAN, RONA Cabral Ot V58.69 01/21/2015 PAULA GUSMAN, RONA Cabral Ot V58.83 01/21/2015 PAULA GUSMAN, RONA Cabral Ot 787.91 01/21/2015 PAULA GUSMAN, RONA Cabral Ot 789.00 01/21/2015 Ot 783.21 01/21/2015 Ot 787.91 01/21/2015 Ot 789.00 01/21/2015 MUSA CASPER DO Ot V72.84 04/25/2015 KODI PEDROZA MD Ot K52.9 NONINFECTIVE GASTROENTERITIS AND COLITIS 04/25/2015 KODI PEDROZA MD Ot R11.2 NAUSEA WITH VOMITING, UNSPECIFIED 06/28/2015 KODI PEDROZA MD Ot K50.90 CROHN'S DISEASE, UNSPECIFIED, WITHOUT CO 06/28/2015 KODI PEDROZA MD Ot K76.9 LIVER DISEASE, UNSPECIFIED 06/28/2015 KODI PEDROZA MD Ot R10.9 UNSPECIFIED ABDOMINAL PAIN 06/28/2015 YOVANY GUSMAN, KODI Holden Ot R19.7 DIARRHEA, UNSPECIFIED 06/28/2015 PAULA GUSMAN, RONA L Ot 345.90 06/28/2015 PAULA GUSMAN, RONA L Ot V58.69 06/28/2015 PAULA GUSMAN, RONA L Ot 345.90 06/28/2015 PAULA GUSMAN, RONA L Ot V58.69 06/28/2015 PAULA GUSMAN, RONA L Ot V58.83 06/28/2015 PAULA GUSMAN, RONA L Ot 787.91 06/28/2015 PAULA GUSMAN, RONA L Ot 789.00 06/28/2015 Ot 783.21 06/28/2015 Ot 787.91 06/28/2015 Ot 789.00 06/28/2015 MUSA CASPER DO Ot V72.84 08/26/2015 PAULA GUSMAN, RONA L Ot 345.90 08/26/2015 PAULA GUSMAN, RONA Cabral Ot V58.69 08/26/2015 PAULA GUSMAN, RONA L Ot 345.90 08/26/2015 PAULA GUSMAN, RONA L Ot V58.69 08/26/2015 PAULA GUSMAN, RONA L Ot V58.83 08/26/2015 PAULA GUSMAN, RONA L Ot 787.91 08/26/2015 PAULA GUSMAN, RONA L Ot 789.00 08/26/2015 Ot 783.21 08/26/2015 Ot 787.91 08/26/2015 Ot 789.00 08/26/2015 MUSA CASPER DO Ot V72.84 08/26/2015 UNIQUE MARIE Ot S61.012A LACERATION W/O FB OF LEFT THUMB W/O BASIL 08/26/2015 UNIQUE MARIE Ot W45.8XXA OTH FOREIGN BODY OR OBJECT ENTERING THRO 08/26/2015 UNIQUE MARIE Ot Y99.8 OTHER EXTERNAL CAUSE STATUS 08/26/2015 PAULA GUSMAN, RONA L Ot 345.90 08/26/2015 PAULA GUSMAN, RONA Cabral Ot V58.69 08/26/2015 PAULA GUSMAN, RONA Cabral Ot 345.90 08/26/2015 PAULA GUSMAN, RONA L Ot V58.69 08/26/2015 RONA MITCHELL MD Ot V58.83 08/26/2015 RONA MITCHELL MD Ot 787.91 08/26/2015 RONA MITCHELL MD Ot 789.00 08/26/2015 Ot 783.21 08/26/2015 Ot 787.91 08/26/2015 Ot 789.00 08/26/2015 MUSA CASPER DO Ot V72.84 10/29/2015 Ot 710.0 SYST LUPUS ERYTHEMATOSIS 10/29/2015 Ot 780.39 OTHER CONVULSIONS 10/29/2015 Ot 710.0 SYST LUPUS ERYTHEMATOSIS 10/29/2015 Ot 780.39 OTHER CONVULSIONS 10/30/2015 Ot 710.0 SYST LUPUS ERYTHEMATOSIS 10/30/2015 Ot 780.39 OTHER CONVULSIONS 10/30/2015 Ot 710.0 SYST LUPUS ERYTHEMATOSIS 10/30/2015 Ot 780.39 OTHER CONVULSIONS 12/08/2015 Ot 710.0 SYST LUPUS ERYTHEMATOSIS 12/08/2015 Ot 780.39 OTHER CONVULSIONS 12/08/2015 Ot 710.0 SYST LUPUS ERYTHEMATOSIS 12/08/2015 Ot 780.39 OTHER CONVULSIONS 12/08/2015 Ot 710.0 SYST LUPUS ERYTHEMATOSIS 12/08/2015 Ot 780.39 OTHER CONVULSIONS 12/08/2015 Ot 710.0 SYST LUPUS ERYTHEMATOSIS 12/08/2015 Ot 780.39 OTHER CONVULSIONS 12/08/2015 RONA MITCHELL MD Ot 345.90 EPILEPSY UNSPEC W/O MENTION INTRACTABLE 12/08/2015 RONA MITCHELL MD Ot V58.69 OTH MED,LT,CURRENT USE 12/08/2015 RONA MITCHELL MD Ot 345.90 EPILEPSY UNSPEC W/O MENTION INTRACTABLE 12/08/2015 RONA MITCHELL MD Ot V58.69 OTH MED,LT,CURRENT USE 12/08/2015 RONA MITCHELL MD Ot V58.83 ENCOUNTER FOR THERAPEUTIC DRUG MONITORIN 12/08/2015 RONA MITCHELL MD Ot 787.91 DIARRHEA 12/08/2015 RONA MITCHELL MD Ot 789.00 ABDOMINAL PAIN, UNSPECIFIED SITE 12/08/2015 Ot 783.21 LOSS OF WEIGHT 12/08/2015 Ot 787.91 DIARRHEA 12/08/2015 Ot 789.00 ABDOMINAL PAIN, UNSPECIFIED SITE 12/08/2015 MUSA CASPER DO Ot V72.84 EXAM PRE-OPERATIVE NOS 01/23/2016 Ot 710.0 SYST LUPUS ERYTHEMATOSIS 01/23/2016 Ot 780.39 OTHER CONVULSIONS 01/23/2016 Ot 710.0 SYST LUPUS ERYTHEMATOSIS 01/23/2016 Ot 780.39 OTHER CONVULSIONS 05/08/2016 RONA MITCHELL MD Ot 345.90 EPILEPSY UNSPEC W/O MENTION INTRACTABLE 05/08/2016 RONA MITCHELL MD Ot V58.69 OTH MED,LT,CURRENT USE 05/08/2016 RONA MITCHELL MD Ot 345.90 EPILEPSY UNSPEC W/O MENTION INTRACTABLE 05/08/2016 RONA MITCHELL MD Ot V58.69 OTH MED,LT,CURRENT USE 05/08/2016 RONA MITCHELL MD Ot V58.83 ENCOUNTER FOR THERAPEUTIC DRUG MONITORIN 05/08/2016 RONA MITCHELL MD Ot 787.91 DIARRHEA 05/08/2016 RONA MITCHELL MD Ot 789.00 ABDOMINAL PAIN, UNSPECIFIED SITE 05/08/2016 Ot 783.21 LOSS OF WEIGHT 05/08/2016 Ot 787.91 DIARRHEA 05/08/2016 Ot 789.00 ABDOMINAL PAIN, UNSPECIFIED SITE 05/08/2016 MUSA CASPER DO Ot V72.84 EXAM PRE-OPERATIVE NOS 05/08/2016 ISRAEL CAGLE Ot I10 ESSENTIAL (PRIMARY) HYPERTENSION 05/08/2016 ISRAEL CAGLE Ot M25.562 PAIN IN LEFT KNEE 05/08/2016 ISRAEL CAGLE Ot 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] 05/08/2016 ISRAEL CAGLE Ot Z79.899 OTHER LONGTERM (CURRENT) DRUG THERAPY 05/08/2016 RONA MITCHELL MD Ot 345.90 EPILEPSY UNSPEC W/O MENTION INTRACTABLE 05/08/2016 RONA MITCHELL MD Ot V58.69 OTH MED,LT,CURRENT USE 05/08/2016 RONA MITCHELL MD Ot 345.90 EPILEPSY UNSPEC W/O MENTION INTRACTABLE 05/08/2016 RONA MITCHELL MD Ot V58.69 OTH MED,LT,CURRENT USE 05/08/2016 RONA MITCHELL MD Ot V58.83 ENCOUNTER FOR THERAPEUTIC DRUG MONITORIN 05/08/2016 RONA MITCHELL MD Ot 787.91 DIARRHEA 05/08/2016 RONA MITCHELL MD Ot 789.00 ABDOMINAL PAIN, UNSPECIFIED SITE 05/08/2016 Ot 783.21 LOSS OF WEIGHT 05/08/2016 Ot 787.91 DIARRHEA 05/08/2016 Ot 789.00 ABDOMINAL PAIN, UNSPECIFIED SITE 05/08/2016 MUSA CASPER DO Ot V72.84 EXAM PRE-OPERATIVE NOS 05/10/2016 ISRAEL CAGLEP Ot I10 ESSENTIAL (PRIMARY) HYPERTENSION 05/10/2016 ISRAEL CAGLEP Ot M25.562 PAIN IN LEFT KNEE 05/10/2016 ISRAEL CAGLEP Ot 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] 05/10/2016 ISRAEL CAGLEP Ot Z79.899 OTHER LONGTERM (CURRENT) DRUG THERAPY 11/16/2016 RONA MITCHELL MD Ot 345.90 EPILEPSY UNSPEC W/O MENTION INTRACTABLE 11/16/2016 RONA MITCHELL MD Ot V58.69 OTH MED,LT,CURRENT USE 11/16/2016 RONA MITCHELL MD Ot 345.90 EPILEPSY UNSPEC W/O MENTION INTRACTABLE 11/16/2016 RONA MITCHELL MD Ot V58.69 OTH MED,LT,CURRENT USE 11/16/2016 RONA MITCHELL MD Ot V58.83 ENCOUNTER FOR THERAPEUTIC DRUG MONITORIN 11/16/2016 RONA MITCHELL MD Ot 787.91 DIARRHEA 11/16/2016 RONA MITCHELL MD Ot 789.00 ABDOMINAL PAIN, UNSPECIFIED SITE 11/16/2016 Ot 783.21 LOSS OF WEIGHT 11/16/2016 Ot 787.91 DIARRHEA 11/16/2016 Ot 789.00 ABDOMINAL PAIN, UNSPECIFIED SITE 11/16/2016 MUSA CASPER DO Ot V72.84 EXAM PRE-OPERATIVE NOS 05/25/2017 RONA MITCHELL MD Ot 345.90 EPILEPSY UNSPEC W/O MENTION INTRACTABLE 05/25/2017 RONA MITCHELL MD Ot V58.69 OTH MED,LT,CURRENT USE 05/25/2017 RONA MITCHELL MD Ot 345.90 EPILEPSY UNSPEC W/O MENTION INTRACTABLE 05/25/2017 RONA MITCHELL MD Ot V58.69 OTH MED,LT,CURRENT USE 05/25/2017 RONA MITCHELL MD Ot V58.83 ENCOUNTER FOR THERAPEUTIC DRUG MONITORIN 05/25/2017 RONA MITCHELL MD L Ot 787.91 DIARRHEA 05/25/2017 RONA MITCHELL MD Ot 789.00 ABDOMINAL PAIN, UNSPECIFIED SITE 05/25/2017 Ot 783.21 LOSS OF WEIGHT 05/25/2017 Ot 787.91 DIARRHEA 05/25/2017 Ot 789.00 ABDOMINAL PAIN, UNSPECIFIED SITE 05/25/2017 MUSA CASPER DO Ot V72.84 EXAM PRE-OPERATIVE NOS 05/25/2017 LINDA SMILEY RESEARCH NEUROPSYCHOLOGIST Ot K76.0 FATTY (CHANGE OF) LIVER, NOT ELSEWHERE C 05/25/2017 LINDA SMILEY RESEARCH NEUROPSYCHOLOGIST Ot R16.0 HEPATOMEGALY, NOT ELSEWHERE CLASSIFIED 05/25/2017 LINDA SMILEY RESEARCH NEUROPSYCHOLOGIST Ot K76.0 FATTY (CHANGE OF) LIVER, NOT ELSEWHERE C 05/25/2017 LINDA SMILEY RESEARCH NEUROPSYCHOLOGIST Ot R16.0 HEPATOMEGALY, NOT ELSEWHERE CLASSIFIED 05/25/2017 RONA MITCHELL MD Ot 345.90 EPILEPSY UNSPEC W/O MENTION INTRACTABLE 05/25/2017 RONA MITCHELL MD Ot V58.69 OTH MED,LT,CURRENT USE 05/25/2017 RONA MITCHELL MD Ot 345.90 EPILEPSY UNSPEC W/O MENTION INTRACTABLE 05/25/2017 RONA MITCHELL MD Ot V58.69 OTH MED,LT,CURRENT USE 05/25/2017 RONA MITCHELL MD Ot V58.83 ENCOUNTER FOR THERAPEUTIC DRUG MONITORIN 05/25/2017 RONA MITCHELL MD Ot 787.91 DIARRHEA 05/25/2017 RONA MITCHELL MD Ot 789.00 ABDOMINAL PAIN, UNSPECIFIED SITE 05/25/2017 Ot 783.21 LOSS OF WEIGHT 05/25/2017 Ot 787.91 DIARRHEA 05/25/2017 Ot 789.00 ABDOMINAL PAIN, UNSPECIFIED SITE 05/25/2017 MUSA CASPER DO Ot V72.84 EXAM PRE-OPERATIVE NOS 05/25/2017 LINDA SMILEY RESEARCH NEUROPSYCHOLOGIST Ot K76.0 FATTY (CHANGE OF) LIVER, NOT ELSEWHERE C 05/25/2017 LINDA SMILEY RESEARCH NEUROPSYCHOLOGIST Ot R16.0 HEPATOMEGALY, NOT ELSEWHERE CLASSIFIED 06/13/2017 LINDA SMILEY RESEARCH NEUROPSYCHOLOGIST Ot K76.0 FATTY (CHANGE OF) LIVER, NOT ELSEWHERE C 06/13/2017 LINDA SMILEY RESEARCH NEUROPSYCHOLOGIST Ot R16.0 HEPATOMEGALY, NOT ELSEWHERE CLASSIFIED 06/13/2017 INDY GOEL MD Ot E04.1 NONTOXIC SINGLE THYROID NODULE 06/13/2017 MANASA GUSMAN, INDY Mckeon Ot E04.1 NONTOXIC SINGLE THYROID NODULE 06/14/2017 INDY GOEL MD Ot E04.1 NONTOXIC SINGLE THYROID NODULE 06/23/2017 PAULA GUSMAN, RONA L Ot 345.90 EPILEPSY UNSPEC W/O MENTION INTRACTABLE 06/23/2017 PAULA GUSMAN, RONA L Ot V58.69 OTH MED,LT,CURRENT USE 06/23/2017 RONA MITCHELL MD Ot 345.90 EPILEPSY UNSPEC W/O MENTION INTRACTABLE 06/23/2017 RONA MITCHELL MD L Ot V58.69 OTH MED,LT,CURRENT USE 06/23/2017 RONA MITCHELL MD L Ot V58.83 ENCOUNTER FOR THERAPEUTIC DRUG MONITORIN 06/23/2017 PAULA GUSMAN, RONA L Ot 787.91 DIARRHEA 06/23/2017 PAULA GUSMAN, RONA L Ot 789.00 ABDOMINAL PAIN, UNSPECIFIED SITE 06/23/2017 Ot 783.21 LOSS OF WEIGHT 06/23/2017 Ot 787.91 DIARRHEA 06/23/2017 Ot 789.00 ABDOMINAL PAIN, UNSPECIFIED SITE 06/23/2017 MUSA CASPER DO Ot V72.84 EXAM PRE-OPERATIVE NOS 06/23/2017 LINDA SMILEY RESEARCH NEUROPSYCHOLOGIST Ot K76.0 FATTY (CHANGE OF) LIVER, NOT ELSEWHERE C 06/23/2017 SHERICE LINDA Moni RESEARCH NEUROPSYCHOLOGIST Ot R16.0 HEPATOMEGALY, NOT ELSEWHERE CLASSIFIED 06/23/2017 INDY GOEL MD Ot E04.1 NONTOXIC SINGLE THYROID NODULE 06/23/2017 SMILEYDEVONTE PIZARRONETTE Moni RESEARCH NEUROPSYCHOLOGIST Ot K76.0 FATTY (CHANGE OF) LIVER, NOT ELSEWHERE C 06/23/2017 LINDA SMILEY RESEARCH NEUROPSYCHOLOGIST Ot R16.0 HEPATOMEGALY, NOT ELSEWHERE CLASSIFIED 06/23/2017 INDY GOEL MD Ot E04.1 NONTOXIC SINGLE THYROID NODULE 06/23/2017 MANASA GUSMAN, INDY Mckeon Ot E04.1 NONTOXIC SINGLE THYROID NODULE Procedures Code [place] [address] ROUTINE VENIPUNCTURE 05/18/2012 05825 INDIV PSYTX 45/50 MIN 05/18/2012 15755 MICRO ALBUMIN-IN HOUSE 05/18/2012 75918 UA LONG DIP 05/18/2012 65715 A1C (IN-HOUSE) 05/18/2012 08899 CBC 05/18/2012 67655 CMP 05/18/2012 44117 LIPID PANEL 05/18/2012 8499979 GFR CALC (RESULT ONLY) 05/18/2012 03348 TSH 05/19/2012 77478 UA LONG DIP 06/07/2012 26422 INDIV PSYTX 45/50 MIN 06/16/2012 97309 INDIV PSYTX 45/50 MIN 07/07/2012 02510 PSYTX PT&/FAMILY 45 MINUTES 08/03/2012 15668 PSYTX PT&/FAMILY 45 MINUTES 08/31/2012 36412 PSYCH PHARM MGMT 10/10/2012 70215 PSYTX PT&/FAMILY 45 MINUTES 10/12/2012 67044 PSYCH DIAGNOSTIC EVALUATION 09/26/2013 92804 PSYCHO TESTING 1 HR W COMP 10/01/2013 01609 PSYTX PT&/FAMILY 45 MINUTES 10/17/2013 59151 PSYTX PT&/FAMILY 45 MINUTES 11/21/2013 68333 A1C (IN-HOUSE) 12/25/2013 26041 PSYTX PT&/FAMILY 45 MINUTES 03/12/2014 66131 ROUTINE VENIPUNCTURE 05/02/2014 64207 TSH 05/02/2014 93008 VALPROIC ACID / DEPAKOTE 05/02/2014 34213 ROUTINE VENIPUNCTURE 06/10/2014 33084 VALPROIC ACID / DEPAKOTE 06/10/2014 89435 AMERITOX 06/14/2014 Results Test Result Range THYROID STIMULATING HORMONE - 05/25/17 08:49 THYROID STIMULATING HORMONE 5.76 u[iU]/mL 0.35-4.94 Serum or plasma thyroxine (T4) free measurement (mass/volume) - 05/25/17 08:49 Serum or plasma thyroxine (T4) free measurement (mass/volume) 0.75 ng/dL 0.70-1.48 Total triiodothyronine (T3) measurement - 05/25/17 08:49 Total triiodothyronine (T3) measurement 1.1 % 0.6-1.8 [id number] - 05/25/17 08:49 Thyroglobulin [mass/volume] in serum or plasma 0.13 % 0.00-0.50 Serum or plasma thyroperoxidase antibody assay (units/volume) 68.37 % 0.00-100.00 Serum or plasma troponin i.cardiac measurement (mass/volume) - 06/29/17 14:26 Serum or plasma troponin i.cardiac measurement (mass/volume) < ng/ mL <0.30 Serum or plasma troponin i.cardiac measurement (mass/volume) - 06/29/17 19:31 Serum or plasma troponin i.cardiac measurement (mass/volume) < ng/ mL <0.30 Automated blood complete blood count (hemogram) panel - 06/30/17 05:48 Blood leukocytes automated count (number/volume) 14.1 10*3/uL 4.3-11.0 Blood erythrocytes automated count (number/volume) 4.36 10*6/uL 4.35-5.85 Venous blood hemoglobin measurement (mass/volume) 12.6 g/dL 11.5-16.0 Blood hematocrit (volume fraction) 38 % 35-52 Automated erythrocyte mean corpuscular volume 86 [foz_us] 80-99 Automated erythrocyte mean corpuscular hemoglobin (mass per erythrocyte) 29 pg 25-34 Automated erythrocyte mean corpuscular hemoglobin concentration measurement ( mass/volume) 34 g/dL 32-36 Automated erythrocyte distribution width ratio 15.5 % 10.0-14.5 Automated blood platelet count (count/volume) 347 10*3/uL 130-400 Automated blood platelet mean volume measurement 9.4 [foz_us] 7.4-10.4 Comprehensive metabolic panel - 06/30/17 05:48 Serum or plasma sodium measurement (moles/volume) 139 mmol/L 135-145 Serum or plasma potassium measurement (moles/volume) 4.1 mmol/L 3.6-5.0 Serum or plasma chloride measurement (moles/volume) 103 mmol/L 98-107 Carbon dioxide 24 mmol/L 21-32 Serum or plasma anion gap determination (moles/volume) 12 mmol/L 5-14 Serum or plasma urea nitrogen measurement (mass/volume) 10 mg/dL 7-18 Serum or plasma creatinine measurement (mass/volume) 0.67 mg/dL 0.60-1.30 Serum or plasma urea nitrogen/creatinine mass ratio 15 NRG Serum or plasma creatinine measurement with calculation of estimated glomerular filtration rate > NRG Serum or plasma glucose measurement (mass/volume) 125 mg/dL 70-105 Serum or plasma calcium measurement (mass/volume) 9.1 mg/dL 8.5-10.1 Serum or plasma total bilirubin measurement (mass/volume) 0.7 mg/dL 0.1-1.0 Serum or plasma alkaline phosphatase measurement (enzymatic activity/volume) 124 U/L 40-136 Serum or plasma aspartate aminotransferase measurement (enzymatic activity/ volume) 26 U/L 5-34 Serum or plasma alanine aminotransferase measurement (enzymatic activity/volume ) 49 U/L 0-55 Serum or plasma protein measurement (mass/volume) 7.0 g/dL 6.4-8.2 Serum or plasma albumin measurement (mass/volume) 4.0 g/dL 3.2-4.5 Magnesium - 06/30/17 05:48 Magnesium 1.8 mg/dL 1.8-2.4 THYROID STIMULATING HORMONE - 06/30/17 05:48 THYROID STIMULATING HORMONE 1.56 u[iU]/mL 0.35-4.94 Encounters ACCT No. Visit Date/Time Discharge Status Pt. Type Provider Facility Loc./Unit Complaint [id number] 09/30/2014 00:00:00 09/30/2014 23:59:59 [facility] Outpatient HUSSAIN NIÑO APRN [id number] 09/19/2014 13:22:00 09/19/2014 23:59:59 [facility] Outpatient HUSSAIN NIÑO APRN [id number] 07/29/2014 14:34:00 07/29/2014 23:59:59 [facility] Outpatient HUSSAIN NIÑO APRN [id number] 06/10/2014 09:40:00 06/10/2014 23:59:59 CLS Outpatient HUSSAIN NIÑO APRN [id number] 05/02/2014 09:07:00 05/02/2014 23:59:59 [facility] Outpatient HUSSAIN NIÑO APRN [id number] 03/12/2014 13:53:00 03/12/2014 23:59:59 CLS Outpatient BIGG JETER, JEREMIE Holden [id number] 12/25/2013 13:27:00 12/25/2013 23:59:59 CLS Outpatient RENAY ROSEMARIEHUSSAIN [id number] 12/11/2013 10:00:00 12/11/2013 23:59:59 CLS Outpatient MARTINEZ TAVAREZ APRN [id number] 12/11/2013 10:00:00 12/11/2013 23:59:59 CLS Outpatient MARTINEZ TAVAREZ APRN [id number] 11/21/2013 14:52:00 11/21/2013 23:59:59 CLS Outpatient JEREMIE PRIDE PHD [id number] 10/30/2013 08:54:00 10/30/2013 23:59:59 CLS Outpatient MARTINEZ TAVAREZ APRN [id number] 10/30/2013 08:54:00 10/30/2013 23:59:59 CLS Outpatient MARTINEZ TAVAREZ APRN [id number] 10/17/2013 12:48:00 10/17/2013 23:59:59 CLS Outpatient JEREMIE PRIDE PHD [id number] 10/01/2013 12:53:00 10/01/2013 23:59:59 CLS Outpatient JEREMIE PRIDE PHD [id number] 09/27/2013 11:51:00 09/27/2013 23:59:59 CLS Outpatient SUSAN BYRD MD [id number] 09/26/2013 12:54:00 09/26/2013 23:59:59 CLS Outpatient JEREMIE PRIDE PHD [id number] 12/04/2012 00:00:00 12/04/2012 23:59:59 CLS Outpatient BIGG LSABIEL FULTON [id number] 10/10/2012 11:48:00 10/10/2012 23:59:59 CLS Outpatient BIGG LSCSABIEL [id number] 09/04/2012 15:26:00 09/04/2012 23:59:59 CLS Outpatient LIBBY HOUSTON ANGELY SMITH [id number] 08/30/2012 09:51:00 08/30/2012 23:59:59 CLS Outpatient ABIEL JUDGE [id number] 08/01/2012 11:54:00 08/01/2012 23:59:59 CLS Outpatient BIGG LSABIEL FULTON [id number] 07/07/2012 12:53:00 07/07/2012 23:59:59 CLS Outpatient ABIEL JUDGE Eloisa [id number] 06/16/2012 14:48:00 06/16/2012 23:59:59 CLS Outpatient [id number] 06/07/2012 09:33:00 06/07/2012 23:59:59 CLS Outpatient [id number] 05/08/2012 09:22:00 05/08/2012 23:59:59 CLS Outpatient ANGELY SOUZA APRN [id number] 06/22/2017 05:35:00 06/22/2017 16:32:00 DIS Outpatient INDY GOEL MD [facility] PREOP THYROID NODULES [id number] 06/01/2017 13:23:00 06/01/2017 23:59:59 CLS Outpatient INDY GOEL MD [facility] RAD RIGHT THYROID NODULE [id number] 05/25/2017 08:24:00 05/25/2017 23:59:59 CLS Outpatient INDY GOEL MD [facility] RAD HYPERTHYROIDISM [id number] 11/16/2016 07:28:00 11/16/2016 23:59:59 CLS Outpatient LINDA SMILEY [facility] RAD RUQ PAIN [id number] 05/08/2016 17:53:00 05/08/2016 19:30:00 DIS Emergency ISRAEL CAGLE [facility] ER L KNEE SWELLING/PAIN [id number] 04/30/2016 16:30:00 04/30/2016 23:59:59 CLS Outpatient FRANDY LAINEZ DO A [facility] QUICK LT KNEE PAIN [id number] 08/26/2015 13:58:00 08/26/2015 15:00:00 DIS Emergency UNIQUE MARIE [facility] ER L HAND THUMB LAC [id number] 06/28/2015 14:54:00 06/28/2015 18:11:00 DIS Emergency KODI PEDROZA MD [facility] ER STOMACH PAIN/DIARRHEA [id number] 04/25/2015 06:50:00 04/25/2015 10:49:00 DIS Emergency KODI PEDROZA MD [facility] ER COLON FLARE [id number] 01/10/2015 11:17:00 01/13/2015 11:30:00 DIS Inpatient ALISSA MAIER DO [facility] SURGICAL COLITIS [id number] 10/04/2014 12:31:00 10/04/2014 15:00:00 DIS Outpatient MUSA CASPER DO [facility] SDC RECTAL BLEEDING; COLITIS [id number] 10/03/2014 06:06:00 10/03/2014 23:59:59 CLS Outpatient MUSA CASPER DO [facility] PREOP RECTAL BLEEDING; COLITIS [id number] 09/17/2013 09:15:00 12/16/2013 00:01:00 DIS Outpatient RONA MITCHELL MD [facility] RAD ABD PAIN,DIARRHEA [id number] 10/06/2013 12:39:00 10/06/2013 14:19:00 DIS Emergency MIKEL GORE APRN [facility] ER DIARRHEA,CONFUSION [id number] 09/19/2013 10:16:00 09/19/2013 23:59:59 CLS Outpatient RONA MITCHELL MD [facility] RAD ABD PAIN, DIARRHEA [id number] 07/05/2013 13:31:00 07/05/2013 23:59:59 CLS Outpatient RONA MITCHELL MD [facility] LAB MED MONITORING [id number] 06/26/2013 19:50:00 06/26/2013 23:59:59 CLS Outpatient RONA MITCHELL MD [facility] LAB VALPROIC ACID [id number] 06/13/2013 16:23:00 06/13/2013 23:59:59 CLS Outpatient RONA MITCHELL MD [facility] LAB SEIZURE DISORDER MED MONITOR [id number] 06/29/2017 09:13:00 ACT Outpatient INDY GOEL MD [facility] 4TH THYROID NODULES [id number] 12/04/2014 11:41:00 Document Registration [id number] 10/11/2014 15:36:00 Document Registration [id number] 10/11/2014 15:36:00 Document Registration [id number] 10/11/2014 15:36:00 Document Registration [id number] 10/11/2014 15:36:00 Document Registration [id number] 10/11/2014 15:36:00 Document Registration [id number] 09/12/2012 13:24:00 Document Registration [id number] 09/01/2012 08:25:00 Document Registration [id number] 08/03/2012 08:18:00 Document Registration [id number] 05/04/2010 14:53:00 Document Registration
--- NOTE | 2017-06-30 09:55 | Progress Note-Cardiology ---
Cardiology SOAP Progress Note Subjective: In bed. Daughter at the bedside. No c/o CP, palpitations, or dyspnea. Objective: I&O/Vital Signs Vital Sign - Last 12Hours 06/30/17 06/30/17 06/30/17 06/30/17 00:00 01:00 04:00 07:00 Temp 98.4 97.7 Pulse 83 82 84 74 Resp 19 18 B/P (MAP) 118/66 (83) 109/72 (84) Pulse Ox 93 94 O2 Delivery Nasal Cannula Room Air O2 Flow Rate 2.00 06/30/17 06/30/17 08:54 10:45 Temp 98.0 Pulse 79 Resp 18 B/P (MAP) 114/72 (86) Pulse Ox 95 O2 Delivery Room Air Intake and Output 06/30/17 00:00 Intake Total 460 ml Output Total 100 ml Balance 360 ml Weight (Pounds): 195 Weight (Ounces): 0.0 Weight (Calculated Kilograms): 88.138676 Constitutional: AAO x 3, well-developed, well-nourished Respiratory: No accessory muscle use, chest expansion is symmetric, chest is bilaterally symmetric, lungs clear to auscultation Cardiovascular: regular rate-rhythm, S1 and S2 Gastrointestional: No tender, soft, audible bowel sounds Extremities: no lower extremity edema bilateral Neurologic/Psychiatric: grossly intact Skin: No rash, No ulcerations Results/Procedures: Labs Laboratory Tests 06/29/17 14:26: Troponin I < 0.30 06/29/17 19:31: Troponin I < 0.30 06/30/17 05:48: White Blood Count 14.1H, Red Blood Count 4.36, Hemoglobin 12.6, Hematocrit 38, Mean Corpuscular Volume 86, Mean Corpuscular Hemoglobin 29, Mean Corpuscular Hemoglobin Concent 34, Red Cell Distribution Width 15.5H, Platelet Count 347, Mean Platelet Volume 9.4, Sodium Level 139, Potassium Level 4.1, Chloride Level 103, Carbon Dioxide Level 24, Anion Gap 12, Blood Urea Nitrogen 10, Creatinine 0.67, Estimat Glomerular Filtration Rate > 60, BUN/Creatinine Ratio 15, Glucose Level 125H, Calcium Level 9.1, Magnesium Level 1.8, Total Bilirubin 0.7, Aspartate Amino Transf (AST/SGOT) 26, Alanine Aminotransferase (ALT/SGPT) 49, Alkaline Phosphatase 124, Total Protein 7.0, Albumin 4.0, Thyroid Stimulating Hormone (TSH) 1.56 A/P: Assessment: Reported transient abnormality of ECG during surgery (possible ST elevation lasting only a couple of seconds, per oral report, no documentation of such) No clinical evidence of ACS Echo of 06/29/27: LVEF 65-70%, no RWMA or valvular abnormality HTN S/P thyroidectomy d/t thyroid nodules by Dr. Thakur Depression Seizure disorder Family h/o premature CAD Plan: Echocardiogram results discussed EKG with no evidence of ischemia or infarct No arrhythmia seen on tele No evidence of ACS OK to discharge home from cardiac stand point with out pt f/u in 2-3 weeks Physician Assessment Physician Assessment No cp or palp or syncope or shortness of breath. Some discomfort at site of surgery Lungs: clear Cor: reg Ext: no c/c/e A&R * As documented in our note above that I updated (italics) and as noted below * Cardiac status clinically stable and no evidence of ACS * I spoke with her and answered questions * Outpatient cardiology f/u is advised RICKI KEITH Jun 30, 2017 09:55 CASPER BRYANT MD FACP [facility] Jun 30, 2017 11:30
[2017-06-30] MEDS ORDERED: INFLUENZA TRIvalent 2017-2018 0.5 ML/45 MCG SYR IM ONE (10:37)
--- NOTE | 2017-06-30 11:25 | Progress Note-Standard ---
Standard Progress Note Progress Notes/Assess & Plan Date Seen by Provider: Jun 30, 2017 Time Seen by Provider: 08:20 Progress/Assessment & Plan uneventful night. Calcium levels normal. Incision dry. Vocal cord function intact. Could be discharged home Final Diagnosis thyroid nodules INDY GOEL MD Jun 30, 2017 11:25 am
== END 2017-06-30 11:05 | disposition home or self-care (01) ==
LOC: SDC 09:13 → 4TH 13:50 → SDC 06-30 11:05
PROVIDERS: ATTEND Surgery
DX: E04.1 Nontoxic single thyroid nodule (principal); Z11.2 Encounter for screening for other bacterial diseases; Z87.891 Personal history of nicotine dependence; Z79.899 Other long term (current) drug therapy; I10 Essential (primary) hypertension; E11.9 Type 2 diabetes mellitus without complications; F32.9 Major depressive disorder, single episode, unspecified; G40.909 Epilepsy, unspecified, not intractable, without status epilepticus
CPT/HCPCS: 36415; 80053; 83735; 84443; 84484; 85027; 87081; 93005; 93306

== ENCOUNTER → 2017-10-12 | Outpatient (CLI) | payer SELFPAY ==
[~2017-10-12] MED LIST changes: +ACHD5005 PO; +LEVO100T7 PO; +LORA10TA7 PO; +VNL75T PO; +[UNRECOGNIZED DRUG - CODE] NS
== END ==
LOC: LAB 11:59
PROVIDERS: ATTEND Surgery
DX: E89.0 Postprocedural hypothyroidism (principal); E06.3 Autoimmune thyroiditis
CPT/HCPCS: 36415; 84436; 84443

== ENCOUNTER 2017-11-02 06:10 | Inpatient (IN) | payer OTHER ==
[~2017-11-02] VITALS: Ht 162.6 cm; Wt 87.2 kg
[2017-11-02] MEDS ORDERED: NS IV 1000 ML 1,000 ML IV STA (06:48)
[2017-11-02] MEDS ORDERED: HYOSCYAMINE 0.125 MG (LEVSIN) TAB SL ONE (07:00)
[2017-11-02] MEDS ORDERED: raNItidine 50 MG/2 ML INJ (ZANTAC) IJ SCH (07:00)
[2017-11-02] MEDS ORDERED: NS IV 1000 ML 1,000 ML ONE (07:13)
[2017-11-02] MEDS ORDERED: raNItidine 50 MG/2 ML INJ (ZANTAC) ONE (07:14)
[2017-11-02] MEDS ORDERED: HYOSCYAMINE 0.125 MG (LEVSIN) TAB ONE (07:15)
[2017-11-02 07:27] LABS: BASOPHILS % (AUTO) 0 % (0-10); EOSINOPHILS # (AUTO) 0.1 10^3/uL (0.0-0.3); EOSINOPHILS % (AUTO) 0 % (0-10); HEMATOCRIT 40 % (35-52); HEMOGLOBIN 13.6 G/DL (11.5-16.0); LYMPHOCYTES # (AUTO) 1.2 X 10^3 (1.0-4.0); LYMPHOCYTES % (AUTO) 9 % (12-44); MEAN CORPUSCULAR HEMOGLOBIN 29 PG (25-34); MEAN CORPUSCULAR HGB CONC 34 G/DL (32-36); MEAN CORPUSCULAR VOLUME 86 FL (80-99); MEAN PLATELET VOLUME 9.4 FL (7.4-10.4); MONOCYTES # (AUTO) 0.7 X 10^3 (0.0-1.0); MONOCYTES % (AUTO) 5 % (0-12); NEUTROPHILS # (AUTO) 11.8 X 10^3 (1.8-7.8); NEUTROPHILS % (AUTO) 85 % (42-75); PLATELET COUNT 339 10^3/uL (130-400); RED BLOOD COUNT 4.65 10^6/uL (4.35-5.85); RED CELL DISTRIBUTION WIDTH 14.6 % (10.0-14.5); WHITE BLOOD COUNT 13.8 10^3/uL (4.3-11.0)
[2017-11-02 07:39] LABS: BILIRUBIN,URINE NEGATIVE (NEGATIVE); COLOR,URINE YELLOW; GLUCOSE, URINE (UA) NEGATIVE (NEGATIVE); KETONES,URINE NEGATIVE (NEGATIVE); LEUKOCYTE ESTERASE ,URINE NEGATIVE (NEGATIVE); NITRITE,URINE NEGATIVE (NEGATIVE); PH,URINE 5 (5-9); PROTEIN,URINE 2+ (NEGATIVE); UROBILINOGEN,URINE NORMAL (NORMAL)
[2017-11-02 07:49] LABS: ALANINE AMINOTRANSFERASE 54 U/L (0-55); ALBUMIN 4.6 GM/DL (3.2-4.5); ALKALINE PHOSPHATASE 130 U/L (40-136); BILIRUBIN,TOTAL 0.8 MG/DL (0.1-1.0); BUN/CREATININE RATIO 24; CALCIUM 9.4 MG/DL (8.5-10.1); CARBON DIOXIDE 23 MMOL/L (21-32); CHLORIDE 107 MMOL/L (98-107); GFR ESTIMATED > 60; GLUCOSE 169 MG/DL (70-105); LIPASE 42 U/L (8-78); SODIUM 140 MMOL/L (135-145); TOTAL PROTEIN 7.6 GM/DL (6.4-8.2)
[2017-11-02 07:53] LABS: BACTERIA,URINE FEW /HPF; CLARITY,URINE CLEAR; WBC,URINE 0-2 /HPF
[2017-11-02] MEDS ORDERED: fentaNYL INJECTION 100 MCG/2 ML AMP IVP PRN (08:15)
[2017-11-02] MEDS ORDERED: ONDANSETRON 4 MG/2 ML (SDV) Z0FRAN IVP ONE (08:30)
--- NOTE | 2017-11-02 08:56 | ED Abdominal Pain ---
General Chief Complaint: Abdominal/GI Problems Stated Complaint: ABD PAIN Nursing Triage Note: pt to ed 7 per amb w/ c/o abd pain r/t colitis. pt reports onset last noc, pain et diarrhea. no other c/o voiced Sepsis Screen: No Definite Risk Source of Information: Patient Exam Limitations: No Limitations History of Present Illness Date Seen by Provider: Nov 02, 2017 Time Seen by Provider: 06:50 Initial Comments Here with report of abdominal pain diffusely that is associated with diarrhea and nausea. No vomiting. Reports that she's had some bloody diarrhea. States that it's actually not bloody stool but mucus that appears to be bloody. States that she has colitis and this is typically what looks like when she has a flare. Timing/Duration: 12 Hours Severity/Quality: Moderate, Severe Location: Generalized Abdomen Radiation: No Radiation Activities at Onset: None Modifying Factors: Improves With Defecating; Worsens With Eating Associated Symptoms: No Back Pain, No Fever/Chills; Nausea/Vomiting; No Shortness of Air, No Weakness Allergies and Home Medications Allergies Coded Allergies: No Known Drug Allergies (Unverified , 05/04/10) Home Medications Escitalopram Oxalate 10 Mg Tablet, 10 MG PO DAILY, (Reported) Fluticasone Propionate 9.9 Ml [place].susp, 2 SPRAYS NS DAILY PRN for CONGESTION, (Reported) Hydrocodone Bit/Acetaminophen 1 Each Tablet, 1-2 TAB PO 4-6HR PRN for PAIN Prescribed by: INDY GOEL on 06/29/17 1600 Levothyroxine Sodium 100 Mcg Tablet, 100 MCG PO DAILY Prescribed by: INDY GOEL on 06/29/17 1601 Loratadine 10 Mg Tablet, 10 MG PO DAILY, (Reported) Metoprolol Tartrate 100 Mg Tablet, 100 MG PO DAILY, (Reported) Quetiapine Fumarate 50 Mg Tablet, 50 MG PO HS, (Reported) Ranitidine HCl 150 Mg Tablet, 150 MG PO BID, (Reported) Venlafaxine HCl 75 Mg Tab, 75 MG PO BID, (Reported) Patient Home Medication List Home Medication List Reviewed: Yes Review of Systems Constitutional: see HPI, chills; No fever; weakness EENTM: No Symptoms Reported Respiratory: Denies Cough, Denies Shortness of Air Cardiovascular: Denies Chest Pain, Denies Edema Gastrointestinal: See HPI, Abdominal Pain, Diarrhea, Nausea, Rectal Bleeding Genitourinary: No Symptoms Reported Musculoskeletal: no symptoms reported All Other Systems Reviewed Negative Unless Noted: Yes Past Njluhkn-Hkaxtn-Xeunqg Hx Past Med/Social Hx: Reviewed Nursing Past Med/Soc Hx Patient Social History Alcohol Use: Denies Use Recreational Drug Use: No Smoking Status: Former Smoker Type Used: Cigarettes Former Smoker, Quit: Jun 22, 2013 Recent Foreign Travel: No Contact w/Someone Who Travel: No Recent Infectious Disease Expo: No Recent Hopitalizations: No Physical Abuse: No Sexual Abuse: No Mistreated: No Fear: No Immunizations Up To Date Tetanus Booster (TDap): Unknown Date of Influenza Vaccine: Jun 30, 2017 Seasonal Allergies Seasonal Allergies: Yes Past Medical History Surgeries: Yes Adenoidectomy, Hysterectomy, Tonsillectomy Respiratory: No Cardiac: Yes High Cholesterol, Hypertension Neurological: Yes (Last Seizure 2014) Seizure Disorder Reproductive Disorders: No Female Reproductive Disorders: Denies [employer] History: Hysterectomy Sexually Transmitted Disease: No HIV/AIDS: No Kidney Infection Gastrointestinal: Yes Colitis Musculoskeletal: No Endocrine: Yes (Thyroid Nodules) Hypothyroidsim, Lupus Loss of Vision: Bilateral Hearing Impairment: Denies Cancer: No Psychosocial: Yes Sleep Difficulties, Anxiety, Depression Nursing Suicide Risk Score: 0 Integumentary: No Eczema Blood Disorders: No Adverse Reaction/Blood Tranf: No Family Medical History Reviewed Nursing Family Hx Alcoholism 19 MOTHER Congenital heart disease G8 BROTHER Diabetes mellitus 19 FATHER Drug abuse 19 MOTHER G8 BROTHER Hypercholesterolemia 19 FATHER Hypertension 19 FATHER 19 MOTHER Kidney disease 19 FATHER Myocardial infarction 19 FATHER G8 BROTHER Neoplasm 19 FATHER (In the eye) Psychosocial problem 19 MOTHER Seizure disorder 19 MOTHER No Family History of: AIDS Abdominal aortic aneurysm Constantino's disease Alzheimer's disease Aphasia Arthritis Asthma Cancer of mouth Cardiovascular disease Cataracts Colon cancer Completed stroke Congenital disease Coronary thrombosis Cystic fibrosis Deafness or hearing loss Dementia Dysphasia Fibrocystic disease of breast Gastroenteritis Glaucoma Headache disorder Infertility Not obtainable due to adoption Osteoporosis Parkinson's disease Prostate cancer Respiratory disorder Severe allergy Thyroid disease Tuberculosis Visual disorder Asthma, Cancer, CAD Under 55 Years Old, Diabetes Physical Exam Vital Signs Vital Signs - First Documented 11/02/17 06:17 Temp 98.1 Pulse 85 Resp 20 B/P (MAP) 162/113 (129) Pulse Ox 97 O2 Delivery Room Air Capillary Refill : Less Than 3 Seconds General Appearance: WD/WN, no apparent distress HEENT: PERRL/EOMI, pharynx normal Neck: full range of motion, supple Respiratory: lungs clear, normal breath sounds Cardiovascular: regular rate, rhythm, no murmur Peripheral Pulses: 2+ Dorsalis Pedis (R), 2+ Left Dors-Pedis (L), 2+ Radial Pulses (R), 2+ Radial Pulses (L) Gastrointestinal: soft, abnormal bowel sounds (hyperactive); No guarding, No rebound; tenderness (diffuse mild) Extremities: non-tender, normal inspection Back: normal inspection, no CVA tenderness, no vertebral tenderness Neurologic/Psychiatric: alert, oriented x 3 Skin: normal color, warm/dry Progress/Results/Core Measures Lab Results Laboratory Tests Test 11/02/17 06:55 11/02/17 07:03 Range/Units Urine Color YELLOW Urine Clarity CLEAR Urine pH 5 5-9 Urine Specific [place] 1.025 H 1.016-1.022 Urine Protein 2+ H NEGATIVE Urine Glucose (UA) NEGATIVE NEGATIVE Urine Ketones NEGATIVE NEGATIVE Urine Nitrite NEGATIVE NEGATIVE Urine Bilirubin NEGATIVE NEGATIVE Urine Urobilinogen NORMAL NORMAL MG/DL Urine Leukocyte Esterase NEGATIVE NEGATIVE Urine RBC (Auto) NEGATIVE NEGATIVE Urine RBC NONE /HPF Urine WBC 0-2 /HPF Urine Squamous Epithelial Cells 2-5 /HPF Urine Crystals NONE /LPF Urine Bacteria FEW H /HPF Urine Casts NONE /LPF Urine Mucus NEGATIVE /LPF Urine Culture Indicated NO White Blood Count 13.8 H 4.3-11.0 10^3/uL Red Blood Count 4.65 4.35-5.85 10^6/uL Hemoglobin 13.6 11.5-16.0 G/DL Hematocrit 40 35-52 % Mean Corpuscular Volume 86 80-99 FL Mean Corpuscular Hemoglobin 29 25-34 PG Mean Corpuscular Hemoglobin Concent 34 32-36 G/DL Red Cell Distribution Width 14.6 H 10.0-14.5 % Platelet Count 339 130-400 10^3/uL Mean Platelet Volume 9.4 7.4-10.4 FL Neutrophils (%) (Auto) 85 H 42-75 % Lymphocytes (%) (Auto) 9 L 12-44 % Monocytes (%) (Auto) 5 0-12 % Eosinophils (%) (Auto) 0 0-10 % Basophils (%) (Auto) 0 0-10 % Neutrophils # (Auto) 11.8 H 1.8-7.8 X 10^3 Lymphocytes # (Auto) 1.2 1.0-4.0 X 10^3 Monocytes # (Auto) 0.7 0.0-1.0 X 10^3 Eosinophils # (Auto) 0.1 0.0-0.3 10^3/uL Basophils # (Auto) 0.0 0.0-0.1 10^3/uL Sodium Level 140 135-145 MMOL/L Potassium Level 4.0 3.6-5.0 MMOL/L Chloride Level 107 98-107 MMOL/L Carbon Dioxide Level 23 21-32 MMOL/L Anion Gap 10 5-14 MMOL/L Blood Urea Nitrogen 19 H 7-18 MG/DL Creatinine 0.80 0.60-1.30 MG/DL Estimat Glomerular Filtration Rate > 60 BUN/Creatinine Ratio 24 Glucose Level 169 H 70-105 MG/DL Calcium Level 9.4 8.5-10.1 MG/DL Magnesium Level 2.0 1.8-2.4 MG/DL Total Bilirubin 0.8 0.1-1.0 MG/DL Aspartate Amino Transf (AST/SGOT) 29 5-34 U/L Alanine Aminotransferase (ALT/SGPT) 54 0-55 U/L Alkaline Phosphatase 130 40-136 U/L Total Protein 7.6 6.4-8.2 GM/DL Albumin 4.6 H 3.2-4.5 GM/DL Lipase 42 8-78 U/L My Orders Orders - KODI PEDROZA MD Lipase (11/02/17 06:48) Saline Lock/Iv-Start (11/02/17 06:48) Ns Iv 1000 Ml (Sodium Chloride 0.9%) (11/02/17 06:48) Hyoscyamine Sl Tablet (Levsin Sl Tablet) (11/02/17 07:00) Saline Lock/Iv-Start (11/02/17 06:48) Ranitidine Injection (Zantac Injection) (11/02/17 07:00) Cbc With Automated Diff (11/02/17 07:20) Comprehensive Metabolic Panel (11/02/17 07:20) Magnesium (11/02/17 07:20) Urinalysis (11/02/17 07:20) Ns Iv 1000 Ml (Sodium Chloride 0.9%) (11/02/17 07:13) Ranitidine Injection (Zantac Injection) (11/02/17 07:14) Hyoscyamine Sl Tablet (Levsin Sl Tablet) (11/02/17 07:15) Fentanyl Injection (Sublimaze Injection (11/02/17 08:15) Ondansetron Injection (Zofran Injectio (11/02/17 08:30) Ct Abdomen/Pelvis W (11/02/17 08:43) Iohexol Injection (Omnipaque 350 Mg/Ml 1 (11/02/17 09:15) Ns (Ivpb) (Sodium Chloride 0.9%) (11/02/17 09:15) Hydromorphone Injection (Dilaudid Inject (11/02/17 10:55) Flagyl 500 Mg Iv (1x Dose) (11/02/17 11:15) Medications Given in ED Current Medications Medications Dose Ordered Sig/Prudencio Route Start Time Stop Time Status Last Admin Dose Admin Fentanyl Citrate 75 mcg Q1H PRN IVP 11/02/17 08:15 11/02/17 08:12 75 MCG Hyoscyamine Sulfate 0.125 mg ONCE ONCE SL 11/02/17 07:00 11/02/17 07:22 DC 11/02/17 07:25 0.125 MG Iohexol 100 ml ONCE ONCE IV 11/02/17 09:15 11/02/17 09:41 DC 11/02/17 09:20 100 ML Ondansetron HCl 4 mg ONCE ONCE IVP 11/02/17 08:30 11/02/17 08:31 DC 11/02/17 08:24 4 MG Sodium Chloride 250 ml ONCE ONCE IV 11/02/17 09:15 11/02/17 09:41 DC 11/02/17 09:20 80 ML Vital Signs/I&O 11/02/17 06:17 Temp 98.1 Pulse 85 Resp 20 B/P (MAP) 162/113 (129) Pulse Ox 97 O2 Delivery Room Air Blood Pressure Mean: 129 Progress Note : Progress Note Seen and evaluated. IV, labs, UA, normal saline 1 L bolus, Levsin 0.125 mg by mouth and ranitidine 50 mg IV. Fentanyl 75 g IV ordered. Monitor patient. 0850: Pain continues. CT abdomen pelvis with contrast ordered due to history of colitis and persistent pain. Monitor patient. 1102: CT complete. Pain continues. Dilaudid 1 mg IV ordered. I discussed the case with Dr. Spears, and she accepts patient for admission, inpatient status. We will initiate Flagyl and Cipro for the colitis although I do not have concerns about sepsis or septic shock. There are no blood cultures her lactic acid is a do not believe these will benefit the patient or change the management currently. Patient would be managed outpatient but for her pain concerns. We will continue clear liquids and IV fluids. Patient agrees with plan. Diagonstic Imaging: CT Plain Films/CT/US/NM/MRI: abdomen, pelvis Comments %(RAD)RES..mtdd.print.filter("cj")[place], [place] NAME: [facility] REC#: [id number] PT STATUS: REG ER : 1970 PHYSICIAN: KODI PEDROZA MD ADMIT DATE: 11/02/17/ER Draft Date of Exam:11/02/17 CT ABDOMEN/PELVIS W PROCEDURE: CT abdomen and pelvis with contrast. TECHNIQUE: Multiple contiguous axial images were obtained through the abdomen and pelvis after administration of intravenous contrast. INDICATION: Abdominal pain and diarrhea. Patient has history of colitis. COMPARISON: Made with prior CT from 06/28/2015. FINDINGS: The lung bases are clear. The liver demonstrates diffuse low density consistent with hepatic steatosis. There is an enhancing mass in the posterior right lobe of the liver measuring 15 mm, not definitely seen on prior exam. Previously noted enhancing lesion more inferiorly in the right lobe appears to be larger on today's study at approximately 16 mm compared with 5 mm on prior exam. In addition, enhancement pattern is not classic for typical hemangiomas. The gallbladder is unremarkable. The pancreas and spleen are unremarkable. No adrenal mass is identified. The kidneys are unremarkable. Aorta is non-aneurysmal. Small and large bowel loops appear to be normal caliber. However, there does appear to be a segment of circumferential wall thickening involving the descending colon, mid to distal aspect near the junction with the sigmoid. Mild pericolonic inflammatory stranding is present. Findings are consistent with a nonspecific colitis. No free fluid or fluid collection is seen. The bladder is unremarkable. IMPRESSION: 1. Circumferential wall thickening of the descending colon suggestive of nonspecific colitis. No free air, bowel obstruction or abscess formation is seen. 2. Hyperdense lesions within the liver, as described. One appears to be new and the second appears to be increased when compared with CT from September 2014. Etiology is indeterminate. A liver MRI would be useful for further evaluation on nonemergent basis. Dictated on workstation # [id number] Dict: 11/02/17 0940 Trans: 11/02/17 0950 [facility] [id number] Interpreted by: CLARISA FREED MD Electronically signed by: Departure Communication (Admissions) Time/Spoke to Admitting Phy: 11:02 Impression Primary Impression: Colitis Disposition: ADMITTED INPATIENT Condition: Stable Admissions Decision to Admit Reason: Admit from ER (General) Decision to Admit/Date: Nov 02, 2017 Time/Decision to Admit Time: 11:02 Departure-Patient Inst. Referrals: SUSAN BYRD MD (PCP) Primary Care Physician HUSSAIN NIÑO (Family) Primary Care Physician KODI PEDROZA MD Nov 02, 2017 08:56
[2017-11-02] MEDS ORDERED: IOHEXOL 350 MG/ML 100 ML (OMNIPAQUE 350) VIAL IV ONE (09:15)
[2017-11-02] MEDS ORDERED: NS 250 ML (IVPB) BAG IV ONE (09:15)
--- NOTE | 2017-11-02 09:51 | Diagnostic Imaging Report ---
PROCEDURE: CT abdomen and pelvis with contrast. TECHNIQUE: Multiple contiguous axial images were obtained through the abdomen and pelvis after administration of intravenous contrast. INDICATION: Abdominal pain and diarrhea. Patient has history of colitis. COMPARISON: Made with prior CT from 06/28/2015. FINDINGS: The lung bases are clear. The liver demonstrates diffuse low density consistent with hepatic steatosis. There is an enhancing mass in the posterior right lobe of the liver measuring 15 mm, not definitely seen on prior exam. Previously noted enhancing lesion more inferiorly in the right lobe appears to be larger on today's study at approximately 16 mm compared with 5 mm on prior exam. In addition, enhancement pattern is not classic for typical hemangiomas. The gallbladder is unremarkable. The pancreas and spleen are unremarkable. No adrenal mass is identified. The kidneys are unremarkable. Aorta is non-aneurysmal. Small and large bowel loops appear to be normal caliber. However, there does appear to be a segment of circumferential wall thickening involving the descending colon, mid to distal aspect near the junction with the sigmoid. Mild pericolonic inflammatory stranding is present. Findings are consistent with a nonspecific colitis. No free fluid or fluid collection is seen. The bladder is unremarkable. IMPRESSION: 1. Circumferential wall thickening of the descending colon suggestive of nonspecific colitis. No free air, bowel obstruction or abscess formation is seen. 2. Hyperdense lesions within the liver, as described. One appears to be new and the second appears to be increased when compared with CT from September 2014. Etiology is indeterminate. A liver MRI would be useful for further evaluation on nonemergent basis. Dictated by: Dictated on workstation # [id number]
[2017-11-02] MEDS ORDERED: HYDROmorphone 2 MG/ML VIAL (DILAUDID) IVP STA (10:55)
[2017-11-02] MEDS ORDERED: metroNIDAZOLE 500MG/100ML IVPB 100 ML IV ONE (11:15)
[2017-11-02 12:00] VITALS: BP 134/83
[2017-11-02] MEDS ORDERED: CATHETER FLUSH 10 ML SYR IV PRN (12:30)
[2017-11-02] MEDS ORDERED: HYDROmorphone 2 MG/ML VIAL (DILAUDID) IV PRN (12:30)
[2017-11-02] MEDS ORDERED: LEVO100T7 PO (12:57)
[2017-11-02] MEDS ORDERED: MULT-35 PO (13:00)
[2017-11-02] MEDS: NS IV 1000 ML 1,000 ML IV SCH (13:14)
[2017-11-02] MEDS: CIPROFLOXACIN IV 400MG/200ML 200 ML IV SCH ×2 (13:14→20:02)
[2017-11-02] MEDS: ONDANSETRON 4 MG/2 ML (SDV) Z0FRAN IV PRN (13:15)
[2017-11-02] MEDS ORDERED: metroNIDAZOLE 500 MG/100 ML IVPB (PRE-MIX) IV SCH (14:00)
[2017-11-02] MEDS ORDERED: HYDROmorphone PF INJECTION 20 MG in NS (IVPB) 100 ML IV PRN (15:45)
[2017-11-02 16:00] VITALS: BP 128/63
[2017-11-02] MEDS ORDERED: FLUTICASONE NASAL SPRAY (FLONASE) 16 GM BTL NS PRN (16:00)
[2017-11-02] MEDS ORDERED: NON-FORMULARY MEDICATION 1 EA EA (Ranitidine HCl (Acid Reducer (RANITIDINE)) 150 MG) PO PRN (16:00)
[2017-11-02] MEDS ORDERED: FLUTICASONE PROPIONATE NS PRN (16:00)
[2017-11-02] MEDS ORDERED: FAMOTIDINE 20 MG (PEPCID) TABLET PO PRN (16:15)
[2017-11-02] MEDS: VENlafaxine 75 MG (EFFEXOR) TAB PO SCH (16:21)
[2017-11-02] MEDS: QUEtiapine 25 MG (SEROquel) TAB IMMEDIATE RELEASE PO SCH (20:02)
[2017-11-02 20:36] VITALS: BP 143/88
[2017-11-02] MEDS ORDERED: NON-FORMULARY MEDICATION 1 EA EA (Quetiapine Fumarate (Seroquel) 50 MG) PO SCH (21:00)
[2017-11-02] MEDS: metroNIDAZOLE 500 MG/100 ML IVPB (PRE-MIX) IV SCH (21:57)
[2017-11-03] VITALS: BP 117/74
[2017-11-03] MEDS: NS IV 1000 ML 1,000 ML IV SCH ×3 (03:02→17:32)
[2017-11-03 04:00] VITALS: BP 117/70
[2017-11-03] MEDS: metroNIDAZOLE 500 MG/100 ML IVPB (PRE-MIX) IV SCH ×3 (05:31→22:30)
[2017-11-03] MEDS: MULTIVIT W/MINERALS TAB (THERAGRAN M) PO SCH (05:31)
[2017-11-03] MEDS: VENlafaxine 75 MG (EFFEXOR) TAB PO SCH ×2 (05:31→17:32)
[2017-11-03] MEDS: LEVOTHYROXINE 100 MCG (LEVOTHROID) TAB PO SCH (05:31)
[2017-11-03 06:11] LABS: BASOPHILS % (AUTO) 0 % (0-10); EOSINOPHILS # (AUTO) 0.2 10^3/uL (0.0-0.3); EOSINOPHILS % (AUTO) 3 % (0-10); HEMATOCRIT 37 % (35-52); HEMOGLOBIN 12.2 G/DL (11.5-16.0); LYMPHOCYTES # (AUTO) 1.6 X 10^3 (1.0-4.0); LYMPHOCYTES % (AUTO) 30 % (12-44); MEAN CORPUSCULAR HEMOGLOBIN 29 PG (25-34); MEAN CORPUSCULAR HGB CONC 33 G/DL (32-36); MEAN CORPUSCULAR VOLUME 88 FL (80-99); MEAN PLATELET VOLUME 9.1 FL (7.4-10.4); MONOCYTES # (AUTO) 0.6 X 10^3 (0.0-1.0); MONOCYTES % (AUTO) 11 % (0-12); NEUTROPHILS % (AUTO) 56 % (42-75); PLATELET COUNT 295 10^3/uL (130-400); RED BLOOD COUNT 4.23 10^6/uL (4.35-5.85); RED CELL DISTRIBUTION WIDTH 14.9 % (10.0-14.5); WHITE BLOOD COUNT 5.3 10^3/uL (4.3-11.0)
[2017-11-03 06:28] LABS: ALANINE AMINOTRANSFERASE 45 U/L (0-55); ALBUMIN 4.1 GM/DL (3.2-4.5); ALKALINE PHOSPHATASE 102 U/L (40-136); BILIRUBIN,TOTAL 0.9 MG/DL (0.1-1.0); BUN/CREATININE RATIO 8; CALCIUM 9.1 MG/DL (8.5-10.1); CARBON DIOXIDE 26 MMOL/L (21-32); CHLORIDE 107 MMOL/L (98-107); CREATININE SERUM 0.73 MG/DL (0.60-1.30); GFR ESTIMATED > 60; GLUCOSE 122 MG/DL (70-105); MAGNESIUM 2.1 MG/DL (1.8-2.4); POTASSIUM 3.6 MMOL/L (3.6-5.0); SODIUM 141 MMOL/L (135-145); TOTAL PROTEIN 6.8 GM/DL (6.4-8.2)
[2017-11-03 08:00] VITALS: BP 147/71
[2017-11-03] MEDS ORDERED: NON-FORMULARY MEDICATION 1 EA EA (Multivitamin (Daily Multiple Vitamin) 1 TAB) PO SCH (09:00)
[2017-11-03] MEDS ORDERED: NON-FORMULARY MEDICATION 1 EA EA (Loratadine 10 MG) PO SCH (09:00)
[2017-11-03] MEDS ORDERED: NON-FORMULARY MEDICATION 1 EA EA (Escitalopram Oxalate 10 MG) PO SCH (09:00)
[2017-11-03] MEDS: ONDANSETRON 4 MG/2 ML (SDV) Z0FRAN IV PRN ×3 (09:32→20:49)
[2017-11-03] MEDS: CIPROFLOXACIN IV 400MG/200ML 200 ML IV SCH ×2 (09:32→20:20)
[2017-11-03] MEDS: LORATADINE (CLARITIN) 10 MG TAB PO SCH (09:32)
--- NOTE | 2017-11-03 11:29 | History & Physicial ([facility]) ---
HPI History of Present Illness: This is a 47 yo female who presents to ER w/ 1 day hx of diffuse abdominal pain. She reports blood-tinged mucous, diarrhea and nausea. Denies fever. Worse with eating and improved after defecating. Pt has prior hx of colitis with similar symptoms. She has had a previous colonoscopy by Dr. Pritchett but is unsure of the results. She continues to have pain since admission and is currently on a Dilaudid NARRATIVE WRITER. She tried to have Jello this am with increase in pain. Source: patient Exam Limitations: no limitations Date seen by provider: Nov 03, 2017 Time Seen by Provider: 09:55 Attending Physician Raine Spears DO PCP Williams Saeed MD Consult Date of Admission Nov 02, 2017 at 11:05 Home Medications Home Medications Reviewed patient Home Medication Reconciliation performed by pharmacy medication reconciliations earth science laboratory technician and/or nursing. Patients Allergies have been reviewed. Allergies Coded Allergies: No Known Drug Allergies (Unverified , 11/02/17) [id number] Hx Patient Social History Alcohol Use: Denies Use Recreational Drug Use: No Smoking Status: Former Smoker Former smoker/When Quit: Aug 11, 2014 Type Used: Cigarettes Recent Foreign Travel: No Contact w/other who traveled: No Recent Hopitalizations: No Recent Infectious Disease Expo: No Physical Abuse Screen: No Sexual Abuse: No Immunizations Up To Date Tetanus Booster (TDap): Unknown Date of Influenza Vaccine: Jun 30, 2017 Past Medical History Past Medical History 1. Questionable adult onset seizures with no known neurology evaluation 2. Recurrent abdominal pain diarrhea and bloody stools; hx of colitis 3. History of suicidal ideation with suicide attempt and explained. 4. Tobaccoism 5. Reported history of illicit barbiturate use 6. Hyperlipidemia 7. Hypertension 8. thryoid nodule 9. hypothyroidism 10. Lupus 11. Insomnia 12. Anxiety/depression 13. Eczema Past Surgical History 1. Hysterectomy at the age of 21 (VIRGIL/BSO) 2. Tonsillectomy 3. Colonoscopyy/EGD 11/22 [place] Family Medical History Significant Family History: Asthma, Cancer, CAD Under 55 Years Old, Diabetes Family History: Alcoholism 19 MOTHER Congenital heart disease G8 BROTHER Diabetes mellitus 19 FATHER Drug abuse 19 MOTHER G8 BROTHER Hypercholesterolemia 19 FATHER Hypertension 19 FATHER 19 MOTHER Kidney disease 19 FATHER Myocardial infarction 19 FATHER G8 BROTHER Neoplasm 19 FATHER (In the eye) Psychosocial problem 19 MOTHER Seizure disorder 19 MOTHER No Family History of: AIDS Abdominal aortic aneurysm Gove's disease Alzheimer's disease Aphasia Arthritis Asthma Cancer of mouth Cardiovascular disease Cataracts Colon cancer Completed stroke Congenital disease Coronary thrombosis Cystic fibrosis Deafness or hearing loss Dementia Dysphasia Fibrocystic disease of breast Gastroenteritis Glaucoma Headache disorder Infertility Not obtainable due to adoption Osteoporosis Parkinson's disease Prostate cancer Respiratory disorder Severe allergy Thyroid disease Tuberculosis Visual disorder Review of Systems ([facility]) Constitutional: see HPI; No fever Respiratory: no symptoms reported Cardiovascular: no symptoms reported Gastrointestinal: see HPI Genitourinary: no symptoms reported Reviewed Test Results Reviewed Test Results Lab Laboratory Tests 11/02/17 06:55: Urine Color YELLOW, Urine Clarity CLEAR, Urine pH 5, Urine Specific [place] 1.025H, Urine Protein 2+H, Urine Glucose (UA) NEGATIVE, Urine Ketones NEGATIVE, Urine Nitrite NEGATIVE, Urine Bilirubin NEGATIVE, Urine Urobilinogen NORMAL, Urine Leukocyte Esterase NEGATIVE, Urine RBC (Auto) NEGATIVE, Urine RBC NONE, Urine WBC 0-2, Urine Squamous Epithelial Cells 2-5, Urine Crystals NONE, Urine Bacteria FEWH, Urine Casts NONE, Urine Mucus NEGATIVE, Urine Culture Indicated NO 11/02/17 07:03: White Blood Count 13.8H, Red Blood Count 4.65, Hemoglobin 13.6, Hematocrit 40, Mean Corpuscular Volume 86, Mean Corpuscular Hemoglobin 29, Mean Corpuscular Hemoglobin Concent 34, Red Cell Distribution Width 14.6H, Platelet Count 339, Mean Platelet Volume 9.4, Neutrophils (%) (Auto) 85H, Lymphocytes (%) (Auto) 9L , Monocytes (%) (Auto) 5, Eosinophils (%) (Auto) 0, Basophils (%) (Auto) 0, Neutrophils # (Auto) 11.8H, Lymphocytes # (Auto) 1.2, Monocytes # (Auto) 0.7, Eosinophils # (Auto) 0.1, Basophils # (Auto) 0.0, Sodium Level 140, Potassium Level 4.0, Chloride Level 107, Carbon Dioxide Level 23, Anion Gap 10, Blood Urea Nitrogen 19H, Creatinine 0.80, Estimat Glomerular Filtration Rate > 60, BUN /Creatinine Ratio 24, Glucose Level 169H, Calcium Level 9.4, Magnesium Level 2.0 , Total Bilirubin 0.8, Aspartate Amino Transf (AST/SGOT) 29, Alanine Aminotransferase (ALT/SGPT) 54, Alkaline Phosphatase 130, Total Protein 7.6, Albumin 4.6H, Lipase 42 11/03/17 05:23: White Blood Count 5.3, Red Blood Count 4.23L, Hemoglobin 12.2, Hematocrit 37, Mean Corpuscular Volume 88, Mean Corpuscular Hemoglobin 29, Mean Corpuscular Hemoglobin Concent 33, Red Cell Distribution Width 14.9H, Platelet Count 295, Mean Platelet Volume 9.1, Neutrophils (%) (Auto) 56, Lymphocytes (%) (Auto) 30, Monocytes (%) (Auto) 11, Eosinophils (%) (Auto) 3, Basophils (%) (Auto) 0, Neutrophils # (Auto) 3.0, Lymphocytes # (Auto) 1.6, Monocytes # (Auto) 0.6, Eosinophils # (Auto) 0.2, Basophils # (Auto) 0.0, Sodium Level 141, Potassium Level 3.6, Chloride Level 107, Carbon Dioxide Level 26, Anion Gap 8, Blood Urea Nitrogen 6L, Creatinine 0.73, Estimat Glomerular Filtration Rate > 60, BUN/ Creatinine Ratio 8, Glucose Level 122H, Calcium Level 9.1, Magnesium Level 2.1, Total Bilirubin 0.9, Aspartate Amino Transf (AST/SGOT) 28, Alanine Aminotransferase (ALT/SGPT) 45, Alkaline Phosphatase 102, Total Protein 6.8, Albumin 4.1, C-Reactive Protein High Sensitivity 1.52H Radiology Date of Exam: 11/02/17 CT ABDOMEN/PELVIS W PROCEDURE: CT abdomen and pelvis with contrast. TECHNIQUE: Multiple contiguous axial images were obtained through the abdomen and pelvis after administration of intravenous contrast. INDICATION: Abdominal pain and diarrhea. Patient has history of colitis. COMPARISON: Made with prior CT from 06/28/2015. FINDINGS: The lung bases are clear. The liver demonstrates diffuse low density consistent with hepatic steatosis. There is an enhancing mass in the posterior right lobe of the liver measuring 15 mm, not definitely seen on prior exam. Previously noted enhancing lesion more inferiorly in the right lobe appears to be larger on today's study at approximately 16 mm compared with 5 mm on prior exam. In addition, enhancement pattern is not classic for typical hemangiomas. The gallbladder is unremarkable. The pancreas and spleen are unremarkable. No adrenal mass is identified. The kidneys are unremarkable. Aorta is non-aneurysmal. Small and large bowel loops appear to be normal caliber. However, there does appear to be a segment of circumferential wall thickening involving the descending colon, mid to distal aspect near the junction with the sigmoid. Mild pericolonic inflammatory stranding is present. Findings are consistent with a nonspecific colitis. No free fluid or fluid collection is seen. The bladder is unremarkable. IMPRESSION: 1. Circumferential wall thickening of the descending colon suggestive of nonspecific colitis. No free air, bowel obstruction or abscess formation is seen. 2. Hyperdense lesions within the liver, as described. One appears to be new and the second appears to be increased when compared with CT from September 2014. Etiology is indeterminate. A liver MRI would be useful for further evaluation on nonemergent basis. Physical Exam-([facility]) Physical Exam Vital Signs VS - Last 72 Hours, by Label 11/02/17 11/02/17 11/02/17 11/02/17 06:17 11:56 12:00 13:25 Temp 98.1 97.8 98.7 Pulse 85 82 80 83 Resp 20 12 20 B/P (MAP) 162/113 (129) 154/126 134/83 (100) Pulse Ox 97 96 94 93 O2 Delivery Room Air Room Air Room Air FiO2 21 11/02/17 11/02/17 11/02/17 11/02/17 13:30 16:00 19:36 20:36 Temp 98.4 98.1 Pulse 79 95 Resp 20 20 B/P (MAP) 128/63 (84) 143/88 (106) Pulse Ox 94 93 96 96 O2 Delivery Room Air Room Air Room Air Room Air 11/03/17 11/03/17 11/03/17 00:00 04:00 08:00 Temp 97.4 97.3 97.3 Pulse 86 79 84 Resp 19 16 16 B/P (MAP) 117/74 (88) 117/70 (86) 147/71 (96) Pulse Ox 94 93 98 O2 Delivery Room Air Room Air Room Air Capillary Refill : Less Than 3 Seconds General Appearance: WD/WN, no apparent distress HEENT: PERRL/EOMI Respiratory: lungs clear, normal breath sounds, no respiratory distress, no accessory muscle use Cardiovascular: regular rate, rhythm, no edema Gastrointestinal: soft; No guarding, No rebound; tenderness (generalized) Extremities: no pedal edema Neurologic/Psychiatric: alert, normal mood/affect, oriented x 3 Skin: normal color, warm/dry Assessment/Plan Assessment/Plan Admission Dx 1. Colitis Admission Status: Inpatient Order (span 2 midnights) Reason for Inpatient Admission: Colitis requiring IV antibitoics Assessment & Plan 1. Colitis - Patient admitted 11/02/17, started on IV Cipro and Flagyl - Dilaudid NARRATIVE WRITER started for pain control, will change to Toradol IM - wbc 13.8 on admission, wbc now 5.3, Hb stable - home meds restarted - will need colonoscopy after discharge 2. Enhancing liver lesions on CT scan - will need MRI for follow-up as out-patient 3. Fatty Liver on CT scan - will f/u with PCP as out-patient Clinical Quality Measures DVT/VTE Risk/Contraindication: Risk Factor Score Per Nursin RFS Level Per Nursing on Admit: 2=Moderate Risk Score Comment: SCDs ordered ALISSA MAIER DO Nov 03, 2017 11:29
[2017-11-03 12:00] VITALS: BP 137/64
[2017-11-03] MEDS: KETOROLAC 30 MG/ML VIAL IVP PRN ×2 (14:48→20:50)
[2017-11-03 15:55] VITALS: BP 145/74
[2017-11-03 20:00] VITALS: BP 136/86
[2017-11-03] MEDS: QUEtiapine 25 MG (SEROquel) TAB IMMEDIATE RELEASE PO SCH (20:20)
[2017-11-04] VITALS: BP 114/65
[2017-11-04 03:37] VITALS: BP 110/61
[2017-11-04] MEDS: NS IV 1000 ML 1,000 ML IV SCH (04:52)
[2017-11-04] MEDS: VENlafaxine 75 MG (EFFEXOR) TAB PO SCH (06:04)
[2017-11-04] MEDS: metroNIDAZOLE 500 MG/100 ML IVPB (PRE-MIX) IV SCH (06:04)
[2017-11-04] MEDS: LEVOTHYROXINE 100 MCG (LEVOTHROID) TAB PO SCH (06:04)
[2017-11-04] MEDS: MULTIVIT W/MINERALS TAB (THERAGRAN M) PO SCH (06:04)
[2017-11-04 08:00] VITALS: BP 130/84
[2017-11-04] MEDS: LORATADINE (CLARITIN) 10 MG TAB PO SCH (09:09)
[2017-11-04] MEDS: CIPROFLOXACIN IV 400MG/200ML 200 ML IV SCH (09:10)
[2017-11-04 10:32] LABS: HEMOGLOBIN 12.2 G/DL (11.5-16.0); MEAN PLATELET VOLUME 8.6 FL (7.4-10.4); RED BLOOD COUNT 4.27 10^6/uL (4.35-5.85); RED CELL DISTRIBUTION WIDTH 14.3 % (10.0-14.5); WHITE BLOOD COUNT 5.5 10^3/uL (4.3-11.0)
[2017-11-04] MEDS ORDERED: METR500T21 PO (11:43)
--- NOTE | 2017-11-04 11:47 | Discharge Instructions ---
Discharge [facility] Discharge Medications New, Converted or Re-Newed RX: Transmitted to Pharmacy ([facility]) New Medications: Metronidazole (Metronidazole) 500 Mg Tablet 500 MG PO Q8H for 7 Days, #21 TAB 0 Refills Continued Medications: Escitalopram Oxalate (Escitalopram Oxalate) 10 Mg Tablet 10 MG PO DAILY, TAB Fluticasone Propionate (Clarispray) 9.9 Ml [place].susp 2 SPRAYS NS DAILY PRN for CONGESTION, SPRAY Levothyroxine Sodium (Levothyroxine Sodium) 100 Mcg Tablet 100 MCG PO DAILY, TAB Loratadine (Loratadine) 10 Mg Tablet 10 MG PO DAILY, TAB Metoprolol Tartrate (Metoprolol Tartrate) 100 Mg Tablet 100 MG PO DAILY, TAB Multivitamin (Daily Multiple Vitamin) 1 Each Tablet 1 TAB PO DAILY, TAB Quetiapine Fumarate (Seroquel) 50 Mg Tablet 50 MG PO HS, TAB Ranitidine HCl (Acid Kennel Technician (RANITIDINE)) 150 Mg Tablet 150 MG PO BID PRN for HEARTBURN, TAB Venlafaxine HCl (Venlafaxine HCl) 75 Mg Tab 75 MG PO BID, TAB Patient Instructions Goal/Follow Up Appt: Follow up with Elida Jalloh APRN 11/09/17 at 11:40am Activity & Diet Discharge Diet: Soft Diet ALISSA MAIER DO Nov 04, 2017 11:44
--- NOTE | 2017-11-04 11:48 | Discharge Summary ---
Diagnosis/Chief Complaint Date of Admission Nov 02, 2017 at 11:05 Date of Discharge November 04, 2017 Admission Diagnosis Admission Diagnosis 1. Colitis Discharge Diagnosis 1. Colitis - Patient admitted 11/02/17, started on IV Cipro and Flagyl - Dilaudid EMR TRAINER started for pain control, will change to Toradol IM - wbc 13.8 on admission, wbc now 5.3, Hb stable - home meds restarted - will need colonoscopy after discharge 11/04 - pain improved, wbc 5.5, Hb stable at 12.2 - DC home w/ RX for Flagyl 2. Enhancing liver lesions on CT scan - will need MRI for follow-up as out-patient 3. Fatty Liver on CT scan - will f/u with PCP as out-patient Chief Complaint/HPI Chief Complaint/HPI This is a 47 yo female who presents to ER w/ 1 day hx of diffuse abdominal pain. She reports blood-tinged mucous, diarrhea and nausea. Denies fever. Worse with eating and improved after defecating. Pt has prior hx of colitis with similar symptoms. She has had a previous colonoscopy by Dr. Pritchett but is unsure of the results. She continues to have pain since admission and is currently on a Dilaudid EMR TRAINER. She tried to have Jello this am with increase in pain. Discharge Summary-Simple/Stand Consultations Discharge Physical Examination Allergies: Coded Allergies: No Known Drug Allergies (Unverified , 11/02/17) Vitals & I&Os Vital Sign - Last 12Hours Date Time Temp Pulse Resp B/P (MAP) Pulse Ox O2 Delivery O2 Flow Rate FiO2 11/04/17 08:00 97.3 80 20 130/84 (99) 98 Room Air 11/02/17 13:25 21 Intake and Output 11/04/17 00:00 Intake Total 1492 ml Balance 1492 ml General Appearance: Alert, Oriented X3, Cooperative Abdominal: Normal Bowel Sounds, Soft, No Tenderness (minimal) Psych/Mental Status: Mental Status NL, Mood NL Hospital Course See final discharge diagnosis. Radiology Reviewed Date of Exam: 11/02/17 CT ABDOMEN/PELVIS W PROCEDURE: CT abdomen and pelvis with contrast. TECHNIQUE: Multiple contiguous axial images were obtained through the abdomen and pelvis after administration of intravenous contrast. INDICATION: Abdominal pain and diarrhea. Patient has history of colitis. COMPARISON: Made with prior CT from 06/28/2015. FINDINGS: The lung bases are clear. The liver demonstrates diffuse low density consistent with hepatic steatosis. There is an enhancing mass in the posterior right lobe of the liver measuring 15 mm, not definitely seen on prior exam. Previously noted enhancing lesion more inferiorly in the right lobe appears to be larger on today's study at approximately 16 mm compared with 5 mm on prior exam. In addition, enhancement pattern is not classic for typical hemangiomas. The gallbladder is unremarkable. The pancreas and spleen are unremarkable. No adrenal mass is identified. The kidneys are unremarkable. Aorta is non-aneurysmal. Small and large bowel loops appear to be normal caliber. However, there does appear to be a segment of circumferential wall thickening involving the descending colon, mid to distal aspect near the junction with the sigmoid. Mild pericolonic inflammatory stranding is present. Findings are consistent with a nonspecific colitis. No free fluid or fluid collection is seen. The bladder is unremarkable. IMPRESSION: 1. Circumferential wall thickening of the descending colon suggestive of nonspecific colitis. No free air, bowel obstruction or abscess formation is seen. 2. Hyperdense lesions within the liver, as described. One appears to be new and the second appears to be increased when compared with CT from September 2014. Etiology is indeterminate. A liver MRI would be useful for further evaluation on nonemergent basis. Discharge Instructions to patient/family Please see electronic discharge instructions given to patient. Patient Instructions Goal/Follow Up Appt: Follow up with Elida Jalloh APRN 11/09/17 at 11:40am Activity & Diet Discharge Diet: Soft Diet Discharge Medications Reviewed and agree with Discharge Medication list on patient's Discharge Instruction sheet Discharge Medications New, Converted or Re-Newed RX: Transmitted to Pharmacy ([facility]) New Medications: Metronidazole (Metronidazole) 500 Mg Tablet 500 MG PO Q8H for 7 Days, #21 TAB 0 Refills Continued Medications: Escitalopram Oxalate (Escitalopram Oxalate) 10 Mg Tablet 10 MG PO DAILY, TAB Fluticasone Propionate (Clarispray) 9.9 Ml [place].susp 2 SPRAYS NS DAILY PRN for CONGESTION, SPRAY Levothyroxine Sodium (Levothyroxine Sodium) 100 Mcg Tablet 100 MCG PO DAILY, TAB Loratadine (Loratadine) 10 Mg Tablet 10 MG PO DAILY, TAB Metoprolol Tartrate (Metoprolol Tartrate) 100 Mg Tablet 100 MG PO DAILY, TAB Multivitamin (Daily Multiple Vitamin) 1 Each Tablet 1 TAB PO DAILY, TAB Quetiapine Fumarate (Seroquel) 50 Mg Tablet 50 MG PO HS, TAB Ranitidine HCl (Acid Middle School History Teacher (RANITIDINE)) 150 Mg Tablet 150 MG PO BID PRN for HEARTBURN, TAB Venlafaxine HCl (Venlafaxine HCl) 75 Mg Tab 75 MG PO BID, TAB Clinical Quality Measures DVT/VTE Risk/Contraindication: Risk Factor Score Per Nursin RFS Level Per Nursing on Admit: 2=Moderate Risk Score Comment: SCDs ordered ALISSA MAIER DO Nov 04, 2017 11:48
== END 2017-11-04 12:10 | disposition home or self-care (01) | DRG 392 ==
LOC: EDUNIT# 06:10 → ER 06:14 → 4TH 11:05
PROVIDERS: ADMIT Family Medicine; ATTEND Family Medicine
DX: K52.9 Noninfective gastroenteritis and colitis, unspecified (principal); K76.0 Fatty (change of) liver, not elsewhere classified; I10 Essential (primary) hypertension; E78.5 Hyperlipidemia, unspecified; E03.9 Hypothyroidism, unspecified; M32.9 Systemic lupus erythematosus, unspecified; F31.9 Bipolar disorder, unspecified; G47.00 Insomnia, unspecified; Z87.891 Personal history of nicotine dependence
CPT/HCPCS: 36415; 74177; 80053; 81000; 83690; 83735; 85025; 85027; 86141; 94760; 96361; 96374; 96375

== ENCOUNTER → 2017-11-17 | Outpatient (CLI) | payer OTHER ==
[~2017-11-17] MED LIST changes: +GADOXETATE 2.5 MMOL/10 ML (EOVIST) IV ONE; +MULT-35 PO
--- NOTE | 2017-11-17 13:06 | Diagnostic Imaging Report ---
PROCEDURE: MR imaging abdomen with and without contrast. TECHNIQUE: Multiplanar, multisequence MR imaging of the abdomen was performed with and without contrast. INDICATION: Abnormal CT exam. FINDINGS: The recent CT abdomen/pelvis exam of 11/02/2017 noted a 16 mm enhancing lesion in the right lobe of the liver. This lesion had measured 5 mm [address] abdomen/pelvis exam of 06/28/2015. In addition, there was another lesion measuring approximately 15 mm in the posterior aspect of the right lobe of the liver. This had developed in the interval since the previous CT exam of 06/28/2015. On this study, both lesions have similar signal characteristics. These lesions are slightly hyperintense on the T1 series, hypointense on the T2 FRFSE series, hyperintense on the FIESTA, series and do show rim enhancement on the 20-minute delayed images. There is another area of similar appearing altered signal along the anterior margin of the gallbladder fossa. This measures 15 x 23 mm. There are a few smaller (5 mm or less) areas of enhancement within the right lobe of the liver as well on the delayed series. These signal characteristics are not entirely typical for hemangioma, hepatic adenoma, or focal nodular hyperplasia. Even so, I do suspect that these lesions are most likely benign. I would recommend that correlation with the patient's liver enzyme values be performed. If the patient's liver enzymes are suspicious for hepatic replacement process, then PET/CT would be recommended for further study. If a tissue diagnosis is desired, then these lesions could be biopsied using CT guidance. However, if they are atypical hemangiomas, the potential for hemorrhage does exist. If the PET/CT exam is not performed and if there is no intervention at this time, then a short-term (three-month) followup MRI abdomen exam should be obtained. There is another area of slightly altered signal within the left lobe of the liver measuring 19 mm. This finding is of uncertain etiology but could also be related to a hemangioma. No other abnormality is identified. IMPRESSION: 1. There are multiple areas of abnormal enhancement within the liver. While the precise etiology of these findings is not certain, they are more likely due to a benign process than to neoplastic disease. Recommendations as above. 2. These results were discussed with Dr. Elida Jalloh. Dictated by: Dictated on workstation # [id number]
== END ==
LOC: RAD 09:18
PROVIDERS: ATTEND Nurse Practitioner Community Health
DX: D37.6 Neoplasm of uncertain behavior of liver, gallbladder and bile ducts (principal)
CPT/HCPCS: 74183

== ENCOUNTER → 2017-12-06 | Outpatient (CLI) | payer SELFPAY ==
[~2017-12-06] MED LIST changes: -GADOXETATE 2.5 MMOL/10 ML (EOVIST) IV ONE
--- NOTE | 2017-12-06 13:38 | Diagnostic Imaging Report ---
INDICATION: Multiple liver lesions. Study is performed for further evaluation. TECHNIQUE: Serum blood glucose level at time of injection was 129 mg/dL. The patient was administered 12.3 mCi of F-18 FDG intravenously administered in the right antecubital location and PET imaging was performed from the top of skull to the mid thighs. In addition, noncontrast CT was performed for attenuation correction and anatomic correlation. COMPARISON: Correlation is made with prior MRI of the abdomen from 11/17/[address] of the abdomen and pelvis from 11/02/2017. FINDINGS: There is symmetric activity within the brain parenchyma. Soft tissues of the neck are unremarkable. Imaging through the chest is without evidence of mediastinal or hilar hypermetabolism. No pulmonary parenchymal abnormality is seen. Imaging through the abdomen and pelvis demonstrates normal expected activity throughout the liver. No definite hepatic hypermetabolism is seen to account for the abnormalities noted on MRI and CT. There is normal physiologic activity within the liver and spleen as well as the GI and tracts. IMPRESSION: Essentially unremarkable PET/CT. Specifically, no hypermetabolism is seen within the liver to account for enhancing liver lesions noted on MRI and CT. Continued followup with MRI or CT is recommended to confirm stability of the liver lesions. Dictated by: Dictated on workstation # [id number]
== END ==
LOC: RAD 07:55
PROVIDERS: ATTEND Nurse Practitioner Community Health
DX: D37.6 Neoplasm of uncertain behavior of liver, gallbladder and bile ducts (principal)

== ENCOUNTER 2020-05-14 05:05 | Emergency (ER) | payer SELFPAY ==
[~2020-05-14] VITALS: Ht 162 cm; Wt 90.0 kg
[~2020-05-14 05:05] MED LIST changes: +METR-145 PO; -METR500T21 PO; -TRAM50TA2 PO; +TRM50T PO
[2020-05-14] MEDS ORDERED: LACTATED RINGERS 1,000 ML IV STA (06:00)
[2020-05-14] MEDS ORDERED: ONDANSETRON 4 MG/2 ML (SDV) Z0FRAN IVP ONE (06:00)
[2020-05-14] MEDS ORDERED: fentaNYL INJECTION 100 MCG/2 ML AMP IVP STA (06:00)
--- NOTE | 2020-05-14 06:00 | ED Abdominal Pain ---
General Chief Complaint: Abdominal/GI Problems Stated Complaint: ABD PAIN, PT STS HAS ULCERATIVE COLITIS Nursing Triage Note: Pt here with onset of abdominal pain with n/v/d. States she has ulcerative colitis. Sepsis Screen: No Definite Risk Source of Information: Patient Exam Limitations: No Limitations History of Present Illness Date Seen by Provider: May 14, 2020 Time Seen by Provider: 05:57 Initial Comments 49-year-old female presents with abdominal pain, nausea, vomiting, diarrhea. She reports it started around 10:30 last night. Patient states she has "ulcerative colitis" but has not had a flareup in 3 years does not have a GI specialist. She denies any fevers or chills. Pain is mainly in the bilateral lower abdomen. No reports any bloody stool. She is not taking any long-term medication for ulcerative colitis. Allergies and Home Medications Allergies Coded Allergies: No Known Drug Allergies (Unverified , 11/02/17) Home Medications Escitalopram Oxalate 10 Mg Tablet, 10 MG PO DAILY, (Reported) Fluticasone Propionate 9.9 Ml [place].susp, 2 SPRAYS NS DAILY PRN for CONGESTION, (Reported) Levothyroxine Sodium 100 Mcg Tablet, 100 MCG PO DAILY, (Reported) Loratadine 10 Mg Tablet, 10 MG PO DAILY, (Reported) Metoprolol Tartrate 100 Mg Tablet, 100 MG PO DAILY, (Reported) Metronidazole 500 Mg Tablet, 500 MG PO Q8H Prescribed by: ALISSA MAIER on 11/04/17 1143 Multivitamin 1 Each Tablet, 1 TAB PO DAILY, (Reported) Quetiapine Fumarate 50 Mg Tablet, 50 MG PO HS, (Reported) Ranitidine HCl 150 Mg Tablet, 150 MG PO BID PRN for HEARTBURN, (Reported) Venlafaxine HCl 75 Mg Tab, 75 MG PO BID, (Reported) Patient Home Medication List Home Medication List Reviewed: Yes Review of Systems Review of Systems Constitutional: No chills, No fever EENTM: No Symptoms Reported Respiratory: Denies Cough, Denies Shortness of Air Cardiovascular: Denies Chest Pain, Denies Lightheadedness Gastrointestinal: Abdominal Pain, Diarrhea, Nausea, Vomiting Genitourinary: No Symptoms Reported Musculoskeletal: no symptoms reported Skin: no symptoms reported Psychiatric/Neurological: No Symptoms Reported Endocrine: No Symptoms Reported Hematologic/Lymphatic: No Symptoms Reported Past Igjsfqq-Hvsrrp-Wevggx Hx Past Med/Social Hx: Reviewed Nursing Past Med/Soc Hx Patient Social History Type Used: Cigarettes Former Smoker, Quit: Jun 22, 2013 Recent Foreign Travel: No Contact w/Someone Who Travel: No Recent Infectious Disease Expo: No Recent Hopitalizations: No Immunizations Up To Date Tetanus Booster (TDap): Unknown Date of Influenza Vaccine: Jun 30, 2017 Seasonal Allergies Seasonal Allergies: Yes Past Medical History Surgeries: Yes Adenoidectomy, Hysterectomy, Tonsillectomy Respiratory: No Cardiac: Yes High Cholesterol, Hypertension Neurological: Yes (Last Seizure 2014) Seizure Disorder Reproductive Disorders: No 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 Sexually Transmitted Disease: No HIV/AIDS: No Kidney Infection Gastrointestinal: Yes Colitis Musculoskeletal: No Endocrine: Yes (Thyroid Nodules) Hypothyroidsim, Lupus HEENT: No Loss of Vision: Bilateral Hearing Impairment: Denies Cancer: No Psychosocial: Yes Sleep Difficulties, Anxiety, Depression Integumentary: No Eczema Blood Disorders: No Adverse Reaction/Blood Tranf: No Family Medical History Alcoholism 19 MOTHER Congenital heart disease G8 BROTHER Diabetes mellitus 19 FATHER Drug abuse 19 MOTHER G8 BROTHER Hypercholesterolemia 19 FATHER Hypertension 19 FATHER 19 MOTHER Kidney disease 19 FATHER Myocardial infarction 19 FATHER G8 BROTHER Neoplasm 19 FATHER (In the eye) Psychosocial problem 19 MOTHER Seizure disorder 19 MOTHER No Family History of: AIDS Abdominal aortic aneurysm [place]'s disease Alzheimer's disease Aphasia Arthritis Asthma Cancer of mouth Cardiovascular disease Cataracts Colon cancer Completed stroke Congenital disease Coronary thrombosis Cystic fibrosis Deafness or hearing loss Dementia Dysphasia Fibrocystic disease of breast Gastroenteritis Glaucoma Headache disorder Infertility Not obtainable due to adoption Osteoporosis Parkinson's disease Prostate cancer Respiratory disorder Severe allergy Thyroid disease Tuberculosis Visual disorder Asthma, Cancer, CAD Under 55 Years Old, Diabetes Physical Exam Vital Signs Vital Signs - First Documented 05/14/20 05:26 Temp 36.1 Pulse 92 Resp 20 B/P (MAP) 189/108 (135) Pulse Ox 96 O2 Delivery Room Air Capillary Refill : Less Than 3 Seconds Height/Weight/BMI Height: 5'4.00" Weight: 192lbs. 3.0oz. [id number]; 34.00 BMI Method:Stated General Appearance: other (uncomfortable) Respiratory: lungs clear, normal breath sounds, no respiratory distress Cardiovascular: normal peripheral pulses, regular rate, rhythm Gastrointestinal: non tender, soft Extremities: normal range of motion, non-tender Back: normal inspection, no vertebral tenderness Neurologic/Psychiatric: no motor/sensory deficits, alert, normal mood/affect, oriented x 3 Skin: normal color, warm/dry Progress/Results/Core Measures Results/Orders Lab Results Laboratory Tests Test 05/14/20 05:20 05/14/20 06:05 Range/Units White Blood Count 23.3 H 4.3-11.0 10^3/uL Red Blood Count 5.05 3.80-5.11 10^6/uL Hemoglobin 14.7 11.5-16.0 g/dL Hematocrit 45 35-52 % Mean Corpuscular Volume 89 80-99 fL Mean Corpuscular Hemoglobin 29 25-34 pg Mean Corpuscular Hemoglobin Concent 33 32-36 g/dL Red Cell Distribution Width 15.4 H 10.0-14.5 % Platelet Count 435 H 130-400 10^3/uL Mean Platelet Volume 9.5 9.0-12.2 fL Immature Granulocyte % (Auto) 0 % Neutrophils (%) (Auto) 91 H 42-75 % Lymphocytes (%) (Auto) 4 L 12-44 % Monocytes (%) (Auto) 4 0-12 % Eosinophils (%) (Auto) 0 0-10 % Basophils (%) (Auto) 0 0-10 % Neutrophils # (Auto) 21.2 H 1.8-7.8 10^3/uL Lymphocytes # (Auto) 1.0 1.0-4.0 10^3/uL Monocytes # (Auto) 0.9 0.0-1.0 10^3/uL Eosinophils # (Auto) 0.0 0.0-0.3 10^3/uL Basophils # (Auto) 0.1 0.0-0.1 10^3/uL Immature Granulocyte # (Auto) 0.1 0.0-0.1 10^3/uL Neutrophils % (Manual) 91 % Lymphocytes % (Manual) 7 % Monocytes % (Manual) 2 % Toxic Granulation 1+ Blood Morphology Comment NORMAL Erythrocyte Sedimentation Rate 2 0-20 MM/HR Sodium Level 139 135-145 MMOL/L Potassium Level 4.1 3.6-5.0 MMOL/L Chloride Level 105 98-107 MMOL/L Carbon Dioxide Level 18 L 21-32 MMOL/L Anion Gap 16 H 5-14 MMOL/L Blood Urea Nitrogen 17 7-18 MG/DL Creatinine 0.90 0.60-1.30 MG/DL Estimat Glomerular Filtration Rate > 60 BUN/Creatinine Ratio 19 Glucose Level 184 H 70-105 MG/DL Calcium Level 9.1 8.5-10.1 MG/DL Corrected Calcium 8.5-10.1 MG/DL Total Bilirubin 0.7 0.1-1.0 MG/DL Aspartate Amino Transf (AST/SGOT) 26 5-34 U/L Alanine Aminotransferase (ALT/SGPT) 69 H 0-55 U/L Alkaline Phosphatase 134 40-136 U/L C-Reactive Protein High Sensitivity 1.09 H 0.00-0.50 MG/DL Total Protein 8.0 6.4-8.2 GM/DL Albumin 4.8 H 3.2-4.5 GM/DL Lipase 63 8-78 U/L My Orders Orders - LILIA RICK DO Comprehensive Metabolic Panel (05/14/20 06:00) Lipase (05/14/20 06:00) Ua Culture If Indicated (05/14/20 06:00) Cbc With Automated Diff (05/14/20 06:00) Hs C Reactive Protein (05/14/20 06:00) Erythrocyte Sedimentation Rate (05/14/20 06:00) Ondansetron Injection (Zofran Injectio (05/14/20 06:00) Lactated Ringers (Lr 1000 Ml Iv Solution (05/14/20 06:00) Ed Iv/Invasive Line Start (05/14/20 06:00) Fentanyl Injection (Sublimaze Injection (05/14/20 06:00) Manual Differential (05/14/20 05:20) Ct Abdomen/Pelvis W (05/14/20 07:00) Iohexol Injection (Omnipaque 350 Mg/Ml 1 (05/14/20 07:15) Received Contrast (Hold Metformin- Contr (05/14/20 07:15) Ns (Ivpb) (Sodium Chloride 0.9% Ivpb Bag (05/14/20 07:15) Hydrocodone/Apap 5/325 Tablet (Lortab 5 (05/14/20 08:00) Methylprednisolone Sod Succ (Solu-Medrol (05/14/20 07:53) Medications Given in ED Current Medications Medications Dose Ordered Sig/Prudencio Route Start Time Stop Time Status Last Admin Dose Admin Acetaminophen/ Hydrocodone Bitart 1 tab ONCE ONCE PO 05/14/20 08:00 05/14/20 08:01 DC 05/14/20 08:01 1 TAB Iohexol 100 ml ONCE ONCE IV 05/14/20 07:15 05/14/20 07:16 DC 05/14/20 07:25 100 ML Ondansetron HCl 4 mg ONCE ONCE IVP 05/14/20 06:00 05/14/20 06:03 DC 05/14/20 06:08 4 MG Sodium Chloride 100 ml ONCE ONCE IV 05/14/20 07:15 05/14/20 07:16 DC 05/14/20 07:26 80 ML Vital Signs/I&O 05/14/20 05:26 Temp 36.1 Pulse 92 Resp 20 B/P (MAP) 189/108 (135) Pulse Ox 96 O2 Delivery Room Air Blood Pressure Mean: 135 Progress Progress Note : Time: 08:06 Progress Note Patient with a colitis on her CT exam. She will be discharged home with prednisone, Flagyl, Cipro, nausea medication and hydrocodone for pain. I recommended that she follow-up with her primary care provider to establish a Gen. surgery consult for follow-up colonoscopy. Patient stable and will be discharged home Departure Impression Primary Impression: Colitis Disposition: 01 HOME, SELF-CARE Condition: Stable Departure-Patient Inst. Referrals: RICKI SHAW APRN (PCP) Primary Care Physician [facility] (Family) Primary Care Physician Patient Instructions: Colitis Add. Discharge Instructions: Follow-up with your primary care provider to arrange for an outpatient GI consult and colonoscopy in the future All discharge instructions reviewed with patient and/or family. Voiced understanding. Scripts Prednisone (Prednisone) 20 Mg Tab 40 MG PO DAILY, #6 TAB Prov: LILIA RICK L DO 05/14/20 Metronidazole (Flagyl) 500 Mg Tablet 500 MG PO TID, #21 TAB Prov: NIDIA RICKR L DO 05/14/20 Ondansetron (Ondansetron Odt) 4 Mg Tab.rapdis 4 MG PO Q6H PRN for NAUSEA/VOMITING, #20 TAB 0 Refills Prov: NIDIA RICKR L DO 05/14/20 Ciprofloxacin HCl (Ciprofloxacin HCl) 500 Mg Tablet 500 MG PO BID, #14 TAB Prov: LILIA RICK L DO 05/14/20 Work/School Note: Work Release Form Date Seen in the Emergency Department: May 14, 2020 Return to Work: May 16, 2020 LILIA RICK DO May 14, 2020 06:00
[2020-05-14 06:33] LABS: BASOPHILS # (AUTO) 0.1 10^3/uL (0.0-0.1); BASOPHILS % (AUTO) 0 % (0-10); EOSINOPHILS % (AUTO) 0 % (0-10); HEMATOCRIT 45 % (35-52); HEMOGLOBIN 14.7 g/dL (11.5-16.0); LYMPHOCYTES % (AUTO) 4 % (12-44); MEAN CORPUSCULAR HEMOGLOBIN 29 pg (25-34); MEAN CORPUSCULAR HGB CONC 33 g/dL (32-36); MEAN CORPUSCULAR VOLUME 89 fL (80-99); MEAN PLATELET VOLUME 9.5 fL (9.0-12.2); MONOCYTES # (AUTO) 0.9 10^3/uL (0.0-1.0); MONOCYTES % (AUTO) 4 % (0-12); NEUTROPHILS # (AUTO) 21.2 10^3/uL (1.8-7.8); NEUTROPHILS % (AUTO) 91 % (42-75); PLATELET COUNT 435 10^3/uL (130-400); WHITE BLOOD COUNT 23.3 10^3/uL (4.3-11.0)
[2020-05-14 06:46] LABS: ALBUMIN 4.8 GM/DL (3.2-4.5); CHLORIDE 105 MMOL/L (98-107); POTASSIUM 4.1 MMOL/L (3.6-5.0); SODIUM 139 MMOL/L (135-145)
[2020-05-14 06:48] LABS: CALCIUM 9.1 MG/DL (8.5-10.1)
[2020-05-14 06:49] LABS: GLUCOSE 184 MG/DL (70-105)
[2020-05-14 06:50] LABS: CARBON DIOXIDE 18 MMOL/L (21-32)
[2020-05-14 06:51] LABS: BILIRUBIN,TOTAL 0.7 MG/DL (0.1-1.0)
[2020-05-14 06:52] LABS: ALKALINE PHOSPHATASE 134 U/L (40-136); GFR ESTIMATED > 60
[2020-05-14 06:53] LABS: BUN/CREATININE RATIO 19
[2020-05-14 06:55] LABS: ALANINE AMINOTRANSFERASE 69 U/L (0-55)
[2020-05-14 06:56] LABS: LIPASE 63 U/L (8-78)
[2020-05-14 07:02] LABS: LYMPHOCYTES % (MANUAL) 7 %; MONOCYTES % (MANUAL) 2 %; NEUTROPHILS % (MANUAL) 91 %; RBC MORPH NORMAL; TOXIC GRANULATION/VACUOLAZATIO 1+
[2020-05-14] MEDS ORDERED: HOLD METFORMIN - RECEIVED CONTRAST 20 ML VIAL IV SCH (07:15)
[2020-05-14] MEDS ORDERED: IOHEXOL 350 MG/ML 100 ML (OMNIPAQUE 350) VIAL IV ONE (07:15)
[2020-05-14] MEDS ORDERED: NS 100 ML (IVPB) BAG IV ONE (07:15)
--- NOTE | 2020-05-14 07:47 | Diagnostic Imaging Report ---
PROCEDURE: CT abdomen and pelvis with contrast. TECHNIQUE: Multiple contiguous axial images were obtained through the abdomen and pelvis after administration of intravenous contrast. Auto Exposure Controls were utilized during the CT exam to meet ALARA standards for radiation dose reduction. All CT scans use one or more of the following dose optimizing techniques: automated exposure control, MA and/or KvP adjustment based on patient size and exam type or iterative reconstruction. INDICATION: Abdominal pain. History of colitis. FINDINGS: Lung bases are clear. The enhancing lesion noted posterior laterally in the mid right lobe of the liver is again demonstrated. This is well-circumscribed. This measures approximately 1.5 x 1.6 cm showing very little overall change. Also just central to this is a 10 mm enhancing lesion with similar appearance which is stable. No new liver lesions have developed. There is diffuse fatty change of the liver. Gallbladder appears normal. Bile ducts are not dilated. The pancreas and spleen are normal. The adrenal glands are not enlarged. Kidneys show no evidence of obstruction or calculi. There is symmetrical nephrogram effect following IV contrast. No masses are demonstrated. The aorta and abdominal vessels show normal enhancement. Stomach and small bowel are not distended. No bowel wall thickening noted throughout the small bowel. The colon shows some stool and gas throughout to the rectum, though there is no evidence of constipation or impacted stool. There is long segment spasmolytic colon with diffuse thickening of the small bowel wall throughout from the mid transverse colon to the rectum. No evidence of free air or free fluid. No intra-abdominal adenopathy of pathologic size is demonstrated. Bladder is not distended. No blastic or lytic bony changes. IMPRESSION: 1. Long segment spasmolytic colon from the mid transverse colon to the rectum with some overall mesenteric edema adjacent to the small bowel suggesting colitis. This has a similar though slightly worse overall appearance when compared with 11/02/2017 exam. 2. Enhancing hepatic lesions posteriorly in the midportion right lobe of the liver showing very little overall change in appearance likely representing hemangioma. Dictated by: Dictated on workstation # [id number]
[2020-05-14] MEDS ORDERED: methylPREDNISolone 125 MG (Solu-MEDROL) VIAL IV STA (07:53)
[2020-05-14] MEDS ORDERED: HYDROcodone/APAP 5 MG/325 MG (LORTAB) TAB PO ONE (08:00)
[2020-05-14] MEDS ORDERED: PRD20T PO (08:12)
[2020-05-14] MEDS ORDERED: ACHD5005 PO (08:12)
[2020-05-14] MEDS ORDERED: CIPR500T4 PO (08:12)
[2020-05-14] MEDS ORDERED: ONDA4TAB11 PO (08:12)
[2020-05-14] MEDS ORDERED: METR500T PO (08:12)
[2020-05-14 08:22] LABS: BILIRUBIN,URINE NEGATIVE (NEGATIVE); CLARITY,URINE CLEAR; COLOR,URINE YELLOW; GLUCOSE, URINE (UA) NEGATIVE (NEGATIVE); KETONES,URINE NEGATIVE (NEGATIVE); LEUKOCYTE ESTERASE ,URINE NEGATIVE (NEGATIVE); NITRITE,URINE NEGATIVE (NEGATIVE); PH,URINE 5.5 (5-9); PROTEIN,URINE NEGATIVE (NEGATIVE)
[2020-05-14 08:31] LABS: BACTERIA,URINE NEGATIVE /HPF; SQUAMOUS EPITHELIAL CELL,UR 0-2 /HPF
[2020-05-14 08:45] VITALS: BP 156/93
== END 2020-05-14 08:45 | disposition home or self-care (01) ==
LOC: EDUNIT# 05:05 → ER 05:10
DX: K51.90 Ulcerative colitis, unspecified, without complications (principal); E03.9 Hypothyroidism, unspecified; I10 Essential (primary) hypertension; F41.9 Anxiety disorder, unspecified; F32.9 Major depressive disorder, single episode, unspecified; Z83.3 Family history of diabetes mellitus; Z82.49 Family history of ischemic heart disease and other diseases of the circulatory system; Z80.8 Family history of malignant neoplasm of other organs or systems; Z87.891 Personal history of nicotine dependence; Z79.890 Hormone replacement therapy
CPT/HCPCS: 36415; 74177; 80053; 81000; 83690; 85007; 85027; 85652; 86141

== ENCOUNTER 2020-09-03 05:45 | Emergency (ER) | payer OTHER ==
[~2020-09-03] VITALS: Ht 162.6 cm; Wt 85.0 kg
[~2020-09-03 05:45] MED LIST changes: -CIPR500T4 PO; +CIPR500T5 PO; +ESCI-2 PO; -ESCI10TA55 PO; +METR500T PO; +ONDA4TAB11 PO; -OXYC-471 PO; +OXYC1TAB11 PO; +PRD20T PO
--- NOTE | 2020-09-03 06:12 | ED Abdominal Pain ---
General Chief Complaint: Abdominal/GI Problems Stated Complaint: COLITIS Nursing Triage Note: PT AMBULATES TO ROOM #6 WITH C/O BILAT LOWER ABD DISCOMFORT, NAUSEA, ET DIARRHEA. REPORTS S/S BEGAN ON THE EVENING OF 09/02/20. REPORTS HX ULCERATIVE COLITIS. A&OX4. Sepsis Screen: No Definite Risk Source of Information: Patient Exam Limitations: No Limitations History of Present Illness Date Seen by Provider: Sep 03, 2020 Time Seen by Provider: 06:05 Initial Comments Patient is a 50-year-old female who presents to the emergency department today w ith a chief complaint of lower abdominal discomfort and nausea. Patient's also had diarrhea that is mucousy and watery. She denies any bloody stools. Patient relates to me that she has a history of ulcerative colitis. She states that she seems to have been getting "flares" more often than usual, at least once a month. Patient states that the symptoms started last night at around 11 PM. Patient states that she has a follow-up appointment tomorrow with a GI specialist in [place]. She has never seen this physician before. Patient states she is not on any medications to regulate her ulcerative colitis. On review of the medical record the patient had a colonoscopy by Dr. Yarely milner in 2014 that was unremarkable. Patient denies any urinary complaints such as dysuria, urgency or frequency. She still has her appendix and gallbladder. She denies any constitutional symptoms such as fevers, chills, cough congestion or shortness of breath. All other review of systems reviewed and negative except as stated above. Timing/Duration: 12 Hours Severity/Quality: Moderate Location: Generalized Abdomen (generalized lower abdomen) Radiation: No Radiation Activities at Onset: None Associated Symptoms: Denies Symptoms Allergies and Home Medications Allergies Coded Allergies: No Known Drug Allergies (Unverified , 11/02/17) Home Medications Ciprofloxacin HCl 500 Mg Tablet, 500 MG PO BID Prescribed by: LILIA RICK on 05/14/20811 Escitalopram Oxalate 10 Mg Tablet, 10 MG PO DAILY, (Reported) Fluticasone Propionate 9.9 Ml [place].susp, 2 SPRAYS NS DAILY PRN for CONGESTION, (Reported) Hydrocodone/Acetaminophen 1 Each Tablet, 1 EACH PO Q8H PRN for PAIN-MODERATE (5- 7) Prescribed by: LILIA RICK on 05/14/20812 Levothyroxine Sodium 100 Mcg Tablet, 100 MCG PO DAILY, (Reported) Loratadine 10 Mg Tablet, 10 MG PO DAILY, (Reported) Metoprolol Tartrate 100 Mg Tablet, 100 MG PO DAILY, (Reported) Metronidazole 500 Mg Tablet, 500 MG PO Q8H Prescribed by: ALISSA MAIER on 11/04/17 1143 Metronidazole 500 Mg Tablet, 500 MG PO TID Prescribed by: LILIA RICK on 05/14/20811 Multivitamin 1 Each Tablet, 1 TAB PO DAILY, (Reported) Ondansetron 4 Mg Tab.rapdis, 4 MG PO Q6H PRN for NAUSEA/VOMITING Prescribed by: LILIA RICK on 05/14/20811 Prednisone 20 Mg Tab, 40 MG PO DAILY Prescribed by: LILIA RICK on 05/14/20811 Quetiapine Fumarate 50 Mg Tablet, 50 MG PO HS, (Reported) Ranitidine HCl 150 Mg Tablet, 150 MG PO BID PRN for HEARTBURN, (Reported) Venlafaxine HCl 75 Mg Tab, 75 MG PO BID, (Reported) Patient Home Medication List Home Medication List Reviewed: Yes Review of Systems Review of Systems Constitutional: see HPI EENTM: No Symptoms Reported Respiratory: No Symptoms Reported Cardiovascular: No Symptoms Reported Gastrointestinal: Abdominal Pain, Diarrhea Genitourinary: No Symptoms Reported Musculoskeletal: no symptoms reported Skin: no symptoms reported All Other Systems Reviewed Negative Unless Noted: Yes Past Gxsdpue-Jevswh-Dxwwoq Hx Patient Social History Type Used: Cigarettes Former Smoker, Quit: Jun 22, 2013 Recent Infectious Disease Expo: No Recent Hopitalizations: No Immunizations Up To Date Tetanus Booster (TDap): Unknown Date of Influenza Vaccine: Jun 30, 2017 Seasonal Allergies Seasonal Allergies: Yes Past Medical History Surgeries: Yes Adenoidectomy, Hysterectomy, Tonsillectomy Respiratory: No Cardiac: Yes High Cholesterol, Hypertension Neurological: Yes (Last Seizure 2014) Seizure Disorder Reproductive Disorders: No 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 Sexually Transmitted Disease: No HIV/AIDS: No Kidney Infection Gastrointestinal: Yes Colitis Musculoskeletal: No Endocrine: Yes (Thyroid Nodules) Hypothyroidsim, Lupus HEENT: No Loss of Vision: Bilateral Hearing Impairment: Denies Cancer: No Psychosocial: Yes Sleep Difficulties, Anxiety, Depression Integumentary: No Eczema Blood Disorders: No Adverse Reaction/Blood Tranf: No Family Medical History Alcoholism 19 MOTHER Congenital heart disease G8 BROTHER Diabetes mellitus 19 FATHER Drug abuse 19 MOTHER G8 BROTHER Hypercholesterolemia 19 FATHER Hypertension 19 FATHER 19 MOTHER Kidney disease 19 FATHER Myocardial infarction 19 FATHER G8 BROTHER Neoplasm 19 FATHER (In the eye) Psychosocial problem 19 MOTHER Seizure disorder 19 MOTHER No Family History of: AIDS Abdominal aortic aneurysm [place]'s disease Alzheimer's disease Aphasia Arthritis Asthma Cancer of mouth Cardiovascular disease Cataracts Colon cancer Completed stroke Congenital disease Coronary thrombosis Cystic fibrosis Deafness or hearing loss Dementia Dysphasia Fibrocystic disease of breast Gastroenteritis Glaucoma Headache disorder Infertility Not obtainable due to adoption Osteoporosis Parkinson's disease Prostate cancer Respiratory disorder Severe allergy Thyroid disease Tuberculosis Visual disorder Asthma, Cancer, CAD Under 55 Years Old, Diabetes Physical Exam Vital Signs Vital Signs - First Documented 09/03/20 05:58 Temp 36.1 Pulse 90 Resp 18 B/P (MAP) 148/95 (112) Pulse Ox 97 O2 Delivery Room Air Capillary Refill : Less Than 3 Seconds Height/Weight/BMI Height: 5'4.00" Weight: 192lbs. 3.0oz. 87.904156ck; 32.00 BMI Method:Stated General Appearance: WD/WN, no apparent distress HEENT: PERRL/EOMI Neck: full range of motion Respiratory: lungs clear, normal breath sounds, no respiratory distress, no accessory muscle use Cardiovascular: regular rate, rhythm Gastrointestinal: soft, no organomegaly, tenderness (lower abdominal tenderness to palpation without rebound or guarding) Extremities: non-tender, normal inspection, no pedal edema, normal capillary refill Neurologic/Psychiatric: alert, normal mood/affect, oriented x 3 Skin: normal color, warm/dry Progress/Results/Core Measures Results/Orders Lab Results Laboratory Tests Test 09/03/20 06:00 Range/Units White Blood Count 10.0 4.3-11.0 10^3/uL Red Blood Count 4.63 3.80-5.11 10^6/uL Hemoglobin 13.5 11.5-16.0 g/dL Hematocrit 42 35-52 % Mean Corpuscular Volume 90 80-99 fL Mean Corpuscular Hemoglobin 29 25-34 pg Mean Corpuscular Hemoglobin Concent 32 32-36 g/dL Red Cell Distribution Width 14.6 H 10.0-14.5 % Platelet Count 378 130-400 10^3/uL Mean Platelet Volume 9.4 9.0-12.2 fL Immature Granulocyte % (Auto) 0 % Neutrophils (%) (Auto) 74 42-75 % Lymphocytes (%) (Auto) 18 12-44 % Monocytes (%) (Auto) 5 0-12 % Eosinophils (%) (Auto) 1 0-10 % Basophils (%) (Auto) 0 0-10 % Neutrophils # (Auto) 7.5 1.8-7.8 10^3/uL Lymphocytes # (Auto) 1.8 1.0-4.0 10^3/uL Monocytes # (Auto) 0.5 0.0-1.0 10^3/uL Eosinophils # (Auto) 0.1 0.0-0.3 10^3/uL Basophils # (Auto) 0.0 0.0-0.1 10^3/uL Immature Granulocyte # (Auto) 0.0 0.0-0.1 10^3/uL Sodium Level 137 135-145 MMOL/L Potassium Level 4.4 3.6-5.0 MMOL/L Chloride Level 103 98-107 MMOL/L Carbon Dioxide Level 24 21-32 MMOL/L Anion Gap 10 5-14 MMOL/L Blood Urea Nitrogen 12 7-18 MG/DL Creatinine 0.80 0.60-1.30 MG/DL Estimat Glomerular Filtration Rate > 60 BUN/Creatinine Ratio 15 Glucose Level 121 H 70-105 MG/DL Calcium Level 9.3 8.5-10.1 MG/DL Corrected Calcium 8.5-10.1 MG/DL Total Bilirubin 0.6 0.1-1.0 MG/DL Aspartate Amino Transf (AST/SGOT) 21 5-34 U/L Alanine Aminotransferase (ALT/SGPT) 36 0-55 U/L Alkaline Phosphatase 101 40-136 U/L Total Protein 8.0 6.4-8.2 GM/DL Albumin 4.7 H 3.2-4.5 GM/DL My Orders Orders - EL MONSALVE MD Cbc With Automated Diff (09/03/20 06:32) Comprehensive Metabolic Panel (09/03/20 06:32) Ed Iv/Invasive Line Start (09/03/20 06:32) Fentanyl Injection (Sublimaze Injection (09/03/20 06:45) Ondansetron Injection (Zofran Injectio (09/03/20 06:45) Medications Given in ED Current Medications Medications Dose Ordered Sig/Prudencio Route Start Time Stop Time Status Last Admin Dose Admin Fentanyl Citrate 25 mcg ONCE ONCE IVP 09/03/20 06:45 09/03/20 06:46 DC 09/03/20 06:45 25 MCG Ondansetron HCl 4 mg ONCE ONCE IVP 09/03/20 06:45 09/03/20 06:46 DC 09/03/20 06:45 4 MG Vital Signs/I&O 09/03/20 05:58 Temp 36.1 Pulse 90 Resp 18 B/P (MAP) 148/95 (112) Pulse Ox 97 O2 Delivery Room Air Blood Pressure Mean: 112 Progress Progress Note : Time: 07:09 Progress Note Patient's labs have been evaluated, CBC and Chem-12. Patient has no elevation in her white count, it is 10,000. Her chemistry is unremarkable. As the patient is afebrile and has no leukocytosis at this time we will treat her with approximately 3 days of steroids and some pain medicine for home. Patient has GI follow-up tomorrow. Exam is reassuring. No indications for CT scan of the abdomen and pelvis at this time. Patient will be given good return precautions. She is advised to keep her follow-up appointment tomorrow. She verbalizes understanding and is agreeable with the plan of care. I have advised her to watch her blood sugars when she is on the prednisone. All questions have been sought and answered and she is stable for discharge. Departure Impression Primary Impression: Abdominal pain Qualified Codes: R10.30 - Lower abdominal pain, unspecified Disposition: 01 HOME, SELF-CARE Condition: Stable Departure-Patient Inst. Decision time for Depature: 07:14 Referrals: RICKI SHAW APRN (PCP) Primary Care Physician [facility] (Family) Primary Care Physician Patient Instructions: Abdominal Pain, Adult ED Add. Discharge Instructions: Drink plenty of fluids to stay well-hydrated. Take the prednisone, 40 mg tomorrow and Tuesday. Take the pain medications as needed/directed. Do not drive and take these medications. Keep your follow-up with your GI specialist tomorrow. Return to the emergency room for worse pain, fevers, vomiting or any other emergent concerning symptoms. Scripts Hydrocodone/Acetaminophen (Hydrocodone-Acetamin 5-325 mg) 1 Each Tablet 1 TAB PO Q4H PRN for PAIN-MODERATE (5-7), #10 TAB Prov: EL MONSALVE MD 09/03/20 Prednisone (Prednisone) 20 Mg Tab 40 MG PO DAILY, #6 TAB 0 Refills Prov: EL MONSALVE MD 09/03/20 Work/School Note: Work Release Form Date Seen in the Emergency Department: Sep 03, 2020 Return to Work: Sep 04, 2020 EL MONSALVE MD Sep 03, 2020 06:12
[2020-09-03 06:38] LABS: BASOPHILS % (AUTO) 0 % (0-10); EOSINOPHILS # (AUTO) 0.1 10^3/uL (0.0-0.3); EOSINOPHILS % (AUTO) 1 % (0-10); HEMATOCRIT 42 % (35-52); HEMOGLOBIN 13.5 g/dL (11.5-16.0); LYMPHOCYTES # (AUTO) 1.8 10^3/uL (1.0-4.0); LYMPHOCYTES % (AUTO) 18 % (12-44); MEAN CORPUSCULAR HEMOGLOBIN 29 pg (25-34); MEAN CORPUSCULAR HGB CONC 32 g/dL (32-36); MEAN CORPUSCULAR VOLUME 90 fL (80-99); MEAN PLATELET VOLUME 9.4 fL (9.0-12.2); MONOCYTES # (AUTO) 0.5 10^3/uL (0.0-1.0); MONOCYTES % (AUTO) 5 % (0-12); NEUTROPHILS # (AUTO) 7.5 10^3/uL (1.8-7.8); NEUTROPHILS % (AUTO) 74 % (42-75); PLATELET COUNT 378 10^3/uL (130-400)
[2020-09-03] MEDS ORDERED: ONDANSETRON 4 MG/2 ML (SDV) Z0FRAN IVP ONE (06:45)
[2020-09-03] MEDS ORDERED: fentaNYL INJECTION 100 MCG/2 ML AMP IVP ONE (06:45)
[2020-09-03 06:50] LABS: ALBUMIN 4.7 GM/DL (3.2-4.5); CHLORIDE 103 MMOL/L (98-107); POTASSIUM 4.4 MMOL/L (3.6-5.0); SODIUM 137 MMOL/L (135-145)
[2020-09-03 06:52] LABS: CALCIUM 9.3 MG/DL (8.5-10.1)
[2020-09-03 06:53] LABS: GLUCOSE 121 MG/DL (70-105)
[2020-09-03 06:54] LABS: BILIRUBIN,TOTAL 0.6 MG/DL (0.1-1.0); CARBON DIOXIDE 24 MMOL/L (21-32)
[2020-09-03 06:56] LABS: ALKALINE PHOSPHATASE 101 U/L (40-136); GFR ESTIMATED > 60
[2020-09-03 06:57] LABS: BUN/CREATININE RATIO 15
[2020-09-03 06:59] LABS: ALANINE AMINOTRANSFERASE 36 U/L (0-55)
[2020-09-03] MEDS ORDERED: PRD20T PO (07:17)
[2020-09-03] MEDS ORDERED: ACHD5005 PO (07:17)
[2020-09-03] MEDS ORDERED: HYDROcodone/APAP 5 MG/325 MG (LORTAB) TAB PO ONE (07:30)
[2020-09-03] MEDS ORDERED: predniSONE 20 MG TAB PO ONE (07:30)
[2020-09-03 07:32] VITALS: BP 140/89
== END 2020-09-03 07:30 | disposition home or self-care (01) ==
LOC: EDUNIT# 05:45 → ER 05:49
DX: R10.84 Generalized abdominal pain (principal); F32.9 Major depressive disorder, single episode, unspecified; F41.9 Anxiety disorder, unspecified; I10 Essential (primary) hypertension; E03.9 Hypothyroidism, unspecified; Z87.891 Personal history of nicotine dependence; Z82.49 Family history of ischemic heart disease and other diseases of the circulatory system; Z83.3 Family history of diabetes mellitus; Z80.8 Family history of malignant neoplasm of other organs or systems; Z79.52 Long term (current) use of systemic steroids; Z79.890 Hormone replacement therapy
CPT/HCPCS: 36415; 80053; 85025

== ENCOUNTER → 2021-04-20 | Outpatient (CLI) | payer OTHER ==
[~2021-04-20] VITALS: Ht 162.6 cm; Wt 84.0 kg
[~2021-04-20] MED LIST changes: +ACETAMINOPHEN 500 MG TAB (TYLENOL) PO PRN; +CASIRIVIMAB/IMDEVIMAB 1,200 MG in NS (IVPB) 250 ML IV ONE; +EPINEPHrine INJECTION 1 MG/ML AMP IM PRN; +ONDANSETRON 4 MG/2 ML (SDV) Z0FRAN IV PRN; +diphenhydrAMINE 50 MG/ML INJ (BENADRYL) IV PRN
[2021-04-20 11:31] VITALS: BP 129/81
[2021-04-20 13:13] VITALS: BP 133/85
== END ==
LOC: INFUSION 11:28
PROVIDERS: ATTEND Physician Assistant
DX: U07.1 COVID-19 (principal)